=== PATIENT | female | born 1975 | race Caucasian/White ===

== ENCOUNTER 2022-05-13 13:25 | Inpatient (IN) ==
[2022-05-13] MEDS ORDERED: ONDANSETRON INJ 2 MG/ML 2 ML VIAL IV STA (13:46)
[2022-05-13] MEDS ORDERED: MoRPHine SULFATE 4 MG/ML 1 ML CARP\\VIAL IV PRN (13:46)
[2022-05-13] MEDS ORDERED: MoRPHine SULFATE 4 MG/ML 1 ML CARP\\VIAL IV STA (13:46)
[2022-05-13] MEDS ORDERED: SODIUM CHLORIDE 0.9% 1000ML 1,000 ML IV SCH (13:47)
--- NOTE | 2022-05-13 13:56 | Emergency Department Note ---
History of Present Illness General Chief complaint: Abdominal Pain Stated complaint: ABDOMINAL PAIN,SWELLING UP TO CHEST Time Seen by Provider: 05/13/22 13:32 History of Present Illness Maximum Pain Intensity: 8 Patient is a 46-year-old female with past medical history significant for hyp ertension, dyslipidemia, diabetes, anxiety, POTS, status post Whipple procedure, and recent history of acute pancreatitis who presents to the emergency department for evaluation of left-sided abdominal pain that started acutely this morning. Patient underwent a Whipple procedure for a pancreatic m ass about 9 years ago, subsequently developed diabetes. She is controlled on metformin, Lantus and sliding scale NovoLog. Patient relates that she developed left-sided abdominal pain at the beginning of April, subsequently was found to be suffering from acute pancreatitis. She was hospitalized at [facility] from through to 04/06. Patient relates that she has continued to have intermittent discomfort, and anorexia. She is unable to tolerate solids, states that it brings on abdominal pain. She is able to tolerate soft foods like applesauce, pudding and ice cream however and is able to tolerate liquids without difficulty. She was well until around 10:00 this morning, when she states that she developed a very steadily escalating left-sided abdominal pain, primarily in the upper abdomen underneath her ribs. It radiates to the epigastric region. She reports associated nausea and bloating. She is having dry heaves but no jesus vomiting. She took her normal morning medications, but nothing specifically for her pain which she rates an 8/10. She describes it as a constant, aching pain. It comes in waves. It is worse when she takes a deep breath. She states this feels very similar to her symptoms from last month. She states that she was told that the pancreatitis was secondary to alcohol use, she admitted to drinking about 5 beers on the weekends, she is abstained from alcohol strictly since her hospitalization. She was also found to have elevated triglycerides. No chest pain. No shortness of breath. She denies any fever or chills. No urinary symptoms. No diarrhea. No hematemesis, melena or hematochezia.. She does note that her blood sugars have been very labile over the last 2 days. She is following with her Dexcom and is double checking with fingerstick blood sugars. She did have a clear EGD about a month ago in follow- up for the episode of pancreatitis. Home Medications Medication Instructions Recorded Confirmed Type aspirin 81 mg chewable tablet 81 mg PO QAM 04/15/22 05/13/22 History (Aspirin Childrens) atorvastatin 40 mg tablet 40 mg PO DAILY 04/15/22 05/13/22 History insulin aspart U-100 100 unit/mL 1 sliding scale dose subcut 04/15/22 05/13/22 H istory (3 mL) subcutaneous pen (Novolog USEASDIRECTD FlexPen U-100 Insulin aspart) insulin glargine 100 unit/mL (3 14 unit subcut HS 04/15/22 05/13/22 History mL) subcutaneous pen (Lantus Solostar U-100 Insulin) metformin 500 mg tablet,extended 500 mg PO BID 04/15/22 05/13/22 History release 24 hr nadolol 40 mg tablet 40 mg PO QAM 04/15/22 05/13/22 History ondansetron HCl 4 mg tablet 4 mg PO Q6H PRN Nausea 04/15/22 05/13/22 History venlafaxine 75 mg tablet,extended 75 mg PO QAM 04/15/22 05/13/22 History release 24 hr fenofibrate nanocrystallized 145 145 mg PO QAM 05/13/22 05/13/22 History mg tablet omeprazole 20 mg capsule,delayed 20 mg PO QAM 05/13/22 05/13/22 History release Allergies Allergy/AdvReac Type Severity Reaction Status Date / Time clindamycin Allergy Intermediate itchy, Verified 05/13/22 16:17 diarrhea metoprolol Allergy Intermediate Chest Pain Verified 05/13/22 16:17 tamsulosin [From Flomax] AdvReac Mild nausea/vomi Verified 05/13/22 16:17 ting Past Med/Surg History Medical History (Updated 05/13/22 @ 18:00 by Moira Montoya PA-C) Anxiety Diabetes mellitus, type 2 History of COVID-19 beginning of 2021--mild symptoms, no symptoms now Hyperlipidemia Hypertension History of - per cardio records 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--had Whipple procedure done Pancreatitis recent admission at [facility] for this POTS (postural orthostatic tachycardia syndrome) Per cardio records Tachycardia Hx of--reason for Nadolol, per pt HR runs 85-99 with med "Inappropriate sinus tachycardia" per cardio records Transient ischemic attack (TIA) 2014--unknown cause--no deficits, on 81mg aspirin daily Surgical History History of abdominoplasty History of section History of colonoscopy History of esophagogastroduodenoscopy (EGD) History of hysterectomy History of Whipple procedure (~2013) with gallbladder removal History of wisdom tooth extraction Family History Other No family history of adverse response to anesthesia Social History Smoking Status: Never smoker Second Hand Exposure: No; Do You Dip or Chew Tobacco: No; Tobacco Cessation Education Requested by Patient: No Hx Alcohol Use: Yes Alcohol type: beer Hx Substance Use: No Preferred Language: Bulgarian Communication Ability: Effective District Commercial Superintendent Required: No Beliefs That Will Affect Care: None Current Living Situation: Spouse Other Information That Helps Us Care for You: No Feels Safe at Home: Yes Safety Concerns: Feels Safe At This Time Assistive Devices: None Review of Systems A total of 10 systems reviewed and were otherwise negative Physical Exam Vital Signs Vital Signs - 24 hr 05/13/22 13:26 05/13/22 14:11 05/13/22 15:12 Temperature 36.8 C Temperature Source Temporal Artery Scan Pulse Rate 90 Pulse Rate [Finger] 75 77 Respiratory Rate 18 18 18 Respiratory Effort / Characteristics Non-Labored Non-Labored Spontaneous Respiratory Depth Normal Normal Normal Blood Pressure 122/83 Blood Pressure [Right Arm] 136/83 114/72 Blood Pressure Mean 96 Blood Pressure Mean [Right Arm] 100 86 Blood Pressure Position Sitting Pulse Oximetry 99 96 98 Oxygen Delivery Method Room Air Room Air Room Air Sepsis Recent Fever Within 48 Hours No Sepsis New/Unexplained Change in Mental Status No Sepsis Action Taken by Nursing No Action Required CONSTITUTIONAL: Patient is an uncomfortable but otherwise nontoxic appearing 46-year-old female who is awake and alert and laying on the gurney. Spouse is at the bedside. EYES: Pupils equal, round, reactive to light and accommodation. EOMs intact without nystagmus. Sclera are anicteric. ENT: Tympanic membranes intact, with normal landmarks. External canals are clear. Oral and nasopharynx are clear. Mucous membranes are moist, no lesions, tongue and gums appear normal. CARDIOVASCULAR: Regular rate and rhythm. Peripheral pulses easily palpable. RESPIRATORY: Breath sounds equal and clear to auscultation. ABDOMEN: Bowel sounds are present. Multiple well-healed surgical scars are noted. The abdomen is mildly distended, tympanic to percussion throughout. She is quite tender to even light touch in the left mid to upper abdomen and in the epigastric region. Voluntary guarding noted. INTEGUMENTARY: No lesions or rash, normal skin turgor. LYMPH: No lymphadenopathy. Course Course The patient was seen and assessed as above. External medical records are reviewed, including [facility] records from her recent hospitalization and office visit. She presents emergency department for left-sided and epigastric abdominal pain, similar to when she had pancreatitis about 6 weeks ago. IV lock was initiated and laboratory studies were collected. EKG is performed and is as noted below. CBC with differential, CMP, magnesium, phosphorus, lipase, troponin, urinalysis and urine test were collected. She was hydrated with a liter bolus of normal saline solution then 250 cc/h, and medicated with morphine 4 mg and Zofran 4 mg IV. Laboratory studies per my interpretation note a normal white count at 9000, left shift noted. H&H 13.7 and 39.4, not indicative of anemia. no electrolyte imbalance requiring correction. Renal functions are normal. No indication for significant dehydration or ELSA. Transaminases are within normal limits. Lipase is elevated at 4789. High-sensitivity troponin is within normal limits and not indicative of ACS or AMI. Urine is contaminated with greater than 30 epithelial cells, there are 2+ bacteria noted with some WBCs and leukocyte esterase however and a urine culture is pending. The patient was reassessed. Laboratory studies were reviewed with her. She had had little relief with the initial morphine 4 mg IV but was just given a second dose of morphine 4 mg IV and was starting to feel better she rated her pain a 3/10. Laboratory studies were reviewed with her. After review of the information above and other included data, I feel the patient requires admission/observation for further care in the hospital. Case reviewed with attending physician, and with ED piano case and bench assembler and consultation was placed with the [facility] hospitalist service for further care and management. Patient was reviewed with Moira Montoya PA-C. A COVID test was obtained and is negative. Upon further questioning, the patient reports that she has had some repeat blood work since her hospitalization, and repeat lipase levels have been mildly elevated since but not as high as it was when she was hospitalized previ ously. She rested comfortably and remained stable pending hospitalist evaluation. Administered Medications Enoxaparin Sodium (Enoxaparin Inj 40 Mg/0.4 Ml Syr) 40 mg SQ Q24H TAMARA Stop: 06/12/22 19:29 Last Admin: 05/13/22 21:12 Dose: 40 mg Documented By: DIGNA Hydromorphone HCl (Hydromorphone Inj 0.5 Mg/0.5 Ml Syr) 0.5 mg IV Q6H PRN PRN Reason: Mod-Sev Pain (Scale 4-10) Stop: 05/27/22 19:09 Last Admin: 05/13/22 19:37 Dose: 0.5 mg Documented By: DIGNA Famotidine 20 mg/ Syringe 5 mls @ 2.5 mls/min IV Q12 TAMARA Stop: 06/12/22 20:59 Last Admin: 05/13/22 21:13 Dose: 2.5 mls/min Documented By: DIGNA Lactated Ringer's (Lr) 1,000 mls @ 250 mls/hr IV .Q4H TAMARA Stop: 06/12/22 19:09 Last Admin: 05/13/22 19:37 Dose: 250 mls/hr Documented By: DIGNA Insulin Aspart (Insulin Aspart Per Unit) 0 units SC ACHS TAMARA Stop: 06/12/22 20:59 Last Admin: 05/13/22 21:07 Dose: Not Given Documented By: KSJames Co-signed By: BRUNA Insulin Glargine (Lantus Per Unit Charge) 0 - 7 units SQ BID TAMARA Stop: 06/12/22 20:59 Last Admin: 05/13/22 21:11 Dose: 4 units Documented By: KSJames Co-signed By: EW Discontinued Medications Sodium Chloride (Nss 1000ml) 1,000 mls @ 999 mls/hr IV .Q1H1M TAMARA Stop: 05/13/22 14:47 Last Infusion: 05/13/22 15:11 Dose: 0 mls/hr Documented By: Admin: 05/13/22 14:06 Dose: 999 mls/hr Documented By: ANKUR Sodium Chloride (Nss 1000ml) 1,000 mls @ 250 mls/hr IV .Q4H TAMARA Stop: 06/12/22 13:59 Last Infusion: 05/13/22 19:36 Dose: 0 mls/hr Documented By: Admin: 05/13/22 17:46 Dose: 250 mls/hr Documented By: Infusion: 05/13/22 17:46 Dose: 250 mls/hr Documented By: Admin: 05/13/22 15:10 Dose: 250 mls/hr Documented By: ANKUR Ioversol (Optiray 350 100ml) 86 ml IV ONCE ONE Stop: 05/13/22 17:20 Last Admin: 05/13/22 17:21 Dose: 86 ml Documented By: ERIK Morphine Sulfate (Morphine Sulfate 4 Mg/Ml 1 Ml Carp\\Vial) 4 mg IV NOW STA Stop: 05/13/22 13:47 Last Admin: 05/13/22 14:06 Dose: 4 mg Documented By: ANKUR Morphine Sulfate (Morphine Sulfate 4 Mg/Ml 1 Ml Carp\\Vial) 4 mg IV Q1H PRN PRN Reason: Pain Stop: 05/27/22 13:45 Last Admin: 05/13/22 15:10 Dose: 4 mg Documented By: ANKUR Ondansetron HCl (Ondansetron Inj 2 Mg/Ml 2 Ml Vial) 4 mg IV NOW STA Stop: 05/13/22 13:47 Last Admin: 05/13/22 14:06 Dose: 4 mg Documented By: ANKUR Medical Decision Making Differential Diagnosis Differential diagnoses considered included acute pancreatitis, acute cholecystitis, ascending cholangitis, choledocholithiasis, aortic dissection, bowel obstruction, perforation, abscess, mass or malignancy, diverticulitis, UTI, kidney stone, pyelonephritis, among others. Medical Records Attestation: I reviewed the patient's medical records. Home Medications Current Medication List: was personally reviewed by me Laboratory Data Attestation: I reviewed the patient's lab results. 05/13/22 14:02 05/13/22 14:02 Lab Results 05/13/22 05/13/22 05/13/22 Range/Units 14:02 14:02 14:02 WBC 9.09 (4.8-10.8) K/ul RBC 4.20 (4.20-5.40) M/uL Hgb 13.7 (12.0-16.0) g/dl Hct 39.4 (37.0-47.0) % MCV 93.8 (80.0-100.0) fL MCH 32.6 (25.0-34.0) pg MCHC 34.8 (32.0-36.0) g/dL RDW Std Deviation 42.1 (36.4-46.3) fL RDW Coeff of [place] 12.2 (11.5-14.5) % Plt Count 288 (130-400) K/uL MPV 10.2 (9.4-12.4) fL Immature Gran % (Auto) 0.2 % Neut % (Auto) 72.7 % Lymph % (Auto) 17.4 % [place] % (Auto) 8.8 % Eos % (Auto) 0.6 % Baso % (Auto) 0.3 % Neut # (Auto) 6.61 H (1.40-6.50) K/uL Lymph # (Auto) 1.58 (1.2-3.4) K/uL [place] # (Auto) 0.80 H (0.11-0.59) K/uL Eos # (Auto) 0.05 (0-0.50) K/uL Baso # (Auto) 0.03 (0-0.2) K/uL Immature Gran # (Auto) 0.02 (0.01-0.20) K/uL Sodium 137 (136-145) mmol/L Potassium 4.1 (3.5-5.1) mmol/L Chloride 104 (98-107) mmol/L Carbon Dioxide 25 (21-32) mmol/L Anion Gap 8 (3-11) BUN 16 (6-23) mg/dl Creatinine 0.95 (0.6-1.2) mg/dl Est Cr Clr Drug Dosing 84.6 ml/min Est GFR ( Amer) 84.4 ml/min Est GFR (Non-Af Amer) 72.8 ml/min BUN/Creatinine Ratio 16.8 (10-20) Glucose 136 H (70-99(Fasting)) mg/dl Calcium 9.5 (8.5-10.1) mg/dl Phosphorus 3.1 (2.5-4.9) mg/dl Magnesium 1.8 (1.7-2.4) mg/dl Total Bilirubin 0.5 (0.2-1.0) mg/dl AST 19 (13-39) U/L ALT 18 (7-52) U/L Alkaline Phosphatase 71 (34-104) U/L Troponin I High Sens 2.6 (0-14) pg/ml Total Protein 7.5 (6.0-8.3) gm/dl Albumin 4.4 (3.4-5.0) gm/dl Globulin 3.1 (2.5-4.0) gm/dl Albumin/Globulin Ratio 1.4 (0.9-2) Lipase 4789 H (11-82) U/L Urine Color Yellow Urine Appearance Cloudy A (Clear) Urine pH 6.0 (4.5-7.5) Ur Specific [place] 1.019 (1.000-1.030) Urine Protein Negative (Negative) Urine Glucose (UA) Negative (Negative) Urine Ketones Negative (Negative) Urine Blood Negative (Negative) Urine Nitrite Negative (Negative) Urine Bilirubin Negative (Negative) Urine Urobilinogen Negative (Negative) Ur Leukocyte Esterase 1+ H (Negative) Urine WBC (Auto) 5-10 H (0-5) /hpf Urine RBC (Auto) 0-4 (0-4) /hpf U Hyaline Cast (Auto) 5-10 H (0-5) /lpf U Epithel Cells (Auto) >30 H (0-5) /lpf Urine Bacteria (Auto) 2+ H (Negative) Urine Yeast Not Reportable Urine Test (Negative) SARS-CoV-2, RNA, NAAT (NEGATIVE) 05/13/22 05/13/22 Range/Units 14:02 15:50 WBC (4.8-10.8) K/ul RBC (4.20-5.40) M/uL Hgb (12.0-16.0) g/dl Hct (37.0-47.0) % MCV (80.0-100.0) fL MCH (25.0-34.0) pg MCHC (32.0-36.0) g/dL RDW Std Deviation (36.4-46.3) fL RDW Coeff of [place] (11.5-14.5) % Plt Count (130-400) K/uL MPV (9.4-12.4) fL Immature Gran % (Auto) % Neut % (Auto) % Lymph % (Auto) % [place] % (Auto) % Eos % (Auto) % Baso % (Auto) % Neut # (Auto) (1.40-6.50) K/uL Lymph # (Auto) (1.2-3.4) K/uL [place] # (Auto) (0.11-0.59) K/uL Eos # (Auto) (0-0.50) K/uL Baso # (Auto) (0-0.2) K/uL Immature Gran # (Auto) (0.01-0.20) K/uL Sodium (136-145) mmol/L Potassium (3.5-5.1) mmol/L Chloride (98-107) mmol/L Carbon Dioxide (21-32) mmol/L Anion Gap (3-11) BUN (6-23) mg/dl Creatinine (0.6-1.2) mg/dl Est Cr Clr Drug Dosing ml/min Est GFR ( Amer) ml/min Est GFR (Non-Af Amer) ml/min BUN/Creatinine Ratio (10-20) Glucose (70-99(Fasting)) mg/dl Calcium (8.5-10.1) mg/dl Phosphorus (2.5-4.9) mg/dl Magnesium (1.7-2.4) mg/dl Total Bilirubin (0.2-1.0) mg/dl AST (13-39) U/L ALT (7-52) U/L Alkaline Phosphatase (34-104) U/L Troponin I High Sens (0-14) pg/ml Total Protein (6.0-8.3) gm/dl Albumin (3.4-5.0) gm/dl Globulin (2.5-4.0) gm/dl Albumin/Globulin Ratio (0.9-2) Lipase (11-82) U/L Urine Color Urine Appearance (Clear) Urine pH (4.5-7.5) Ur Specific [place] (1.000-1.030) Urine Protein (Negative) Urine Glucose (UA) (Negative) Urine Ketones (Negative) Urine Blood (Negative) Urine Nitrite (Negative) Urine Bilirubin (Negative) Urine Urobilinogen (Negative) Ur Leukocyte Esterase (Negative) Urine WBC (Auto) (0-5) /hpf Urine RBC (Auto) (0-4) /hpf U Hyaline Cast (Auto) (0-5) /lpf U Epithel Cells (Auto) (0-5) /lpf Urine Bacteria (Auto) (Negative) Urine Yeast Urine Test Negative (Negative) SARS-CoV-2, RNA, NAAT NEGATIVE (NEGATIVE) Imaging Data Radiologist's Impression: Abdomen/Pelvis CT 05/13/22 16:43 CT SCAN OF THE ABDOMEN AND PELVIS WITH IV CONTRAST CLINICAL HISTORY: Generalized abdominal pain. COMPARISON STUDY: No priors. TECHNIQUE: Following the IV administration of 86 cc of Optiray 350, CT scan of the abdomen and pelvis is performed from the lung bases to the proximal femora. Images are reviewed in the axial, sagittal, and coronal planes. IV contrast was administered without complication. A dose lowering technique was utilized adhering to the principles of ALARA. CT DOSE: 569.34 mGy.cm FINDINGS: Lung bases: The heart is normal in size and without pericardial effusion. There is a large calcified granuloma in the right lower lobe. The lung bases are otherwise clear noting dependent atelectasis. Liver: The contrast-enhanced liver is top normal in size and demonstrates diff usely diminished attenuation indicating steatosis. There is no intrahepatic biliary ductal dilatation. The hepatic veins and portal veins are patent. Gallbladder: Surgically absent noting clips in the gallbladder fossa. Spleen: Normal in size and attenuation. Pancreas: The pancreatic head is surgically absent suggesting previous Whipple procedure. There is peripancreatic inflammation and fluid consistent with acute pancreatitis. The gland enhances throughout and the duct is normal in caliber. No organized peripancreatic fluid collection is seen. The splenic vein is patent. Adrenal glands: Unremarkable. Kidneys: The contrast enhanced kidneys are normal in size and without hydronephrosis. The kidneys enhance symmetrically. Abdominal vasculature: The abdominal aorta is normal in course and caliber noting scattered foci of atherosclerotic calcification. Bowel: There is postoperative change from distal gastrectomy and gastrojejunostomy. There is moderate colonic fecal retention. No bowel obstruction is identified. The appendix is well-visualized and normal. Peritoneum: There is no intraperitoneal free air or abdominal ascites. There is a fat-containing umbilical hernia. Lymphadenopathy: None. Pelvic viscera: The bladder is normal as visualized. The uterus is surgically absent. No adnexal lesion is seen. Skeletal structures: No lytic or blastic lesions are seen. There is moderate degenerative disc space narrowing at L5-S1. IMPRESSION: 1. Findings suggest previous Whipple procedure. Correlate with the operative history. 2. There is evidence of acute pancreatitis. 3. The pancreas enhances throughout and there is no organized peripancreatic fluid collection. 4. Hepatic steatosis. 5. Additional findings as above. ACT 112: Negative or not required by law. Electronically signed by: Gerardo Cordoba M.D. 05/13/2022 5:31 PM ECG Data Attestation: I personally reviewed and interpreted this ECG as follows: Indication: + abdominal pain Rate (beats per minute): 71 Rhythm: + normal sinus ECG [place]: + Normal ECG ST segments: + Normal ST segments Comparison ECG Date: no prior available MDM Narrative See ED Course. Impression & Plan Pancreatitis, Left upper quadrant abdominal pain Discharge Plan Visit Data Chief Complaint: Abdominal Pain Stated Complaint: ABDOMINAL PAIN,SWELLING UP TO CHEST ED Provider: Raj Mejia ED Midlevel Provider: Jerman Odonnell Discharge Problem: Pancreatitis, Left upper quadrant abdominal pain Patient Disposition: Admitted As Inpatient Discharge Instructions Interventions: ED Discharge Assessment Last Done: 05/13/22 18:00
[2022-05-13 14:40] LABS: Basophils # (auto) 0.03 K/uL (0-0.2); Basophils % (auto) 0.3 %; Eosinophils # (auto) 0.05 K/uL (0-0.50); Eosinophils % (auto) 0.6 %; Hematocrit (blood only) 39.4 % (37.0-47.0); Hemoglobin 13.7 g/dl (12.0-16.0); Immature Granulocytes # (auto) 0.02 K/uL (0.01-0.20); Immature Granulocytes % (auto) 0.2 %; Lymphocytes # (auto) 1.58 K/uL (1.2-3.4); Lymphocytes % (auto) 17.4 %; Mean Corpuscular Hemoglobin 32.6 pg (25.0-34.0); Mean Corpuscular Hgb Conc 34.8 g/dL (32.0-36.0); Mean Corpuscular Volume 93.8 fL (80.0-100.0); Mean Platelet Volume 10.2 fL (9.4-12.4); Monocytes % (auto) 8.8 %; Neutrophils # (auto) 6.61 K/uL (1.40-6.50); Neutrophils % (auto) 72.7 %; Platelet Count 288 K/uL (130-400); RDW Coefficient of Variation 12.2 % (11.5-14.5); RDW Standard Deviation 42.1 fL (36.4-46.3); White Blood Count 9.09 K/ul (4.8-10.8)
[2022-05-13 14:51] LABS: Appearance Urine Cloudy (Clear); Bacteria Urine Automated 2+ (Negative); Bilirubin Urine Negative (Negative); Blood Urine Negative (Negative); Color Urine Yellow; Epithelial Cell Urine Auto >30 /lpf (0-5); Glucose Urine UA Negative (Negative); Ketones Urine Negative (Negative); Leukocyte Esterase Urine 1+ (Negative); Nitrite Urine Negative (Negative); Protein Urine Negative (Negative); RBC Urine Automated 0-4 /hpf (0-4); Specific Gravity Urine 1.019 (1.000-1.030); Urobilinogen Urine Negative (Negative)
[2022-05-13 15:08] LABS: Albumin Level 4.4 gm/dl (3.4-5.0); Bilirubin,Total 0.5 mg/dl (0.2-1.0); Calcium 9.5 mg/dl (8.5-10.1); Magnesium 1.8 mg/dl (1.7-2.4); Potassium 4.1 mmol/L (3.5-5.1)
[2022-05-13] MEDS: SODIUM CHLORIDE 0.9% 1000ML 1,000 ML IV SCH ×2 (15:10→17:46)
[2022-05-13 15:11] LABS: Pregnancy Test, Urine Negative (Negative)
[2022-05-13 15:14] LABS: BUN Creatinine Ratio 16.8 (10-20); Creatinine Clr Calc Pharmacy 84.6 ml/min; Est GFR (African American) 84.4 ml/min; Est GFR (Non-African American) 72.8 ml/min
[2022-05-13 15:39] LABS: Albumin Globulin Ratio 1.4 (0.9-2); Globulin 3.1 gm/dl (2.5-4.0); Phosphorus 3.1 mg/dl (2.5-4.9); Total Protein 7.5 gm/dl (6.0-8.3); Troponin I High Sensitivity 2.6 pg/ml (0-14)
--- NOTE | 2022-05-13 16:10 | History & Physical Report ---
Date of Service May 13, 2022 Assessment & Plan (1) Pancreatitis: (2) Left upper quadrant abdominal pain: Plan: Patient is 46-year-old female with PMH benign pancreatic NET s/p Whipple in 2013, post pancreatectomy diabetes, TIA, depression presented to ER with co mplaint of epigastric, LUQ abdominal pain, nausea that started today. H/O pancreatitis in April 2022 thought secondary to ETOH. Denies fever/chills. History EUS on 04/17/2022: Limited exam due to Whipple's anatomy, fatty liver, visualized part of the body and tail of the remnant pancreas were within normal 04/16/22 lipid panel: Total cholesterol 203, LDL: 1006, HDL: 42, triglycerides 275. In ER afebrile, vitals stable. No leukocytosis. Lipase: 4789. LFT's WNL CT Abd/pelvis: Findings suggest previous Whipple procedure. There is evidence of acute pancreatitis. The pancreas enhances throughout and there is no organized peripancreatic fluid collection. Hepatic steatosis. In ER given morphine, 1L NSS NPO LR at 250ml/hr IV Tylenol, Dilaudid prn IV pepcid, IV Protonix Continue atorvastatin, fenofibrate GI consult CBC, CMP, lipase in am (3) Abnormal urinalysis: Plan: UA: 1+ leuk esterase, >30 epithelial, 2+ bacteria. This was NOT clean catch. Patient without urinary symptoms Obtained new clean catch UA and is WNL (4) Diabetes mellitus, type 2: Plan: Diabetes s/p pancreatectomy A1c: 7.7 on 04/16/22 Hold home basal bolus insulin, metformin Basal bolus insulin per protocol (5) Hypertension: Plan: Continue nadolol (6) Hyperlipidemia: Plan: Continue atorvastatin, fenofibrate (7) Transient ischemic attack (TIA): Plan: Continue aspirin, atorvastatin (8) Depression: (9) Anxiety: Plan: Continue venlafaxine DVT Prophylaxis Lovenox SQ Full code as per discussion with pt Follows with Luz Marina Perez PA-C for routine care Pt was seen and care coordinated with Dr Marcano. See addendum I spent a total of 80 minutes reviewing notes, outpatient records, labs, medication, documenting and providing care for this patient excluding time spent in the performance of separately billed services. History of Present Illness Chief Complaint: abdominal pain Primary Care Provider: Luz Marina Perez PA-C Patient is 46-year-old female with PMH benign pancreatic NET s/p Whipple in 2013, post pancreatectomy diabetes, TIA, depression presented to ER with complaint of abdominal pain that started today. Patient reports woke up this morning and was feeling okay then later started with epigastric, left upper quadrant pain described as cramping. Reports pain radiates up to left chest. Pain aggravated with palpation or movement. States this feels similar to when she had pancreatitis last month. Also complains of nausea, dry heaves. Denies any known fever, chills. History of hospital admission at [facility] on 04/02/22-04/06/22 for pancreatitis that was thought secondary to alcohol, however had noted triglycerides while admitted and repeat outpatient fasting lipid panel was suggested. Patient reports not drinking ETOH, not taking NSAIDs. Has been having postprandial epigastric pain, nausea for months. She states since her last admission in April feels postprandial epigastric pain and bloating, nausea. She has been eating liquids, applesauce, pudding as that is what she can tolerate. Reports a couple days ago did tolerate Caesar salad. Denies fever/chills, diaphoresis, diarrhea, constipation, hematemesis DECKER, dizziness, syncope, vision changes, neck pain, SOB, orthopnea, palpitations, cough, sore throat, rhinorrhea, paresthesias, weakness, extremity weakness, extremity edema, rashes, dysuria, hematuria, urinary frequency Outpatient chart reviewed. 04/04/2022:CT abdomen pelvis: Mild. Pancreatic stranding. No peripancreatic fluid collection. Postoperative changes of prior Whipple EUS on 04/17/2022: Limited exam due to Whipple's anatomy, fatty liver, visualized part of the body and tail of the remnant pancreas were within normal 04/16/22 lipid panel: Total cholesterol 203, LDL: 1006, HDL: 42, triglycerides 275. Patient was started on fenofibrate Allergies Allergy/AdvReac Type Severity Reaction Status Date / Time clindamycin Allergy Intermediate itchy, Verified 05/13/22 16:17 diarrhea metoprolol Allergy Intermediate Chest Pain Verified 05/13/22 16:17 tamsulosin [From Flomax] AdvReac Mild nausea/vomi Verified 05/13/22 16:17 ting Home Medications Medication Instructions Recorded Confirmed Type aspirin 81 mg chewable tablet 81 mg PO QAM 04/15/22 05/13/22 History (Aspirin Childrens) atorvastatin 40 mg tablet 40 mg PO DAILY 04/15/22 05/13/22 History insulin aspart U-100 100 unit/mL 1 sliding scale dose subcut 04/15/22 05/13/22 History (3 mL) subcutaneous pen (Novolog USEASDIRECTD FlexPen U-100 Insulin aspart) insulin glargine 100 unit/mL (3 14 unit subcut HS 04/15/22 05/13/22 History mL) subcutaneous pen (Lantus Solostar U-100 Insulin) metformin 500 mg tablet,extended 500 mg PO BID 04/15/22 05/13/22 History release 24 hr nadolol 40 mg tablet 40 mg PO QAM 04/15/22 05/13/22 History ondansetron HCl 4 mg tablet 4 mg PO Q6H PRN Nausea 04/15/22 05/13/22 History venlafaxine 75 mg tablet,extended 75 mg PO QAM 04/15/22 05/13/22 History release 24 hr fenofibrate nanocrystallized 145 145 mg PO QAM 05/13/22 05/13/22 History mg tablet omeprazole 20 mg capsule,delayed 20 mg PO QAM 05/13/22 05/13/22 History release Past Med/Surg History Medical History (Updated 05/13/22 @ 18:00 by Moira Montoya PA-C) Anxiety Diabetes mellitus, type 2 History of COVID-19 beginning of 2021--mild symptoms, no symptoms now Hyperlipidemia Hypertension History of - per cardio records 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--had Whipple procedure done Pancreatitis recent admission at [facility] for this POTS (postural orthostatic tachycardia syndrome) Per cardio records Tachycardia Hx of--reason for Nadolol, per pt HR runs 85-99 with med "Inappropriate sinus tachycardia" per cardio records Transient ischemic attack (TIA) 2014--unknown cause--no deficits, on 81mg aspirin daily Surgical History History of abdominoplasty History of section History of colonoscopy History of esophagogastroduodenoscopy (EGD) History of hysterectomy History of Whipple procedure (~2013) with gallbladder removal History of wisdom tooth extraction Family History Other No family history of adverse response to anesthesia Social History Smoking Status: Never smoker Second Hand Exposure: No; Do You Dip or Chew Tobacco: No; Tobacco Cessation Education Requested by Patient: No Hx Alcohol Use: Yes Alcohol type: beer Hx Substance Use: No Preferred Language: [place]ib[place]ian Communication Ability: Effective Java J2Ee Lead Required: No Beliefs That Will Affect Care: None Current Living Situation: Spouse Other Information That Helps Us Care for You: No Feels Safe at Home: Yes Safety Concerns: Feels Safe At This Time Assistive Devices: None Review of Systems Review of Systems: All systems reviewed & are unremarkable except as noted in HPI & below Physical Exam Physical Exam: General: no distress, WDWN Head: normocephalic, atraumatic Eyes: conjunctiva non-injected, anicteric ENT: normal inspection external ears, nose, mucous membranes moist Neck: supple, trachea midline Lungs: clear, no respiratory distress, no wheezing/rhonchi/rales CV: RRR, no murmur, no pretibial edema Abd: +healed surgical scars, normal BS, soft, +tenderness to palpation epigastric, LUQ with guarding Ext: no cyanosis, no calf tenderness Neuro: A&O x 3, no focal deficits noted, normal affect Skin: warm, dry Results & Data Results & Data Vital Signs (Past 12 Hours) Vital Signs Temp Pulse Pulse Resp BP BP Pulse Ox 05/13/22 15:12 77 18 114/72 98 05/13/22 14:11 75 18 136/83 96 05/13/22 13:26 36.8 C 90 18 122/83 99 O2 Del Method 05/13/22 15:12 Room Air 05/13/22 14:11 Room Air 05/13/22 13:26 Room Air Laboratory Results Short CBC 05/13/22 Range/Units 14:02 WBC 9.09 (4.8-10.8) K/ul Hgb 13.7 (12.0-16.0) g/dl Hct 39.4 (37.0-47.0) % Plt Count 288 (130-400) K/uL BMP 05/13/22 14:02 Sodium 137 Potassium 4.1 Chloride 104 Carbon Dioxide 25 BUN 16 Creatinine 0.95 Glucose 136 H Calcium 9.5 Liver Function 05/13/22 Range/Units 14:02 Total Bilirubin 0.5 (0.2-1.0) mg/dl AST 19 (13-39) U/L ALT 18 (7-52) U/L Alkaline Phosphatase 71 (34-104) U/L Albumin 4.4 (3.4-5.0) gm/dl Urine 05/13/22 Range/Units 14:02 Urine Color Yellow Urine Appearance Cloudy A (Clear) Urine pH 6.0 (4.5-7.5) Ur Specific [place] 1.019 (1.000-1.030) Urine Protein Negative (Negative) Urine Glucose (UA) Negative (Negative) Diagnostic Findings Abdomen/Pelvis CT 05/13/22 16:43 CT SCAN OF THE ABDOMEN AND PELVIS WITH IV CONTRAST CLINICAL HISTORY: Generalized abdominal pain. COMPARISON STUDY: No priors. TECHNIQUE: Following the IV administration of 86 cc of Optiray 350, CT scan of the abdomen and pelvis is performed from the lung bases to the proximal femora. Images are reviewed in the axial, sagittal, and coronal planes. IV contrast was administered without complication. A dose lowering technique was utilized adhering to the principles of ALARA. CT DOSE: 569.34 mGy.cm FINDINGS: Lung bases: The heart is normal in size and without pericardial effusion. There is a large calcified granuloma in the right lower lobe. The lung bases are otherwise clear noting dependent atelectasis. Liver: The contrast-enhanced liver is top normal in size and demonstrates diffusely diminished attenuation indicating steatosis. There is no intrahepatic biliary ductal dilatation. The hepatic veins and portal veins are patent. Gallbladder: Surgically absent noting clips in the gallbladder fossa. Spleen: Normal in size and attenuation. Pancreas: The pancreatic head is surgically absent suggesting previous Whipple procedure. There is peripancreatic inflammation and fluid consistent with acute pancreatitis. The gland enhances throughout and the duct is normal in caliber. No organized peripancreatic fluid collection is seen. The splenic vein is patent. Adrenal glands: Unremarkable. Kidneys: The contrast enhanced kidneys are normal in size and without hydronephrosis. The kidneys enhance symmetrically. Abdominal vasculature: The abdominal aorta is normal in course and caliber noting scattered foci of atherosclerotic calcification. Bowel: There is postoperative change from distal gastrectomy and gastrojejunostomy. There is moderate colonic fecal retention. No bowel obstruction is identified. The appendix is well-visualized and normal. Peritoneum: There is no intraperitoneal free air or abdominal ascites. There is a fat-containing umbilical hernia. Lymphadenopathy: None. Pelvic viscera: The bladder is normal as visualized. The uterus is surgically absent. No adnexal lesion is seen. Skeletal structures: No lytic or blastic lesions are seen. There is moderate degenerative disc space narrowing at L5-S1. IMPRESSION: 1. Findings suggest previous Whipple procedure. Correlate with the operative history. 2. There is evidence of acute pancreatitis. 3. The pancreas enhances throughout and there is no organized peripancreatic fluid collection. 4. Hepatic steatosis. 5. Additional findings as above. ACT 112: Negative or not required by law. Electronically signed by: Gerardo Cordoba M.D. 05/13/2022 5:31 PM Supervising Physician Co-Signing Physician Notes Patient is a 46-year-old female with history of Whipple's procedure for benign pancreatic NET, post pancreatectomy diabetes, TIA and other medical problems presents with history of abdominal pain predominantly epigastric, left upper quadrant since 1 day duration. She admits to drinking alcohol socially but not on any regular basis. Patient had similar episode of pancreatitis 1 month ago. She also states having nausea but denies any vomiting, fever, chills, diarrhea. Please review HPI for complete details of presentation. I personally reviewed blood work, imaging studies and EKG. Lipase is elevated at 4789. Initial urinalysis suggestive of possible UTI but repeat urinalysis within normal limits. CT abdomen suggestive of postoperative changes from Whipple's procedure, evidence of acute pancreatitis noted. EKG showed no acute changes. On exam patient is well-built and nourished, no apparent distress, normocephalic atraumatic, EOMI, normal breath sounds, clear to auscultation, S1-S2, no murmur, no pedal edema, abdomen soft, tender predominantly epigastric, left upper and lower quadrant, normal bowel sounds, alert, awake, oriented, grossly no focal deficits. Patient is admitted for management of acute pancreatitis. We will keep her n.p.o. IV fluids, pain control, GI consulted. Check urine tox screen. I personally reviewed the record. Patient is interviewed and examined at bedside. Patient's care is coordinated with Moira Montoya PA-C. Please refer to the documentation above for details of patient's presentation and for discussion of other issues.
[2022-05-13] MEDS ORDERED: OPTIRAY 350 100ml IV ONE (17:19)
--- NOTE | 2022-05-13 17:34 | CT Scan Report ---
CT SCAN OF THE ABDOMEN AND PELVIS WITH IV CONTRAST CLINICAL HISTORY: Generalized abdominal pain. COMPARISON STUDY: No priors. TECHNIQUE: Following the IV administration of 86 cc of Optiray 350, CT scan of the abdomen and pelvi s is performed from the lung bases to the proximal femora. Images are reviewed in the axial, sagittal , and coronal planes. IV contrast was administered without complication. A dose lowering technique wa s utilized adhering to the principles of ALARA. CT DOSE: 569.34 mGy.cm FINDINGS: Lung bases: The heart is normal in size and without pericardial effusion. There is a large calcified granuloma in the right lower lobe. The lung bases are otherwise clear noting dependent atelectasis. Liver: The contrast-enhanced liver is top normal in size and demonstrates diffusely diminished attenu ation indicating steatosis. There is no intrahepatic biliary ductal dilatation. The hepatic veins and portal veins are patent. Gallbladder: Surgically absent noting clips in the gallbladder fossa. Spleen: Normal in size and attenuation. Pancreas: The pancreatic head is surgically absent suggesting previous Whipple procedure. There is pe ripancreatic inflammation and fluid consistent with acute pancreatitis. The gland enhances throughout and the duct is normal in caliber. No organized peripancreatic fluid collection is seen. The splenic vein is patent. Adrenal glands: Unremarkable. Kidneys: The contrast enhanced kidneys are normal in size and without hydronephrosis. The kidneys enh ance symmetrically. Abdominal vasculature: The abdominal aorta is normal in course and caliber noting scattered foci of a therosclerotic calcification. Bowel: There is postoperative change from distal gastrectomy and gastrojejunostomy. There is moderate colonic fecal retention. No bowel obstruction is identified. The appendix is well-visualized and no rmal. Peritoneum: There is no intraperitoneal free air or abdominal ascites. There is a fat-containing umbi lical hernia. Lymphadenopathy: None. Pelvic viscera: The bladder is normal as visualized. The uterus is surgically absent. No adnexal lesi on is seen. Skeletal structures: No lytic or blastic lesions are seen. There is moderate degenerative disc space narrowing at L5-S1. IMPRESSION: 1. Findings suggest previous Whipple procedure. Correlate with the operative history. 2. There is evidence of acute pancreatitis. 3. The pancreas enhances throughout and there is no organized peripancreatic fluid collection. 4. Hepatic steatosis. 5. Additional findings as above. ACT 112: Negative or not required by law. Electronically signed by: Gerardo Cordoba M.D. 05/13/2022 5:31 PM
[2022-05-13 18:34] LABS: Appearance Urine Clear (Clear); Bilirubin Urine Negative (Negative); Blood Urine Negative (Negative); Color Urine Yellow; Glucose Urine UA Negative (Negative); Ketones Urine Negative (Negative); Leukocyte Esterase Urine Negative (Negative); Nitrite Urine Negative (Negative); Protein Urine Negative (Negative); Specific Gravity Urine > 1.045 (1.000-1.030); Urobilinogen Urine Negative (Negative)
[2022-05-13] MEDS ORDERED: GLUCOSE 10 TAB/TUBE PO PRN (19:10)
[2022-05-13] MEDS ORDERED: DEXTROSE 50% 50 ML SYRINGE IV PRN (19:10)
[2022-05-13] MEDS ORDERED: ACETAMINOPHEN 1,000 MG/100 ML VIAL IV PRN (19:10)
[2022-05-13] MEDS ORDERED: GLUCAGON FOR INJ 1 MG VIAL SQ PRN (19:10)
[2022-05-13] MEDS ORDERED: GLUCOSE 40% GEL 15 GM TUBE PO PRN (19:10)
[2022-05-13] MEDS ORDERED: CARBOHYDRATES FOR HYPOGLYCEMIA PO PRN (19:10)
[2022-05-13] MEDS: LACTATED RINGER'S 1,000 ML IV SCH ×2 (19:37→23:14)
[2022-05-13] MEDS: HYDROmorphone INJ 0.5 MG/0.5 ML SYR IV PRN (19:37)
[2022-05-13] MEDS: INSULIN ASPART PER UNIT CHARGE SC SCH (21:07)
[2022-05-13] MEDS: LANTUS PER UNIT CHARGE SQ SCH (21:11)
[2022-05-13] MEDS: ENOXAPARIN INJ 40 MG/0.4 ML SYR SQ SCH (21:12)
[2022-05-13] MEDS: FAMOTIDINE 20 MG in SYRINGE 3 ML IV SCH (21:13)
[2022-05-14] MEDS: HYDROmorphone INJ 0.5 MG/0.5 ML SYR IV PRN ×4 (01:25→22:03)
[2022-05-14 02:35] LABS: Amphetamines+Metham, Urine Neg (Neg); Barbiturates, Urine Neg (Neg); Benzodiazepine, Urine Neg (Neg); Cocaine, Urine Neg (Neg); MDMA (Ecstacy), Urine Neg (Neg); Methadone, Urine Neg (Neg); Opiate, Urine Pos (Neg); Phencyclidine, Urine Neg (Neg)
[2022-05-14] MEDS: LACTATED RINGER'S 1,000 ML IV SCH ×5 (03:06→20:11)
[2022-05-14] MEDS: ATORVASTATIN 40 MG TAB PO SCH (08:09)
[2022-05-14] MEDS: INSULIN ASPART PER UNIT CHARGE SC SCH ×3 (08:09→17:44)
[2022-05-14] MEDS: FENOFIBRATE NANOCRYSTALLIZED 145 MG TABLET PO SCH (08:09)
[2022-05-14] MEDS: nadoloL 40 MG TAB PO SCH (08:10)
[2022-05-14] MEDS: VENLAFAXINE HCL XR 75 MG CAPXR PO SCH (08:10)
[2022-05-14] MEDS: POLYETHYLENE (MIRALAX) 17 GM PACK PO PRN (08:19)
[2022-05-14] MEDS: ASPIRIN 81 MG CHEW PO SCH (08:19)
[2022-05-14] MEDS: LANTUS PER UNIT CHARGE SQ SCH ×2 (08:19→20:03)
[2022-05-14] MEDS: FAMOTIDINE 20 MG in SYRINGE 3 ML IV SCH ×2 (08:19→20:10)
[2022-05-14 08:42] LABS: Hematocrit (blood only) 34.2 % (37.0-47.0); Hemoglobin 11.1 g/dl (12.0-16.0); Mean Corpuscular Hemoglobin 31.6 pg (25.0-34.0); Mean Corpuscular Hgb Conc 32.5 g/dL (32.0-36.0); Mean Corpuscular Volume 97.4 fL (80.0-100.0); Mean Platelet Volume 10.1 fL (9.4-12.4); Platelet Count 235 K/uL (130-400); RDW Coefficient of Variation 12.5 % (11.5-14.5); RDW Standard Deviation 44.4 fL (36.4-46.3); Red Blood Count 3.51 M/uL (4.20-5.40); White Blood Count 7.95 K/ul (4.8-10.8)
[2022-05-14 09:11] LABS: Albumin Globulin Ratio 1.5 (0.9-2); Albumin Level 3.5 gm/dl (3.4-5.0); BUN Creatinine Ratio 13.2 (10-20); Bilirubin Direct 0.1 mg/dl (0-0.2); Bilirubin,Total 0.5 mg/dl (0.2-1.0); Calcium 8.5 mg/dl (8.5-10.1); Creatinine Clr Calc Pharmacy 104.6 ml/min; Est GFR (African American) 110.6 ml/min; Est GFR (Non-African American) 95.4 ml/min; Globulin 2.4 gm/dl (2.5-4.0); Potassium 3.6 mmol/L (3.5-5.1); Total Protein 5.9 gm/dl (6.0-8.3)
[2022-05-14] MEDS: ONDANSETRON INJ 2 MG/ML 2 ML VIAL IV PRN ×2 (09:27→22:09)
--- NOTE | 2022-05-14 10:08 | Gastrointestinal Consultation ---
Date of Consultation May 14, 2022 History of Present Illness Reason for Consultation: Pancreatitis Requesting Physician: Dr. Mendoza Attending Physician: Jillian Huggins MD Allergies Allergy/AdvReac Type Severity Reaction Status Date / Time clindamycin Allergy Intermediate itchy, Verified 05/13/22 16:17 diarrhea metoprolol Allergy Intermediate Chest Pain Verified 05/13/22 16:17 tamsulosin [From Flomax] AdvReac Mild nausea/vomi Verified 05/13/22 16:17 ting Home Medications Medication Instructions Recorded Confirmed Type aspirin 81 mg chewable tablet 81 mg PO QAM 04/15/22 05/13/22 History (Aspirin Childrens) atorvastatin 40 mg tablet 40 mg PO DAILY 04/15/22 05/13/22 History insulin aspart U-100 100 unit/mL 1 sliding scale dose subcut 04/15/22 05/13/22 History (3 mL) subcutaneous pen (Novolog USEASDIRECTD FlexPen U-100 Insulin aspart) insulin glargine 100 unit/mL (3 14 unit subcut HS 04/15/22 05/13/22 History mL) subcutaneous pen (Lantus Solostar U-100 Insulin) metformin 500 mg tablet,extended 500 mg PO BID 04/15/22 05/13/22 History release 24 hr nadolol 40 mg tablet 40 mg PO QAM 04/15/22 05/13/22 History ondansetron HCl 4 mg tablet 4 mg PO Q6H PRN Nausea 04/15/22 05/13/22 History venlafaxine 75 mg tablet,extended 75 mg PO QAM 04/15/22 05/13/22 History release 24 hr fenofibrate nanocrystallized 145 145 mg PO QAM 05/13/22 05/13/22 History mg tablet omeprazole 20 mg capsule,delayed 20 mg PO QAM 05/13/22 05/13/22 History release Patient History Medical History (Updated 05/13/22 @ 18:00 by Moira Montoya PA-C) Anxiety Diabetes mellitus, type 2 History of COVID-19 beginning of 2021--mild symptoms, no symptoms now Hyperlipidemia Hypertension History of - per cardio records 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--had Whipple procedure done Pancreatitis recent admission at [facility] for this POTS (postural orthostatic tachycardia syndrome) Per cardio records Tachycardia Hx of--reason for Nadolol, per pt HR runs 85-99 with med "Inappropriate sinus tachycardia" per cardio records Transient ischemic attack (TIA) 2014--unknown cause--no deficits, on 81mg aspirin daily Surgical History History of abdominoplasty History of section History of colonoscopy History of esophagogastroduodenoscopy (EGD) History of hysterectomy History of Whipple procedure (~2013) with gallbladder removal History of wisdom tooth extraction Family History Other No family history of adverse response to anesthesia Social History Smoking Status: Never smoker Second Hand Exposure: No; Do You Dip or Chew Tobacco: No; Tobacco Cessation Education Requested by Patient: No Hx Alcohol Use: Yes Alcohol type: beer Hx Substance Use: No Preferred Language: Malaysian Communication Ability: Effective Sample Maker Original Required: No Beliefs That Will Affect Care: None Current Living Situation: Spouse Other Information That Helps Us Care for You: No Feels Safe at Home: Yes Safety Concerns: Feels Safe At This Time Assistive Devices: None Results & Data Vital Signs (Past 12 Hours) Vital Signs Temp Pulse Resp BP Pulse Ox O2 Del Method 05/14/22 07:28 36.7 C 59 L 16 107/68 99 Room Air 05/13/22 22:49 36.5 C 67 20 102/70 94 Room Air
[2022-05-14] MEDS: PANTOprazole 40 MG in SYRINGE 0 ML IV SCH (11:21)
--- NOTE | 2022-05-14 11:38 | Gastrointestinal Consultation ---
Date of Consultation May 14, 2022 Assessment & Plan (1) Pancreatitis: (2) Left upper quadrant abdominal pain: Plan Patient is a 46 y.o. female with a history of NET s/p Whipple 2013 admitted for recurrent acute pancreatitis, idiopathic at this time. -NPO. -IV fluids at 250 ml/hr. -Supportive care with IV analgesics/antiemetics PRN. -Consider adding Creon as outpatient for likely EPI. -Trend lipase. -Rest per primary team. Thank you for allowing us to participate in the care of this patient. If you have any questions or concerns, please do not hesitate to contact us. History of Present Illness Reason for Consultation: Pancreatitis Requesting Physician: Moira Montoya PA-C Attending Physician: Jillian Huggins MD History of Present Illness Patient is a 46 y.o. female with a history of NET s/p Whipple in 2013. She states that she was prescribed digestive enzymes initially after surgery but no longer is prescribed Creon. She has developed post pancreatectomy diabetes. She was admitted in April with acute pancreatitis. Did undergo an EUS by Dr. Nguyen which was unremarkable. States she recovered but her acute illness but symptoms returned yesterday with associated nausea with bilious vomiting. No fever or chills. Describes sharp pain in the LUQ and epigastric region with radiation into the lower abdomen. Lipase was elevated [place] [address] evidence of inflammatory change. Liver panel was normal. She has been made NPO and started on IV fluid resuscitation as well as IV antiemetics/analgesics. Denies any ETOH consumption in the past 2 months. No estrogen use or new medications. Reports her BSG levels have been more irregular lately. Allergies Allergy/AdvReac Type Severity Reaction Status Date / Time clindamycin Allergy Intermediate itchy, Verified 05/13/22 16:17 diarrhea metoprolol Allergy Intermediate Chest Pain Verified 05/13/22 16:17 tamsulosin [From Flomax] AdvReac Mild nausea/vomi Verified 05/13/22 16:17 ting Home Medications Medication Instructions Recorded Confirmed Type aspirin 81 mg chewable tablet 81 mg PO QAM 04/15/22 05/13/22 History (Aspirin Childrens) atorvastatin 40 mg tablet 40 mg PO DAILY 04/15/22 05/13/22 History insulin aspart U-100 100 unit/mL 1 sliding scale dose subcut 04/15/22 05/13/22 History (3 mL) subcutaneous pen (Novolog USEASDIRECTD FlexPen U-100 Insulin aspart) insulin glargine 100 unit/mL (3 14 unit subcut HS 04/15/22 05/13/22 History mL) subcutaneous pen (Lantus Solostar U-100 Insulin) metformin 500 mg tablet,extended 500 mg PO BID 04/15/22 05/13/22 History release 24 hr nadolol 40 mg tablet 40 mg PO QAM 04/15/22 05/13/22 History ondansetron HCl 4 mg tablet 4 mg PO Q6H PRN Nausea 04/15/22 05/13/22 History venlafaxine 75 mg tablet,extended 75 mg PO QAM 04/15/22 05/13/22 History release 24 hr fenofibrate nanocrystallized 145 145 mg PO QAM 05/13/22 05/13/22 History mg tablet omeprazole 20 mg capsule,delayed 20 mg PO QAM 05/13/22 05/13/22 History release Patient History Medical History Anxiety Diabetes mellitus, type 2 History of COVID-19 beginning of 2021--mild symptoms, no symptoms now Hyperlipidemia Hypertension History of - per cardio records 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--had Whipple procedure done Pancreatitis recent admission at [facility] for this POTS (postural orthostatic tachycardia syndrome) Per cardio records Tachycardia Hx of--reason for Nadolol, per pt HR runs 85-99 with med "Inappropriate sinus tachycardia" per cardio records Transient ischemic attack (TIA) 2014--unknown cause--no deficits, on 81mg aspirin daily Surgical History History of abdominoplasty History of section History of colonoscopy History of esophagogastroduodenoscopy (EGD) History of hysterectomy History of Whipple procedure (~2013) with gallbladder removal History of wisdom tooth extraction Family History Other No family history of adverse response to anesthesia Social History Smoking Status: Never smoker Second Hand Exposure: No; Do You Dip or Chew Tobacco: No; Tobacco Cessation Education Requested by Patient: No Hx Alcohol Use: Yes Alcohol type: beer Hx Substance Use: No Preferred Language: Occitan Communication Ability: Effective Roller Helper Required: No Beliefs That Will Affect Care: None Current Living Situation: Spouse Other Information That Helps Us Care for You: No Feels Safe at Home: Yes Safety Concerns: Feels Safe At This Time Assistive Devices: None Review of Systems Review of Systems: All systems reviewed & are unremarkable except as noted in HPI & below Physical Exam Constitutional: WD/WN, vitals as above Eyes: EOM intact bilaterally Neck: normal appearance Respiratory: normal respiratory effort, lungs clear to auscultation Cardiovascular: Rate/Rhythm: regular rate and regular rhythm Heart Sounds: no gallop and no murmur Gastrointestinal (Abdomen): Inspection/Auscultation: + abdomen distended and normal bowel sounds Percussion/Palpation: + abdomen tender and abdomen soft; no guarding and abdomen not rigid Musculoskeletal: Extremities: no cyanosis no lower extremity edema Skin: no rashes, warm and dry Neurologic: moves all extremities Psychiatric: A+Ox3, euthymic affect Results & Data Vital Signs (Past 12 Hours) Vital Signs Temp Pulse Resp BP Pulse Ox O2 Del Method 05/14/22 10:31 Room Air 05/14/22 07:28 36.7 C 59 L 16 107/68 99 Room Air Diagnostic Findings Laboratory Results WBC 7.95 K/ul (4.8-10.8) 05/14/22 08:07 RBC 3.51 M/uL (4.20-5.40) L 05/14/22 08:07 Hgb 11.1 g/dl (12.0-16.0) L 05/14/22 08:07 Hct 34.2 % (37.0-47.0) L 05/14/22 08:07 MCV 97.4 fL (80.0-100.0) 05/14/22 08:07 MCH 31.6 pg (25.0-34.0) 05/14/22 08:07 MCHC 32.5 g/dL (32.0-36.0) 05/14/22 08:07 RDW Std Deviation 44.4 fL (36.4-46.3) 05/14/22 08:07 RDW Coeff of [place] 12.5 % (11.5-14.5) 05/14/22 08:07 Plt Count 235 K/uL (130-400) 05/14/22 08:07 MPV 10.1 fL (9.4-12.4) 05/14/22 08:07 Immature Gran % (Auto) 0.2 % 05/13/22 14:02 Neut % (Auto) 72.7 % 05/13/22 14:02 Lymph % (Auto) 17.4 % 05/13/22 14:02 Floyd % (Auto) 8.8 % 05/13/22 14:02 Eos % (Auto) 0.6 % 05/13/22 14:02 Baso % (Auto) 0.3 % 05/13/22 14:02 Neut # (Auto) 6.61 K/uL (1.40-6.50) H 05/13/22 14:02 Lymph # (Auto) 1.58 K/uL (1.2-3.4) 05/13/22 14:02 [place] # (Auto) 0.80 K/uL (0.11-0.59) H 05/13/22 14:02 Eos # (Auto) 0.05 K/uL (0-0.50) 05/13/22 14:02 Baso # (Auto) 0.03 K/uL (0-0.2) 05/13/22 14:02 Immature Gran # (Auto) 0.02 K/uL (0.01-0.20) 05/13/22 14:02 Sodium 137 mmol/L (136-145) 05/14/22 08:07 Potassium 3.6 mmol/L (3.5-5.1) 05/14/22 08:07 Chloride 105 mmol/L (98-107) 05/14/22 08:07 Carbon Dioxide 27 mmol/L (21-32) 05/14/22 08:07 Anion Gap 5 (3-11) 05/14/22 08:07 BUN 10 mg/dl (6-23) 05/14/22 08:07 Creatinine 0.76 mg/dl (0.6-1.2) 05/14/22 08:07 Est Cr Clr Drug Dosing 104.6 ml/min 05/14/22 08:07 Est GFR ( Amer) 110.6 ml/min 05/14/22 08:07 Est GFR (Non-Af Amer) 95.4 ml/min 05/14/22 08:07 BUN/Creatinine Ratio 13.2 (10-20) 05/14/22 08:07 Glucose 124 mg/dl (70-99(Fasting)) H 05/14/22 08:07 POC Glucose 122 mg/dl (70-99) H 05/14/22 11:44 Calcium 8.5 mg/dl (8.5-10.1) 05/14/22 08:07 Phosphorus 3.1 mg/dl (2.5-4.9) 05/13/22 14:02 Magnesium 1.8 mg/dl (1.7-2.4) 05/13/22 14:02 Total Bilirubin 0.5 mg/dl (0.2-1.0) 05/14/22 08:07 Direct Bilirubin 0.1 mg/dl (0-0.2) 05/14/22 08:07 AST 15 U/L (13-39) 05/14/22 08:07 ALT 13 U/L (7-52) 05/14/22 08:07 Alkaline Phosphatase 61 U/L (34-104) 05/14/22 08:07 Troponin I High Sens 2.6 pg/ml (0-14) 05/13/22 14:02 Total Protein 5.9 gm/dl (6.0-8.3) L D 05/14/22 08:07 Albumin 3.5 gm/dl (3.4-5.0) 05/14/22 08:07 Globulin 2.4 gm/dl (2.5-4.0) L 05/14/22 08:07 Albumin/Globulin Ratio 1.5 (0.9-2) 05/14/22 08:07 Lipase 2388 U/L (11-82) H 05/14/22 08:07 Urine Color Yellow 05/13/22 18:01 Urine Appearance Clear (Clear) 05/13/22 18:01 Urine pH 7.0 (4.5-7.5) 05/13/22 18:01 Ur Specific [place] > 1.045 (1.000-1.030) H 05/13/22 18:01 Urine Protein Negative (Negative) 05/13/22 18:01 Urine Glucose (UA) Negative (Negative) 05/13/22 18:01 Urine Ketones Negative (Negative) 05/13/22 18:01 Urine Blood Negative (Negative) 05/13/22 18:01 Urine Nitrite Negative (Negative) 05/13/22 18:01 Urine Bilirubin Negative (Negative) 05/13/22 18:01 Urine Urobilinogen Negative (Negative) 05/13/22 18:01 Ur Leukocyte Esterase Negative (Negative) 05/13/22 18:01 Urine WBC (Auto) 5-10 /hpf (0-5) H 05/13/22 14:02 Urine RBC (Auto) 0-4 /hpf (0-4) 05/13/22 14:02 U Hyaline Cast (Auto) 5-10 /lpf (0-5) H 05/13/22 14:02 U Epithel Cells (Auto) >30 /lpf (0-5) H 05/13/22 14:02 Urine Bacteria (Auto) 2+ (Negative) H 05/13/22 14:02 Urine Yeast Not Reportable 05/13/22 14:02 Urine Test Negative (Negative) 05/13/22 14:02 Urine Opiates Screen Pos (Neg) H 05/14/22 01:39 Ur Methadone, Qual Neg (Neg) 05/14/22 01:39 Urine Barbiturates Neg (Neg) 05/14/22 01:39 Ur Phencyclidine (PCP) Neg (Neg) 05/14/22 01:39 U Amphetamin/Meth Scrn Neg (Neg) 05/14/22 01:39 MDMA (Ecstasy) Screen Neg (Neg) 05/14/22 01:39 U Benzodiazepines Scrn Neg (Neg) 05/14/22 01:39 Ur Cocaine Metabolite Neg (Neg) 05/14/22 01:39 U Marijuana (THC) Screen Neg (Neg) 05/14/22 01:39 SARS-CoV-2, RNA, NAAT NEGATIVE (NEGATIVE) 05/13/22 15:50 Impressions Abdomen/Pelvis CT 05/13/22 16:43 CT SCAN OF THE ABDOMEN AND PELVIS WITH IV CONTRAST CLINICAL HISTORY: Generalized abdominal pain. COMPARISON STUDY: No priors. TECHNIQUE: Following the IV administration of 86 cc of Optiray 350, CT scan of the abdomen and pelvis is performed from the lung bases to the proximal femora. Images are reviewed in the axial, sagittal, and coronal planes. IV contrast was administered without complication. A dose lowering technique was utilized adhering to the principles of ALARA. CT DOSE: 569.34 mGy.cm FINDINGS: Lung bases: The heart is normal in size and without pericardial effusion. There is a large calcified granuloma in the right lower lobe. The lung bases are otherwise clear noting dependent atelectasis. Liver: The contrast-enhanced liver is top normal in size and demonstrates diffus juan jose diminished attenuation indicating steatosis. There is no intrahepatic biliary ductal dilatation. The hepatic veins and portal veins are patent. Gallbladder: Surgically absent noting clips in the gallbladder fossa. Spleen: Normal in size and attenuation. Pancreas: The pancreatic head is surgically absent suggesting previous Whipple procedure. There is peripancreatic inflammation and fluid consistent with acute pancreatitis. The gland enhances throughout and the duct is normal in caliber. No organized peripancreatic fluid collection is seen. The splenic vein is patent. Adrenal glands: Unremarkable. Kidneys: The contrast enhanced kidneys are normal in size and without hydronephrosis. The kidneys enhance symmetrically. Abdominal vasculature: The abdominal aorta is normal in course and caliber noting scattered foci of atherosclerotic calcification. Bowel: There is postoperative change from distal gastrectomy and gastrojejunostomy. There is moderate colonic fecal retention. No bowel obstruction is identified. The appendix is well-visualized and normal. Peritoneum: There is no intraperitoneal free air or abdominal ascites. There is a fat-containing umbilical hernia. Lymphadenopathy: None. Pelvic viscera: The bladder is normal as visualized. The uterus is surgically absent. No adnexal lesion is seen. Skeletal structures: No lytic or blastic lesions are seen. There is moderate degenerative disc space narrowing at L5-S1. IMPRESSION: 1. Findings suggest previous Whipple procedure. Correlate with the operative history. 2. There is evidence of acute pancreatitis. 3. The pancreas enhances throughout and there is no organized peripancreatic fluid collection. 4. Hepatic steatosis. 5. Additional findings as above. ACT 112: Negative or not required by law. Electronically signed by: Gerardo Cordoba M.D. 05/13/2022 5:31 PM PG Care Time/CCT Total # of Minutes Spent Total Time Spent with Patient: Total time spent is greater than 50% in coordination of care (as documented) at patient's floor/unit and/or counseling patient: Coding Level of Care Code 83445 IN/OBS CONSULT LVL 3,45M Diagnoses Pancreatitis K85.90 Left upper quadrant abdominal pain R10.12
--- NOTE | 2022-05-14 11:54 | Hospitalist Progress Note ---
Date of Service May 14, 2022 Assessment & Plan (1) Pancreatitis: (2) Left upper quadrant abdominal pain: Plan: 46-year-old female with PMH benign pancreatic NET s/p Whipple in 2013, post pancreatectomy diabetes, TIA, depression presented to ER with complaint of epigastric, LUQ abdominal pain, nausea that started today. H/O pancreatitis in April 2022 thought secondary to ETOH. Denies fever/chills. History EUS on 04/17/2022: Limited exam due to Whipple's anatomy, fatty liver, visualized part of the body and tail of the remnant pancreas were within normal 04/16/22 lipid panel: Total cholesterol 203, LDL: 1006, HDL: 42, triglycerides 275. In ER afebrile, vitals stable. No leukocytosis. Lipase: 4789. LFT's WNL CT Abd/pelvis: Findings suggest previous Whipple procedure. There is evidence of acute pancreatitis. The pancreas enhances throughout and there is no organized peripancreatic fluid collection. Hepatic steatosis. In ER given morphine, 1L NSS Continue NPO Continue LR at 250ml/hr Continue IV dilaudid and tylenol for pain control GI evaluation noted Continue atorvastatin, fenofibrate (3) Abnormal urinalysis: Plan: UA: 1+ leuk esterase, >30 epithelial, 2+ bacteria. This was NOT clean catch. Patient without urinary symptoms Obtained new clean catch UA and is WNL (4) Diabetes mellitus, type 2: Plan: Diabetes s/p pancreatectomy A1c: 7.7 on 04/16/22 Hold home basal bolus insulin, metformin Basal bolus insulin per protocol (5) Hypertension: Plan: Continue nadolol (6) Hyperlipidemia: Plan: Continue atorvastatin, fenofibrate (7) Transient ischemic attack (TIA): Plan: Continue aspirin, atorvastatin (8) Depression: (9) Anxiety: Plan: Continue venlafaxine DVT Prophylaxis Lovenox SQ Full code Follows with Luz Marina Perez PA-C for routine care I spent a total of 45 minutes reviewing notes, outpatient records, labs, medication, documenting and providing care for this patient excluding time spent in the performance of separately billed services. Admission and Anticipated Discharge Date Admission Date: May 13, 2022 Subjective Patient seen and examined Reports nausea. Had an episode of vomiting this morning Reports severe abd pain Reports some episode of bloating sensation in the past with eating Denied chest pain, cough, shortness of breath, Denied dysuria, freq, urgency Denied fever, chills Physical Exam Constitutional: + well hydrated; no acute distress Eyes: PERRL, conjunctivae normal, anicteric sclerae ENMT: external ear and nose normal, oropharynx normal Respiratory: normal respiratory effort, lungs clear to auscultation Cardiovascular: Rate/Rhythm: regular rate and regular rhythm S1 S2 Gastrointestinal (Abdomen): Inspection/Auscultation: abdomen normal to inspection and normal bowel sounds; abdomen not distended Percussion/Palpation: + abdomen tender and abdomen soft; no guarding and abdomen not rigid Musculoskeletal: no cyanosis or clubbing, extremities motor strength 5/5 Neurologic: PERRL, EOMI, accommodation nl, no face palsy, no dysarthria Psychiatric: A+Ox3, euthymic affect Results & Data Results & Data Vital Signs (Past 12 Hours) Vital Signs Temp Pulse Resp BP Pulse Ox O2 Del Method 05/14/22 10:31 Room Air 05/14/22 07:28 36.7 C 59 L 16 107/68 99 Room Air Laboratory Results Abnormal lab results 05/13/22 05/13/22 05/14/22 Range/Units 18:01 21:04 01:39 RBC (4.20-5.40) M/uL Hgb (12.0-16.0) g/dl Hct (37.0-47.0) % Glucose (70-99(Fasting)) mg/dl POC Glucose 109 H (70-99) mg/dl Total Protein (6.0-8.3) gm/dl Globulin (2.5-4.0) gm/dl Lipase (11-82) U/L Ur Specific [place] > 1.045 H (1.000-1.030) Urine Opiates Screen Pos H (Neg) 05/14/22 05/14/22 05/14/22 Range/Units 07:57 08:07 08:07 RBC 3.51 L (4.20-5.40) M/uL Hgb 11.1 L (12.0-16.0) g/dl Hct 34.2 L (37.0-47.0) % Glucose 124 H (70-99(Fasting)) mg/dl POC Glucose 119 H (70-99) mg/dl Total Protein 5.9 L D (6.0-8.3) gm/dl Globulin 2.4 L (2.5-4.0) gm/dl Lipase 2388 H (11-82) U/L Ur Specific [place] (1.000-1.030) Urine Opiates Screen (Neg) 05/14/22 Range/Units 11:44 RBC (4.20-5.40) M/uL Hgb (12.0-16.0) g/dl Hct (37.0-47.0) % Glucose (70-99(Fasting)) mg/dl POC Glucose 122 H (70-99) mg/dl Total Protein (6.0-8.3) gm/dl Globulin (2.5-4.0) gm/dl Lipase (11-82) U/L Ur Specific [place] (1.000-1.030) Urine Opiates Screen (Neg)
[2022-05-14] MEDS ORDERED: Nursing to Pharmacy Communication SCH (16:00)
[2022-05-14] MEDS: ENOXAPARIN INJ 40 MG/0.4 ML SYR SQ SCH (20:10)
[2022-05-15] MEDS: LACTATED RINGER'S 1,000 ML IV SCH ×6 (00:18→21:13)
[2022-05-15] MEDS: INSULIN ASPART PER UNIT CHARGE SC SCH ×5 (00:19→22:31)
[2022-05-15] MEDS: ATORVASTATIN 40 MG TAB PO SCH (08:43)
[2022-05-15] MEDS: ASPIRIN 81 MG CHEW PO SCH (08:44)
[2022-05-15] MEDS: FAMOTIDINE 20 MG in SYRINGE 3 ML IV SCH ×2 (08:44→21:12)
[2022-05-15] MEDS: FENOFIBRATE NANOCRYSTALLIZED 145 MG TABLET PO SCH (08:44)
[2022-05-15] MEDS: VENLAFAXINE HCL XR 75 MG CAPXR PO SCH (08:44)
[2022-05-15] MEDS: nadoloL 40 MG TAB PO SCH (08:44)
[2022-05-15] MEDS: LANTUS PER UNIT CHARGE SQ SCH ×2 (08:45→22:31)
--- NOTE | 2022-05-15 09:36 | Gastroenterology Progress Note ---
Date of Service May 15, 2022 Assessment & Plan (1) Pancreatitis: (2) Left upper quadrant abdominal pain: Plan Patient is a 46 y.o. female with a history of NET s/p Whipple 2013 admitted for recurrent acute pancreatitis, idiopathic at this time. -Clear liquid diet. Advance as tolerated. -IV fluids at 250 ml/hr. -Supportive care with IV analgesics/antiemetics PRN. -Consider adding Creon as outpatient for likely EPI. -Trend lipase. -Rest per primary team. Admission and Anticipated Discharge Date Admission Date: May 13, 2022 Subjective Patient reports improved abdominal pain. Only pain with deep inspiration or movement. Rates this pain as 3/10 in intensity. No nausea or vomiting. Remains NPO this morning. Labs pending. Review of Systems Constitutional: no fever and no chills Gastrointestinal: as per Subjective / HPI Physical Exam Constitutional: WD/WN, vitals as above Respiratory: normal respiratory effort, lungs clear to auscultation Cardiovascular: Rate/Rhythm: regular rate and regular rhythm Gastrointestinal (Abdomen): Inspection/Auscultation: normal bowel sounds Percussion/Palpation: + abdomen tender (epigastric region) and abdomen soft; no guarding and abdomen not rigid Results & Data Results & Data Vital Signs (Past 12 Hours) Vital Signs Temp Pulse Resp BP BP Pulse Ox O2 Del Method 05/15/22 07:13 37.1 C 88 18 115/70 98 Room Air 05/14/22 22:07 37.2 C 79 18 111/67 98 Room Air PG Care Time/CCT Total # of Minutes Spent Total Time Spent with Patient: Total time spent is greater than 50% in coordination of care (as documented) at patient's floor/unit and/or counseling patient: Coding Level of Care Code 37751 SUB INP/OBS CARE 3/50MIN Diagnoses Pancreatitis K85.90 Left upper quadrant abdominal pain R10.12
[2022-05-15] MEDS ORDERED: Nursing to Pharmacy Communication SCH (09:45)
[2022-05-15 10:15] LABS: Hematocrit (blood only) 33.1 % (37.0-47.0); Hemoglobin 11.4 g/dl (12.0-16.0); Mean Corpuscular Hemoglobin 32.2 pg (25.0-34.0); Mean Corpuscular Hgb Conc 34.4 g/dL (32.0-36.0); Mean Corpuscular Volume 93.5 fL (80.0-100.0); Mean Platelet Volume 10.5 fL (9.4-12.4); Platelet Count 236 K/uL (130-400); RDW Coefficient of Variation 11.9 % (11.5-14.5); Red Blood Count 3.54 M/uL (4.20-5.40); White Blood Count 6.17 K/ul (4.8-10.8)
[2022-05-15 10:33] LABS: BUN Creatinine Ratio 6.8 (10-20); Calcium 8.8 mg/dl (8.5-10.1); Creatinine Clr Calc Pharmacy 107.5 ml/min; Est GFR (African American) 114.2 ml/min; Est GFR (Non-African American) 98.5 ml/min
[2022-05-15] MEDS: PANTOprazole 40 MG in SYRINGE 0 ML IV SCH (11:14)
[2022-05-15 11:47] LABS: Appearance Urine Cloudy (Clear); Bacteria Urine Automated 2+ (Negative); Bilirubin Urine Negative (Negative); Blood Urine Negative (Negative); Color Urine Yellow; Epithelial Cell Urine Auto >30 /lpf (0-5); Glucose Urine UA Negative (Negative); Ketones Urine 1+ (Negative); Leukocyte Esterase Urine 2+ (Negative); Nitrite Urine Negative (Negative); Protein Urine Negative (Negative); RBC Urine Automated 0-4 /hpf (0-4); Specific Gravity Urine 1.007 (1.000-1.030); Urobilinogen Urine Negative (Negative)
[2022-05-15] MEDS: ONDANSETRON INJ 2 MG/ML 2 ML VIAL IV PRN ×2 (12:59→18:22)
[2022-05-15] MEDS: HYDROmorphone INJ 0.5 MG/0.5 ML SYR IV PRN ×2 (13:04→23:42)
--- NOTE | 2022-05-15 13:19 | Hospitalist Progress Note ---
Date of Service May 15, 2022 Assessment & Plan (1) Pancreatitis: (2) Left upper quadrant abdominal pain: Plan: 46-year-old female with PMH benign pancreatic NET s/p Whipple in 2013, post pancreatectomy diabetes, TIA, depression presented to ER with complaint of epigastric, LUQ abdominal pain, nausea that started today. H/O pancreatitis in April 2022 thought secondary to ETOH. Denies fever/chills. History EUS on 04/17/2022: Limited exam due to Whipple's anatomy, fatty liver, visualized part of the body and tail of the remnant pancreas were within normal 04/16/22 lipid panel: Total cholesterol 203, LDL: 1006, HDL: 42, triglycerides 275. In ER afebrile, vitals stable. No leukocytosis. Lipase: 4789. LFT's WNL CT Abd/pelvis: Findings suggest previous Whipple procedure. There is evidence of acute pancreatitis. The pancreas enhances throughout and there is no organized peripancreatic fluid collection. Hepatic steatosis. In ER given morphine, 1L NSS Will stop the clear liquid diet for now Will continue NPO for the rest of the day and reassess in the morning Continue IVF LR Continue IV dilaudid and tylenol for pain control GI evaluation noted Continue atorvastatin, fenofibrate (3) Abnormal urinalysis: Plan: Since patient has dysuria Repeat UA today noted 2+ leuk esterase, 10-30 WBC. Will start empirical ceftriaxone for now for UTI Follow up urine culture (4) Diabetes mellitus, type 2: Plan: Diabetes s/p pancreatectomy A1c: 7.7 on 04/16/22 Hold home metformin Continue insulin per protocol (5) Hypertension: Plan: Continue nadolol (6) Hyperlipidemia: Plan: Continue atorvastatin, fenofibrate (7) Transient ischemic attack (TIA): Plan: Continue aspirin, atorvastatin (8) Depression: (9) Anxiety: Plan: Continue venlafaxine DVT Prophylaxis Lovenox SQ Full code Follows with Luz Marina Perez PA-C I spent a total of 40 minutes reviewing notes, outpatient records, labs, medication, documenting and providing care for this patient excluding time spent in the performance of separately billed services. Admission and Anticipated Discharge Date Admission Date: May 13, 2022 Subjective Patient seen and examined Reported doing very well this morning until she started the clear liquid diet. Reported pain worsened with diet associated with bloating and nausea. Denied chest pain, cough, shortness of breath, Denied fever, chills Reported she developed dysuria overnight. Denied urgency, hematuria Physical Exam Constitutional: + well hydrated; no acute distress Eyes: PERRL, conjunctivae normal, anicteric sclerae ENMT: external ear and nose normal, oropharynx normal Respiratory: normal respiratory effort, lungs clear to auscultation Cardiovascular: Rate/Rhythm: regular rate and regular rhythm S1 S2 Gastrointestinal (Abdomen): Inspection/Auscultation: abdomen normal to insp ection and normal bowel sounds; abdomen not distended Percussion/Palpation: + abdomen tender and abdomen soft; no guarding and abdomen not rigid Musculoskeletal: no cyanosis or clubbing, extremities motor strength 5/5 Neurologic: PERRL, EOMI, accommodation nl, no face palsy, no dysarthria Psychiatric: A+Ox3, euthymic affect Results & Data Results & Data Vital Signs (Past 12 Hours) Vital Signs Temp Pulse Resp BP Pulse Ox O2 Del Method 05/15/22 09:00 Room Air 05/15/22 07:13 37.1 C 88 18 115/70 98 Room Air Laboratory Results Abnormal lab results 05/14/22 05/15/22 05/15/22 Range/Units 16:58 09:15 09:15 RBC 3.54 L (4.20-5.40) M/uL Hgb 11.4 L (12.0-16.0) g/dl Hct 33.1 L (37.0-47.0) % BUN 5 L (6-23) mg/dl BUN/Creatinine Ratio 6.8 L (10-20) Glucose 111 H (70-99(Fasting)) mg/dl POC Glucose 102 H (70-99) mg/dl Urine Appearance (Clear) Urine pH (4.5-7.5) Urine Ketones (Negative) Ur Leukocyte Esterase (Negative) Urine WBC (Auto) (0-5) /hpf U Epithel Cells (Auto) (0-5) /lpf Urine Bacteria (Auto) (Negative) 05/15/22 05/15/22 Range/Units 12:08 Unknown RBC (4.20-5.40) M/uL Hgb (12.0-16.0) g/dl Hct (37.0-47.0) % BUN (6-23) mg/dl BUN/Creatinine Ratio (10-20) Glucose (70-99(Fasting)) mg/dl POC Glucose 134 H (70-99) mg/dl Urine Appearance Cloudy A (Clear) Urine pH 8.0 H (4.5-7.5) Urine Ketones 1+ H (Negative) Ur Leukocyte Esterase 2+ H (Negative) Urine WBC (Auto) 10-30 H (0-5) /hpf U Epithel Cells (Auto) >30 H (0-5) /lpf Urine Bacteria (Auto) 2+ H (Negative)
[2022-05-15] MEDS: cefTRIAXone SODIUM 2,000 MG in DEXTROSE 5% 50 ML IV SCH (14:02)
[2022-05-15] MEDS: ENOXAPARIN INJ 40 MG/0.4 ML SYR SQ SCH (21:12)
--- NOTE | 2022-05-15 23:40 | Electrocardiogram Report ---
Test Reason : Blood Pressure : / mmHG Vent. Rate : 071 BPM Atrial Rate : 071 BPM P-R Int : 146 ms QRS Dur : 080 ms QT Int : 408 ms P-R-T Axes : 021 024 026 degrees QTc Int : 443 ms Normal sinus rhythm Low voltage QRS Borderline ECG No previous ECGs available Confirmed by Kenroy Glaser ([id number] on 05/15/2022 11:40:44 PM Referred By: Confirmed By:Kenroy Glaser
[2022-05-16] MEDS: LACTATED RINGER'S 1,000 ML IV SCH ×6 (01:20→20:05)
[2022-05-16] MEDS ORDERED: Nursing to Pharmacy Communication SCH ×2 (05:30→19:15)
[2022-05-16] MEDS: INSULIN ASPART PER UNIT CHARGE SC SCH ×4 (06:30→20:05)
[2022-05-16 07:07] LABS: Hemoglobin 10.8 g/dl (12.0-16.0); Mean Corpuscular Hgb Conc 33.8 g/dL (32.0-36.0); Mean Corpuscular Volume 94.7 fL (80.0-100.0); Mean Platelet Volume 10.3 fL (9.4-12.4); Platelet Count 232 K/uL (130-400); RDW Coefficient of Variation 11.9 % (11.5-14.5); RDW Standard Deviation 40.6 fL (36.4-46.3); Red Blood Count 3.38 M/uL (4.20-5.40); White Blood Count 5.29 K/ul (4.8-10.8)
[2022-05-16 07:34] LABS: BUN Creatinine Ratio 6.5 (10-20); Calcium 8.4 mg/dl (8.5-10.1); Creatinine Clr Calc Pharmacy 103.3 ml/min; Est GFR (African American) 108.8 ml/min; Est GFR (Non-African American) 93.9 ml/min; Magnesium 1.4 mg/dl (1.7-2.4); Phosphorus 3.6 mg/dl (2.5-4.9); Potassium 3.7 mmol/L (3.5-5.1)
[2022-05-16] MEDS: LANTUS PER UNIT CHARGE SQ SCH ×2 (08:23→20:04)
[2022-05-16] MEDS: MAGNESIUM SULFATE / D5W 1 GM/100 ML BAG IV SCH ×2 (09:27→12:17)
[2022-05-16] MEDS: FENOFIBRATE NANOCRYSTALLIZED 145 MG TABLET PO SCH (09:32)
[2022-05-16] MEDS: VENLAFAXINE HCL XR 75 MG CAPXR PO SCH (09:32)
[2022-05-16] MEDS: nadoloL 40 MG TAB PO SCH (09:32)
[2022-05-16] MEDS: ATORVASTATIN 40 MG TAB PO SCH (09:32)
[2022-05-16] MEDS: HYDROmorphone INJ 0.5 MG/0.5 ML SYR IV PRN ×2 (09:36→23:33)
[2022-05-16] MEDS: FAMOTIDINE 20 MG in SYRINGE 3 ML IV SCH ×2 (09:36→20:06)
[2022-05-16] MEDS: ASPIRIN 81 MG CHEW PO SCH (09:36)
[2022-05-16] MEDS: PANTOprazole 40 MG in SYRINGE 0 ML IV SCH (11:14)
[2022-05-16] MEDS: ONDANSETRON INJ 2 MG/ML 2 ML VIAL IV PRN ×2 (12:20→19:20)
[2022-05-16 12:52] LABS: Codeine Urine NEGATIVE ng/mL (<50); Hydrocodone Urine NEGATIVE ng/mL (<50); Hydromor Urine 471 ng/mL (<50); Morphine Urine 3390 ng/mL (<50); Norhydrocodone Conf Ur NEGATIVE ng/mL (<50); Noroxycodone Urine NEGATIVE ng/mL (<50); Oxycodone Urine NEGATIVE ng/mL (<50); Oxymorph Urine NEGATIVE ng/mL (<50)
--- NOTE | 2022-05-16 13:07 | Hospitalist Progress Note ---
Date of Service May 16, 2022 Assessment & Plan (1) Pancreatitis: (2) Left upper quadrant abdominal pain: Plan: 46-year-old female with PMH benign pancreatic NET s/p Whipple in 2013, post pancreatectomy diabetes, TIA, depression presented to ER with complaint of epigastric, LUQ abdominal pain, nausea that started today. H/O pancreatitis in April 2022 thought secondary to ETOH. Denies fever/chills. History EUS on 04/17/2022: Limited exam due to Whipple's anatomy, fatty liver, visualized part of the body and tail of the remnant pancreas were within normal 04/16/22 lipid panel: Total cholesterol 203, LDL: 1006, HDL: 42, triglycerides 275. In ER afebrile, vitals stable. No leukocytosis. Lipase: 4789. LFT's WNL CT Abd/pelvis: Findings suggest previous Whipple procedure. There is evidence of acute pancreatitis. The pancreas enhances throughout and there is no organized peripancreatic fluid collection. Hepatic steatosis. In ER given morphine, 1L NSS Patient reported she may be able to advance diet later today Has been tolerating sips of water. Will reeval and may advance to clear liquid first later Continue IVF LR, reduce to 200/h Continue IV dilaudid prn and tylenol for pain control GI on board Continue atorvastatin, fenofibrate Replete hypomagnesemia (3) Abnormal urinalysis: Plan: Since patient has dysuria Repeat UA today noted 2+ leuk esterase, 10-30 WBC. Continue ceftriaxone for now for UTI Follow up urine culture (4) Diabetes mellitus, type 2: Plan: Diabetes s/p pancreatectomy A1c: 7.7 on 04/16/22 Hold home metformin Continue insulin per protocol (5) Hypertension: Plan: Continue nadolol (6) Hyperlipidemia: Plan: Continue atorvastatin, fenofibrate (7) Transient ischemic attack (TIA): Plan: Continue aspirin, atorvastatin (8) Depression: (9) Anxiety: Plan: Continue venlafaxine DVT Prophylaxis Lovenox SQ Full code Follows with Luz Marina Perez PA-C I spent a total of 35 minutes reviewing notes, outpatient records, labs, medication, documenting and providing care for this patient excluding time spent in the performance of separately billed services. Admission and Anticipated Discharge Date Admission Date: May 13, 2022 Subjective Patient seen and examined Reported nausea earlier today Still has abd pain, moderate but currently improving since she just got some pain meds Reported pain worsened with diet associated with bloating and nausea. Denied chest pain, cough, shortness of breath, Denied fever, chills Reported no dysuria this morning. Denied urgency, hematuria Physical Exam Constitutional: + well hydrated; no acute distress Eyes: PERRL, conjunctivae normal, anicteric sclerae ENMT: external ear and nose normal, oropharynx normal Respiratory: normal respiratory effort, lungs clear to auscultation Cardiovascular: Rate/Rhythm: regular rate and regular rhythm S1 S2 Gastrointestinal (Abdomen): Inspection/Auscultation: abdomen normal to inspection and normal bowel sounds; abdomen not distended Percussion/Palpation: + abdomen tender and abdomen soft; no guarding and abdomen not rigid Musculoskeletal: no cyanosis or clubbing, extremities motor strength 5/5 Neurologic: PERRL, EOMI, accommodation nl, no face palsy, no dysarthria Psychiatric: A+Ox3, euthymic affect Results & Data Results & Data Vital Signs (Past 12 Hours) Vital Signs Temp Pulse Resp BP Pulse Ox O2 Del Method 05/16/22 07:08 36.9 C 76 18 126/71 97 Room Air Laboratory Results Abnormal lab results 05/14/22 05/16/22 05/16/22 Range/Units 01:39 06:13 06:13 RBC 3.38 L (4.20-5.40) M/uL Hgb 10.8 L (12.0-16.0) g/dl Hct 32.0 L (37.0-47.0) % BUN 5 L (6-23) mg/dl BUN/Creatinine Ratio 6.5 L (10-20) Glucose 105 H (70-99(Fasting)) mg/dl POC Glucose (70-99) mg/dl Calcium 8.4 L (8.5-10.1) mg/dl Magnesium 1.4 L (1.7-2.4) mg/dl Ur Morphine (GC/MS) 3390 H (<50) ng/mL Ur Hydromorphone (GC/MS) 471 H (<50) ng/mL 05/16/22 05/16/22 Range/Units 06:25 12:15 RBC (4.20-5.40) M/uL Hgb (12.0-16.0) g/dl Hct (37.0-47.0) % BUN (6-23) mg/dl BUN/Creatinine Ratio (10-20) Glucose (70-99(Fasting)) mg/dl POC Glucose 101 H 115 H (70-99) mg/dl Calcium (8.5-10.1) mg/dl Magnesium (1.7-2.4) mg/dl Ur Morphine (GC/MS) (<50) ng/mL Ur Hydromorphone (GC/MS) (<50) ng/mL
[2022-05-16] MEDS: cefTRIAXone SODIUM 2,000 MG in DEXTROSE 5% 50 ML IV SCH (14:21)
[2022-05-16] MEDS: POLYETHYLENE (MIRALAX) 17 GM PACK PO PRN (19:25)
[2022-05-16] MEDS: ENOXAPARIN INJ 40 MG/0.4 ML SYR SQ SCH (20:05)
[2022-05-17] MEDS: LACTATED RINGER'S 1,000 ML IV SCH ×5 (01:12→23:02)
[2022-05-17 06:39] LABS: Hematocrit (blood only) 32.1 % (37.0-47.0); Hemoglobin 11.2 g/dl (12.0-16.0); Mean Corpuscular Hemoglobin 32.4 pg (25.0-34.0); Mean Corpuscular Hgb Conc 34.9 g/dL (32.0-36.0); Mean Corpuscular Volume 92.8 fL (80.0-100.0); Platelet Count 258 K/uL (130-400); RDW Coefficient of Variation 11.8 % (11.5-14.5); RDW Standard Deviation 39.7 fL (36.4-46.3); Red Blood Count 3.46 M/uL (4.20-5.40); White Blood Count 5.43 K/ul (4.8-10.8)
[2022-05-17 06:57] LABS: BUN Creatinine Ratio 5.6 (10-20); Calcium 8.7 mg/dl (8.5-10.1); Creatinine Clr Calc Pharmacy 110.4 ml/min; Est GFR (Non-African American) 101.9 ml/min; Magnesium 1.6 mg/dl (1.7-2.4); Phosphorus 3.5 mg/dl (2.5-4.9); Potassium 3.8 mmol/L (3.5-5.1)
[2022-05-17] MEDS: HYDROmorphone INJ 0.5 MG/0.5 ML SYR IV PRN ×2 (09:28→20:36)
[2022-05-17] MEDS: ATORVASTATIN 40 MG TAB PO SCH (09:32)
[2022-05-17] MEDS: VENLAFAXINE HCL XR 75 MG CAPXR PO SCH (09:32)
[2022-05-17] MEDS: nadoloL 40 MG TAB PO SCH (09:32)
[2022-05-17] MEDS: FENOFIBRATE NANOCRYSTALLIZED 145 MG TABLET PO SCH (09:32)
[2022-05-17] MEDS: INSULIN ASPART PER UNIT CHARGE SC SCH ×4 (09:35→21:22)
[2022-05-17] MEDS: LANTUS PER UNIT CHARGE SQ SCH ×2 (09:39→21:28)
[2022-05-17] MEDS: FAMOTIDINE 20 MG in SYRINGE 3 ML IV SCH ×2 (09:52→20:36)
[2022-05-17] MEDS: ASPIRIN 81 MG CHEW PO SCH (09:52)
[2022-05-17] MEDS: MAGNESIUM SULFATE / D5W 1 GM/100 ML BAG IV SCH ×2 (10:46→12:46)
--- NOTE | 2022-05-17 12:29 | Hospitalist Progress Note ---
Date of Service May 17, 2022 Assessment & Plan (1) Pancreatitis: (2) Left upper quadrant abdominal pain: Plan: 46-year-old female with PMH benign pancreatic NET s/p Whipple in 2013, post pancreatectomy diabetes, TIA, depression presented to ER with complaint of epigastric, LUQ abdominal pain, nausea that started today. H/O pancreatitis in April 2022 thought secondary to ETOH. Denies fever/chills. History EUS on 04/17/2022: Limited exam due to Whipple's anatomy, fatty liver, visualized part of the body and tail of the remnant pancreas were within normal 04/16/22 lipid panel: Total cholesterol 203, LDL: 1006, HDL: 42, triglycerides 275. In ER afebrile, vitals stable. No leukocytosis. Lipase: 4789. LFT's WNL CT Abd/pelvis: Findings suggest previous Whipple procedure. There is evidence of acute pancreatitis. The pancreas enhances throughout and there is no organized peripancreatic fluid collection. Hepatic steatosis. In ER given morphine, 1L NSS Continue full liquid diet today Continue IVF LR Continue IV dilaudid prn and tylenol for pain control GI on board Continue atorvastatin, fenofibrate Replete hypomagnesemia (3) Abnormal urinalysis: Plan: Since patient has dysuria Repeat UA today noted 2+ leuk esterase, 10-30 WBC. Continue ceftriaxone for now for UTI Urine culture noted gardnerella-like bacilli (4) Diabetes mellitus, type 2: Plan: Diabetes s/p pancreatectomy A1c: 7.7 on 04/16/22 Hold home metformin Continue insulin per protocol (5) Hypertension: Plan: Continue nadolol (6) Hyperlipidemia: Plan: Continue atorvastatin, fenofibrate (7) Transient ischemic attack (TIA): Plan: Continue aspirin, atorvastatin (8) Depression: (9) Anxiety: Plan: Continue venlafaxine DVT Prophylaxis Lovenox SQ Full code Follows with Luz Marina Perez PA-C at bedside updated I spent a total of 40 minutes reviewing notes, outpatient records, labs, medication, documenting and providing care for this patient excluding time spent in the performance of separately billed services. Admission and Anticipated Discharge Date Admission Date: May 13, 2022 Subjective Patient seen and examined Reported she has been tolerating full liquid yesterday However, stated this morning she had nausea and increased abd pain after eating earlier Pain is controlled now Denied chest pain, cough, shortness of breath, Denied fever, chills Reported no dysuria today. Denied urgency, hematuria Reported a brief palpitation earlier but denied chest pain or shortness of breath at the time Physical Exam Constitutional: + well hydrated; no acute distress Eyes: PERRL, conjunctivae normal, anicteric sclerae ENMT: external ear and nose normal, oropharynx normal Respiratory: normal respiratory effort, lungs clear to auscultation Cardiovascular: Rate/Rhythm: regular rate and regular rhythm S1 S2 Gastrointestinal (Abdomen): Inspection/Auscultation: abdomen normal to inspection and normal bowel sounds; abdomen not distended Percussion/Palpation: + abdomen tender and abdomen soft; no guarding and abdomen not rigid Musculoskeletal: no cyanosis or clubbing, extremities motor strength 5/5 Neurologic: PERRL, EOMI, accommodation nl, no face palsy, no dysarthria Psychiatric: A+Ox3, euthymic affect Results & Data Results & Data Vital Signs (Past 12 Hours) Vital Signs Temp Pulse Resp BP Pulse Ox O2 Del Method 05/17/22 07:35 36.7 C 72 18 122/72 95 Room Air Laboratory Results Abnormal lab results 05/16/22 05/17/22 05/17/22 Range/Units 19:55 06:23 06:23 RBC 3.46 L (4.20-5.40) M/uL Hgb 11.2 L (12.0-16.0) g/dl Hct 32.1 L (37.0-47.0) % BUN 4 L (6-23) mg/dl BUN/Creatinine Ratio 5.6 L (10-20) Glucose 121 H (70-99(Fasting)) mg/dl POC Glucose 172 H (70-99) mg/dl Magnesium 1.6 L (1.7-2.4) mg/dl 05/17/22 05/17/22 05/17/22 Range/Units 08:32 10:08 12:18 RBC (4.20-5.40) M/uL Hgb (12.0-16.0) g/dl Hct (37.0-47.0) % BUN (6-23) mg/dl BUN/Creatinine Ratio (10-20) Glucose (70-99(Fasting)) mg/dl POC Glucose 127 H 169 H 138 H (70-99) mg/dl Magnesium (1.7-2.4) mg/dl
[2022-05-17] MEDS: PANTOprazole 40 MG in SYRINGE 0 ML IV SCH (12:45)
[2022-05-17] MEDS: ONDANSETRON INJ 2 MG/ML 2 ML VIAL IV PRN (14:47)
[2022-05-17] MEDS: cefTRIAXone SODIUM 2,000 MG in DEXTROSE 5% 50 ML IV SCH (16:31)
[2022-05-17] MEDS: ENOXAPARIN INJ 40 MG/0.4 ML SYR SQ SCH (20:36)
[2022-05-18] MEDS: LACTATED RINGER'S 1,000 ML IV SCH ×5 (03:45→23:59)
[2022-05-18] MEDS: HYDROmorphone INJ 0.5 MG/0.5 ML SYR IV PRN ×2 (03:49→22:21)
[2022-05-18 07:21] LABS: Albumin Globulin Ratio 1.3 (0.9-2); Albumin Level 3.5 gm/dl (3.4-5.0); BUN Creatinine Ratio 3.7 (10-20); Bilirubin,Total 0.3 mg/dl (0.2-1.0); Calcium 8.9 mg/dl (8.5-10.1); Creatinine Clr Calc Pharmacy 98.2 ml/min; Est GFR (African American) 102.4 ml/min; Est GFR (Non-African American) 88.3 ml/min; Globulin 2.8 gm/dl (2.5-4.0); Magnesium 1.7 mg/dl (1.7-2.4); Phosphorus 3.9 mg/dl (2.5-4.9); Potassium 3.7 mmol/L (3.5-5.1); Total Protein 6.3 gm/dl (6.0-8.3)
[2022-05-18] MEDS: ONDANSETRON INJ 2 MG/ML 2 ML VIAL IV PRN (08:17)
[2022-05-18] MEDS: ACETAMINOPHEN 325 MG TAB PO PRN ×3 (08:23→20:28)
[2022-05-18] MEDS ORDERED: PROMETHAZINE HCL 12.5 MG in SODIUM CHLORIDE 0.9% 50 ML IV STA (08:44)
[2022-05-18] MEDS: INSULIN ASPART PER UNIT CHARGE SC SCH ×4 (09:47→21:11)
[2022-05-18] MEDS: ASPIRIN 81 MG CHEW PO SCH (09:48)
[2022-05-18] MEDS: ATORVASTATIN 40 MG TAB PO SCH (09:48)
[2022-05-18] MEDS: nadoloL 40 MG TAB PO SCH (09:49)
[2022-05-18] MEDS: VENLAFAXINE HCL XR 75 MG CAPXR PO SCH (09:49)
[2022-05-18] MEDS: FENOFIBRATE NANOCRYSTALLIZED 145 MG TABLET PO SCH (09:49)
[2022-05-18] MEDS: LANTUS PER UNIT CHARGE SQ SCH ×2 (10:14→21:11)
[2022-05-18] MEDS: FAMOTIDINE 20 MG in SYRINGE 3 ML IV SCH (10:14)
--- NOTE | 2022-05-18 10:50 | Electrocardiogram Report ---
Test Reason : Blood Pressure : / mmHG Vent. Rate : 064 BPM Atrial Rate : 064 BPM P-R Int : 152 ms QRS Dur : 084 ms QT Int : 474 ms P-R-T Axes : 019 006 -16 degrees QTc Int : 489 ms Normal sinus rhythm Low voltage QRS Abnormal ECG When compared with ECG of 13-MAY-2022 13:54, Inverted T waves have replaced nonspecific T wave abnormality in Inferior leads Confirmed by Drew Duong ([id number]) on 05/18/2022 10:50:20 AM Referred By: REFERRED SELF Confirmed By:Jamir Duong
[2022-05-18] MEDS: PANTOprazole 40 MG TAB PO SCH (11:22)
[2022-05-18] MEDS ORDERED: OPTIRAY 350 100ml IV ONE (12:57)
--- NOTE | 2022-05-18 12:58 | Hospitalist Progress Note ---
Date of Service May 18, 2022 Assessment & Plan (1) Pancreatitis: (2) Left upper quadrant abdominal pain: Plan: 46-year-old female with PMH benign pancreatic NET s/p Whipple in 2013, post pancreatectomy diabetes, TIA, depression presented to ER with complaint of epigastric, LUQ abdominal pain, nausea that started today. H/O pancreatitis in April 2022 thought secondary to ETOH. Denies fever/chills. History EUS on 04/17/2022: Limited exam due to Whipple's anatomy, fatty liver, visualized part of the body and tail of the remnant pancreas were within normal 04/16/22 lipid panel: Total cholesterol 203, LDL: 1006, HDL: 42, triglycerides 275. In ER afebrile, vitals stable. No leukocytosis. Lipase: 4789. LFT's WNL On admission, CT Abd/pelvis: Findings suggest previous Whipple procedure. There is evidence of acute pancreatitis. The pancreas enhances throughout and there is no organized peripancreatic fluid collection. Hepatic steatosis. Considering persistent symptoms and now vomiting today, I repeated CT abd/Pelvis which noted residual pancreatitis and decreased inflammation without fluid collection. Continue IVF LR for now Continue IV dilaudid prn and tylenol for pain control Advance to soft diet tonight if patient tolerates Continue atorvastatin, fenofibrate (3) Abnormal urinalysis: Plan: Since patient has dysuria Repeat UA today noted 2+ leuk esterase, 10-30 WBC. Continue ceftriaxone for now for UTI to complete 5 day therapy tomorrow Urine culture noted gardnerella-like bacilli (4) Diabetes mellitus, type 2: Plan: Diabetes s/p pancreatectomy A1c: 7.7 on 04/16/22 Hold home metformin Continue insulin per protocol (5) Hypertension: Plan: Continue nadolol (6) Hyperlipidemia: Plan: Continue atorvastatin, fenofibrate (7) Transient ischemic attack (TIA): Plan: Continue aspirin, atorvastatin (8) Depression: (9) Anxiety: Plan: Continue venlafaxine DVT Prophylaxis Lovenox SQ Full code Follows with Luz Marina Perez PA-C I spent a total of 40 minutes reviewing notes, outpatient records, labs, medication, documenting and providing care for this patient excluding time spent in the performance of separately billed services. Admission and Anticipated Discharge Date Admission Date: May 13, 2022 Subjective Patient seen and examined Reported nausea Had bilous vomiting this morning Still has abd pain Denied chest pain, cough, shortness of breath, Denied fever, chills Reported no dysuria today. Denied urgency, hematuria Physical Exam Constitutional: + well hydrated; no acute distress Eyes: PERRL, conjunctivae normal, anicteric sclerae ENMT: external ear and nose normal, oropharynx normal Respiratory: normal respiratory effort, lungs clear to auscultation Cardiovascular: Rate/Rhythm: regular rate and regular rhythm S1 S2 Gastrointestinal (Abdomen): Inspection/Auscultation: abdomen normal to inspection and normal bowel sounds; abdomen not distended Percussion/Palpation: + abdomen tender (Epigastrium) and abdomen soft; no guarding and abdomen not rigid Musculoskeletal: no cyanosis or clubbing, extremities motor strength 5/5 Neurologic: PERRL, EOMI, accommodation nl, no face palsy, no dysarthria Psychiatric: A+Ox3, euthymic affect Results & Data Results & Data Vital Signs (Past 12 Hours) Vital Signs Temp Pulse Resp BP Pulse Ox O2 Del Method 05/18/22 07:37 36.8 C 77 16 133/74 98 Room Air Laboratory Results Abnormal lab results 05/17/22 05/17/22 05/18/22 Range/Units 17:11 20:47 06:33 BUN 3 L (6-23) mg/dl BUN/Creatinine Ratio 3.7 L (10-20) Glucose 121 H (70-99(Fasting)) mg/dl POC Glucose 152 H 111 H (70-99) mg/dl 05/18/22 05/18/22 Range/Units 07:58 12:05 BUN (6-23) mg/dl BUN/Creatinine Ratio (10-20) Glucose (70-99(Fasting)) mg/dl POC Glucose 108 H 108 H (70-99) mg/dl
--- NOTE | 2022-05-18 13:32 | CT Scan Report ---
CT abdomen w IV con CLINICAL HISTORY: Pancreatitis. Persistent symptoms. Reeval TECHNIQUE: Helical axial images of the abdomen were obtained. Automated dose lowering techniques and/ or adjustment according to patient size were utilized for this exam. This exam was performed with in travenous contrast. CT DOSE: 595.62 mGycm Comparison: Comparison is made to CT abdomen pelvis 05/13/2022 FINDINGS: Lower chest: Bibasilar atelectasis versus scarring is seen. Liver: Unremarkable. No focal lesions are seen. Gallbladder and biliary tree: Patient is status post cholecystectomy. No intra- or extrahepatic bilia ry ductal dilation. Pancreas: Perinephric stranding is seen. No jesus pancreatic hypoenhancement. Postsurgical changes ar e again noted about the pancreas. Spleen: Unremarkable. Adrenals: Unremarkable. Kidneys and ureters: Nonobstructive stones are seen in the left kidney. Bowel: The appendix is normal. Lymph nodes Retroperitoneal: Unremarkable. Mesenteric: Unremarkable. Peritoneum: Normal. Vessels: Unremarkable. Abdominal wall: Unremarkable. Bones: Normal degenerative changes are seen most prominent at L5-S1. IMPRESSION: Mild peripancreatic stranding is seen which may represent residual pancreatitis. Overall inflammatory appearance has significantly decreased from prior exam. No fluid collections are seen to suggest pse udocyst formation. Postsurgical changes are again noted about the pancreas. ACT 112: Negative or not required by law. Electronically signed by: Drake Arechiga M.D. 05/18/2022 1:30 PM
[2022-05-18] MEDS: cefTRIAXone SODIUM 2,000 MG in DEXTROSE 5% 50 ML IV SCH (13:54)
[2022-05-18] MEDS: ENOXAPARIN INJ 40 MG/0.4 ML SYR SQ SCH (19:23)
[2022-05-19] MEDS: LACTATED RINGER'S 1,000 ML IV SCH ×2 (04:49→11:24)
[2022-05-19 07:22] LABS: Hematocrit (blood only) 33.9 % (37.0-47.0); Hemoglobin 11.5 g/dl (12.0-16.0); Mean Corpuscular Hemoglobin 31.4 pg (25.0-34.0); Mean Corpuscular Hgb Conc 33.9 g/dL (32.0-36.0); Mean Corpuscular Volume 92.6 fL (80.0-100.0); Mean Platelet Volume 10.2 fL (9.4-12.4); Platelet Count 310 K/uL (130-400); RDW Standard Deviation 40.8 fL (36.4-46.3); Red Blood Count 3.66 M/uL (4.20-5.40)
[2022-05-19] MEDS ORDERED: oxyCODONE HCL IR 5 MG TAB (IMMEDIATE RELEASE) PO PRN (07:37)
[2022-05-19 07:43] LABS: BUN Creatinine Ratio 5.1 (10-20); Calcium 8.9 mg/dl (8.5-10.1); Creatinine Clr Calc Pharmacy 100.7 ml/min; Est GFR (African American) 105.5 ml/min; Magnesium 1.4 mg/dl (1.7-2.4); Potassium 3.6 mmol/L (3.5-5.1)
[2022-05-19] MEDS: FENOFIBRATE NANOCRYSTALLIZED 145 MG TABLET PO SCH (08:38)
[2022-05-19] MEDS: ASPIRIN 81 MG CHEW PO SCH (08:38)
[2022-05-19] MEDS: ATORVASTATIN 40 MG TAB PO SCH (08:38)
[2022-05-19] MEDS: PANTOprazole 40 MG TAB PO SCH (08:38)
[2022-05-19] MEDS: nadoloL 40 MG TAB PO SCH (08:38)
[2022-05-19] MEDS: VENLAFAXINE HCL XR 75 MG CAPXR PO SCH (08:39)
[2022-05-19] MEDS: POLYETHYLENE (MIRALAX) 17 GM PACK PO PRN (08:46)
[2022-05-19] MEDS ORDERED: MAGNESIUM OXIDE 400 MG TAB PO SCH (09:00)
[2022-05-19] MEDS: LANTUS PER UNIT CHARGE SQ SCH (09:20)
[2022-05-19] MEDS: INSULIN ASPART PER UNIT CHARGE SC SCH ×2 (09:21→13:01)
[2022-05-19] MEDS: MAGNESIUM SULFATE / D5W 1 GM/100 ML BAG IV SCH ×2 (09:26→12:15)
--- NOTE | 2022-05-19 11:32 | Discharge Summary ---
Discharge Summary Date of Service May 19, 2022 Notes For Next Care Provider Patient was admitted with acute pancreatitis. She was treated conservatively with bowel rest, IV fluids and IV analgesia. She wished to switch to [facility] gastroenterology and establish with providers while inpatient. She will need follow-up with [facility] gastroenterology at discharge. Hospital course was complicated by hypomagnesemia. On day of discharge her magnesium was 1.4 and she received 2 g of IV magnesium sulfate. She is being discharged on oral magnesium oxide. Recommend repeat magnesium level at follow-up appointment. She was also treated with IV Rocephin for 5 days due to Gardnerella like bacilli UTI. Medication Changes From Visit Magnesium oxide 400 mg once daily. Admission HPI Per Admitting Provider Patient is 46-year-old female with PMH benign pancreatic NET s/p Whipple in 2013, post pancreatectomy diabetes, TIA, depression presented to ER with complaint of abdominal pain that started today. Patient reports woke up this morning and was feeling okay then later started with epigastric, left upper quadrant pain described as cramping. Reports pain radiates up to left chest. Pain aggravated with palpation or movement. States this feels similar to when she had pancreatitis last month. Also complains of nausea, dry heaves. Denies any known fever, chills. History of hospital admission at [facility] on 04/02/22-04/06/22 for pancreatitis that was thought secondary to alcohol, however had noted triglycerides while admitted and repeat outpatient fasting lipid panel was suggested. Patient reports not drinking ETOH, not taking NSAIDs. Has been having postprandial epigastric pain, nausea for months. She states since her last admission in April feels postprandial epigastric pain and bloating, nausea. She has been eating liquids, applesauce, pudding as that is what she can tolerate. Reports a couple days ago did tolerate Caesar salad. Denies fever/chills, diaphoresis, diarrhea, constipation, hematemesis DECKER, dizziness, syncope, vision changes, neck pain, SOB, orthopnea, palpitations, cough, sore throat, rhinorrhea, paresthesias, weakness, extremity weakness, extremity edema, rashes, dysuria, hematuria, urinary frequency Outpatient chart reviewed. 04/04/2022:CT abdomen pelvis: Mild. Pancreatic stranding. No peripancreatic fluid collection. Postoperative changes of prior Whipple EUS on 04/17/2022: Limited exam due to Whipple's anatomy, fatty liver, visualized part of the body and tail of the remnant pancreas were within normal 04/16/22 lipid panel: Total cholesterol 203, LDL: 1006, HDL: 42, triglycerides 275. Patient was started on fenofibrate Admission Exam Per Admitting Provider General: no distress, WDWN Head: normocephalic, atraumatic Eyes: conjunctiva non-injected, anicteric ENT: normal inspection external ears, nose, mucous membranes moist Neck: supple, trachea midline Lungs: clear, no respiratory distress, no wheezing/rhonchi/rales CV: RRR, no murmur, no pretibial edema Abd: +healed surgical scars, normal BS, soft, +tenderness to palpation epigastric, LUQ with guarding Ext: no cyanosis, no calf tenderness Neuro: A&O x 3, no focal deficits noted, normal affect Skin: warm, dry Principal Dx & Hospital Course #1 = Principal Diagnosis (1) Pancreatitis: (2) Left upper quadrant abdominal pain: This is a 46-year-old female with PMH benign pancreatic NET s/p Whipple in 2013, post pancreatectomy diabetes, TIA, depression presented to ER with complaint of epigastric, LUQ abdominal pain, nausea that started on day of admission, 05/13/22. She has H/O pancreatitis in April 2022 thought secondary to ETOH. She has history of EUS on 04/17/2022: Limited exam due to Whipple's anatomy, fatty liver, visualized part of the body and tail of the remnant pancreas were within normal limits. Her 04/16/22 lipid panel revealed Total cholesterol 203, LDL: 1006, HDL: 42, & triglycerides 275. On admission her lipase was 4789 and LFTs WNL. Initial CT scan of abdomen pelvis reveal previous Whipple procedure, evidence of acute pancreatitis and no fluid collection noted. Hepatic steatosis was noted on imaging. She was treated conservatively with supportive care, bowel rest, aggressive IV fluid resuscitation, antiemetics and IV analgesia. Her symptoms gradually resolved. She did have subsequent vomiting on 05/18 therefore repeat CAT scan was obtained which showed residual and resolving pancreatitis. Her hospital course was complicated by hypomagnesemia which was repleted. On day of discharge her magnesium was 1.4 and she received 2 g of IV magnesium sulfate and will be discharged on oral magnesium supplementation. She was also treated with IV Rocephin for a 5-day course secondary to UTI symptoms and a urine culture growing Gardnerella like bacilli. On day of discharge, 05/19/2022 patient's abdominal pain has resolved and she is tolerating a diabetic and low-fat diet. She offers no acute concerns and will follow-up with gastroenterology as outpatient. Per gastroenterology it is noted that she may need and benefit from Creon but will evaluate on follow up. She continued her medications and her chronic medical conditions remained stable throughout hospital stay. (3) Abnormal urinalysis: (4) Diabetes mellitus, type 2: (5) Hypertension: (6) Hyperlipidemia: (7) Transient ischemic attack (TIA): (8) Depression: (9) Anxiety: Discharge Exam Gen: WD/WN, NAD, A&O x3 HEENT: Normocephalic, atraumatic, conjunctivae moist, sclerae anicteric, mucous membranes moist. Lung: Clear to Auscultation bilaterally, no wheezes/rales/rhonchi Heart: Regular rate, regular rhythm, no murmurs, rubs, or gallops Abdomen: Soft, NT, ND +BS x 4 Extremities: No edema Skin: Warm, no rash, negative turgor. Updated Medication List Medication Instructions Recorded Confirmed Type aspirin 81 mg chewable tablet 81 mg PO QAM 04/15/22 05/13/22 History (Aspirin Childrens) atorvastatin 40 mg tablet 40 mg PO DAILY 04/15/22 05/13/22 History insulin aspart U-100 100 unit/mL 1 sliding scale dose subcut 04/15/22 05/13/22 History (3 mL) subcutaneous pen (Novolog USEASDIRECTD FlexPen U-100 Insulin aspart) insulin glargine 100 unit/mL (3 14 unit subcut HS 04/15/22 05/13/22 History mL) subcutaneous pen (Lantus Solostar U-100 Insulin) metformin 500 mg tablet,extended 500 mg PO BID 04/15/22 05/13/22 History release 24 hr nadolol 40 mg tablet 40 mg PO QAM 04/15/22 05/13/22 History ondansetron HCl 4 mg tablet 4 mg PO Q6H PRN Nausea 04/15/22 05/13/22 History venlafaxine 75 mg tablet,extended 75 mg PO QAM 04/15/22 05/13/22 History release 24 hr fenofibrate nanocrystallized 145 145 mg PO QAM 05/13/22 05/13/22 History mg tablet omeprazole 20 mg capsule,delayed 20 mg PO QAM 05/13/22 05/13/22 History release magnesium oxide 400 mg (241.3 mg 400 mg PO QAM #14 tabs 05/19/22 Rx magnesium) tablet Hospital Stay Data Consultations 05/13/22 16:06 ED Decision to Admit Stat 05/14/22 08:00 Consult Gastroenterology Routine Diagnostic Imagining Performed Abdomen/Pelvis CT 05/13/22 16:43 CT SCAN OF THE ABDOMEN AND PELVIS WITH IV CONTRAST CLINICAL HISTORY: Generalized abdominal pain. COMPARISON STUDY: No priors. TECHNIQUE: Following the IV administration of 86 cc of Optiray 350, CT scan of the abdomen and pelvis is performed from the lung bases to the proximal femora. Images are reviewed in the axial, sagittal, and coronal planes. IV contrast was administered without complication. A dose lowering technique was utilized adhering to the principles of ALARA. CT DOSE: 569.34 mGy.cm FINDINGS: Lung bases: The heart is normal in size and without pericardial effusion. There is a large calcified granuloma in the right lower lobe. The lung bases are otherwise clear noting dependent atelectasis. Liver: The contrast-enhanced liver is top normal in size and demonstrates diff usely diminished attenuation indicating steatosis. There is no intrahepatic biliary ductal dilatation. The hepatic veins and portal veins are patent. Gallbladder: Surgically absent noting clips in the gallbladder fossa. Spleen: Normal in size and attenuation. Pancreas: The pancreatic head is surgically absent suggesting previous Whipple procedure. There is peripancreatic inflammation and fluid consistent with acute pancreatitis. The gland enhances throughout and the duct is normal in caliber. No organized peripancreatic fluid collection is seen. The splenic vein is patent. Adrenal glands: Unremarkable. Kidneys: The contrast enhanced kidneys are normal in size and without hydronephrosis. The kidneys enhance symmetrically. Abdominal vasculature: The abdominal aorta is normal in course and caliber noting scattered foci of atherosclerotic calcification. Bowel: There is postoperative change from distal gastrectomy and gastrojejunostomy. There is moderate colonic fecal retention. No bowel obstruction is identified. The appendix is well-visualized and normal. Peritoneum: There is no intraperitoneal free air or abdominal ascites. There is a fat-containing umbilical hernia. Lymphadenopathy: None. Pelvic viscera: The bladder is normal as visualized. The uterus is surgically absent. No adnexal lesion is seen. Skeletal structures: No lytic or blastic lesions are seen. There is moderate degenerative disc space narrowing at L5-S1. IMPRESSION: 1. Findings suggest previous Whipple procedure. Correlate with the operative history. 2. There is evidence of acute pancreatitis. 3. The pancreas enhances throughout and there is no organized peripancreatic fluid collection. 4. Hepatic steatosis. 5. Additional findings as above. ACT 112: Negative or not required by law. Electronically signed by: Gerardo Cordoba M.D. 05/13/2022 5:[address] 05/18/22 11:56 CT abdomen w IV con CLINICAL HISTORY: Pancreatitis. Persistent symptoms. Reeval TECHNIQUE: Helical axial images of the abdomen were obtained. Automated dose lowering techniques and/or adjustment according to patient size were utilized for this exam. This exam was performed with intravenous contrast. CT DOSE: 595.62 mGycm Comparison: Comparison is made to CT abdomen pelvis 05/13/2022 FINDINGS: Lower chest: Bibasilar atelectasis versus scarring is seen. Liver: Unremarkable. No focal lesions are seen. Gallbladder and biliary tree: Patient is status post cholecystectomy. No intra- or extrahepatic biliary ductal dilation. Pancreas: Perinephric stranding is seen. No jesus pancreatic hypoenhancement. Postsurgical changes are again noted about the pancreas. Spleen: Unremarkable. Adrenals: Unremarkable. Kidneys and ureters: Nonobstructive stones are seen in the left kidney. Bowel: The appendix is normal. Lymph nodes Retroperitoneal: Unremarkable. Mesenteric: Unremarkable. Peritoneum: Normal. Vessels: Unremarkable. Abdominal wall: Unremarkable. Bones: Normal degenerative changes are seen most prominent at L5-S1. IMPRESSION: Mild peripancreatic stranding is seen which may represent residual pancreatitis. Overall inflammatory appearance has significantly decreased from prior exam. No fluid collections are seen to suggest pseudocyst formation. Postsurgical changes are again noted about the pancreas. ACT 112: Negative or not required by law. Electronically signed by: Drake Arechiga M.D. 05/18/2022 1:30 PM Pending Results Patient Have Any Pending Studies at Discharge: No Discharge Instructions Given to Patient (Per Discharging Provider) MEDICATION CHANGES: Magnesium oxide 400 mg once daily due to low magnesium levels. SUMMARY OF TEST RESULTS: You were admitted to hospital secondary to abdominal pain and were found to have acute pancreatitis. You were treated with bowel rest, IV fluid, as needed IV pain medications and your diet was slowly advanced. CT scan was repeated on 05/18 which revealed residual pancreatitis however overall inflammatory appearance has significantly decreased from initial CAT scan on admission. Your magnesium was low during hospital stay and this was replaced. You were treated with a 5 day course of IV antibiotics due to Urinary Tract Infection. PENDING TEST RESULTS: None RECOMMENDATIONS FOR FOLLOW-UP: Please follow-up with primary care provider as scheduled. Recommend repeat magnesium levels at follow-up appointment with primary care provider to determine if you need continued magnesium supplementation. Continue diet as tolerated, recommend low fat and diabetic diet. Would recommend utilizing over the counter Tylenol for pain. Recommend following up with your [employer] after discharge from [facility] due to recurrent episodes of pancreatitis. 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 If you do not hear from them within 1 week I would recommend reaching out to their office. OTHER INSTRUCTIONS: Seek medical attention if you have: * temperature above 101 * chest pain or trouble breathing * abdominal pain, nausea, vomiting * diarrhea, dark stools or bloody stools * any unanswered questions or concerns Call 911 if symptoms are severe. Please take good care of yourself. It has been a pleasure taking care of you. Please take care of yourself. If you have any questions regarding your recent hospitalization please contact [facility] and request Skip Ceballos @ [phone]. Brigette Bernal PA-C Total Time Total Time Spent Total Time Spent (In Minutes): 45 minutes. Supervising Physician Co-Signing Physician Notes Agree with findings and plans as detailed by Brigette Bernal PA-C
== END 2022-05-19 15:40 | disposition home or self-care (01) | DRG 439 ==
LOC: ED 13:25 → SUATTDRO 17:04 → 3N 17:04

== ENCOUNTER 2022-05-25 16:21 | Observation (INO) ==
[2022-05-25] MEDS ORDERED: SODIUM CHLORIDE 0.9% 1000ML 1,000 ML IV STA (17:06)
[2022-05-25] MEDS ORDERED: ONDANSETRON INJ 2 MG/ML 2 ML VIAL IV STA (17:06)
--- NOTE | 2022-05-25 17:06 | ED Triage Note ---
Date of Service May 25, 2022 History of Present Illness This patient was briefly evaluated while in triage. An abbreviated physical exam was performed. This patient is a 46-year-old Female who presents to the ED for evaluation of abdominal pain, reports history of pancreatitis and her GI dr advised to come in. Just discharged from here a week ago. Vomiting up bile. Denies fevers or chills. Physical Exam CONSTITUTIONAL: No acute distress. Well appearing. RESPIRATORY: Clear to auscultation bilaterally. Equal expansion bilaterally. CARDIOVASCULAR: Regular rate and rhythm with no murmurs, rubs or gallops. GASTROINTESTINAL: Soft, TTP in left upper abdomen and side. Normal BS. NEUROLOGIC: Alert and oriented X 4 with normal affect. Initial orders for labs and / or imaging were placed and patient was placed in the waiting area until a bed is available. Please see further documentation for the full ED course.
--- NOTE | 2022-05-25 18:04 | XRay Report ---
XR chest 1V portable HISTORY: 46 years-old Female abdominal pain acute chest and abdominal pain COMPARISON: CT abdomen 05/18/2022 TECHNIQUE: AP view of the chest FINDINGS: Cardiomediastinal and hilar silhouettes are within normal limits. Probable trace pleural effusions. N o pneumothorax, airspace consolidation or overt pulmonary edema. The bones appear grossly intact. IMPRESSION: 1. Trace pleural effusions are redemonstrated. 2. No airspace consolidation. ACT 112: Negative or not required by law. The above report was generated using voice recognition software. It may contain grammatical, syntax o r spelling errors. Electronically signed by: Obed Snow M.D. 05/25/2022 6:02 PM
[2022-05-25 18:47] LABS: Basophils # (auto) 0.05 K/uL (0-0.2); Basophils % (auto) 0.7 %; Eosinophils # (auto) 0.07 K/uL (0-0.50); Hematocrit (blood only) 38.9 % (37.0-47.0); Immature Granulocytes # (auto) 0.03 K/uL (0.01-0.20); Immature Granulocytes % (auto) 0.4 %; Lymphocytes # (auto) 2.47 K/uL (1.2-3.4); Lymphocytes % (auto) 36.1 %; Mean Corpuscular Hemoglobin 31.8 pg (25.0-34.0); Mean Corpuscular Hgb Conc 33.4 g/dL (32.0-36.0); Mean Corpuscular Volume 95.1 fL (80.0-100.0); Mean Platelet Volume 10.3 fL (9.4-12.4); Monocytes # (auto) 0.63 K/uL (0.11-0.59); Monocytes % (auto) 9.2 %; Neutrophils # (auto) 3.59 K/uL (1.40-6.50); Neutrophils % (auto) 52.6 %; Platelet Count 425 K/uL (130-400); RDW Coefficient of Variation 12.4 % (11.5-14.5); RDW Standard Deviation 43.1 fL (36.4-46.3); Red Blood Count 4.09 M/uL (4.20-5.40); White Blood Count 6.84 K/ul (4.8-10.8)
[2022-05-25 18:59] LABS: Prothrombin Time 10.9 Seconds (9.0-12.0)
[2022-05-25 19:18] LABS: Albumin Globulin Ratio 1.4 (0.9-2); Albumin Level 4.6 gm/dl (3.4-5.0); Bilirubin,Total 0.3 mg/dl (0.2-1.0); Calcium 10.2 mg/dl (8.6-10.3); Creatinine Clr Calc Pharmacy 89.8 ml/min; Est GFR (African American) 91.4 ml/min; Est GFR (Non-African American) 78.8 ml/min; Globulin 3.3 gm/dl (2.5-4.0); Potassium 4.1 mmol/L (3.5-5.1); Total Protein 7.9 gm/dl (6.0-8.3)
[2022-05-25 19:24] LABS: Troponin I High Sensitivity 3.3 pg/ml (0-14)
[2022-05-25] MEDS ORDERED: OPTIRAY 350 100ml IV ONE (19:50)
--- NOTE | 2022-05-25 20:11 | CT Scan Report ---
ABDOMEN AND PELVIS CT WITH IV CONTRAST CT DOSE: 518.36 mGy.cm HISTORY: Acute left upper quadrant abdominal pain LUQ pain, h/o pancreatitis TECHNIQUE: Multiaxial CT images of the abdomen and pelvis were performed following the IV administrat ion of 89 cc of Optiray, A dose lowering technique was utilized adhering to the principles of ALARA. COMPARISON STUDY: CT abdomen 05/18/2022, 05/13/2022 FINDINGS: Trace pleural effusions. No pneumatosis or pneumoperitoneum. Unremarkable spleen, and adren al glands. Hepatic steatosis. Patency of the hepatic and portal veins. Postoperative changes suggesti ve of prior Whipple procedure redemonstrated. Findings a mild acute pancreatitis are redemonstrated w ith improving interstitial and peripancreatic inflammation. No acute peripancreatic fluid collection or pancreatic ductal dilation. Unremarkable right kidney. 4 mm nonobstructing calculus of the lateral interpolar left kidney with a punctate nonobstructing calculus inferiorly. No ureteral calculus or hydronephrosis. Unremarkable uri nary bladder. Hysterectomy. Mild atherosclerosis of the aorta without aneurysm. No lymphadenopathy. N o bowel obstruction or bowel wall thickening. Mild colonic fecal retention. Normal appendix. Postoper ative changes of the intra-abdominal wall. No acute fracture. IMPRESSION: 1. Mildly improved findings of acute pancreatitis compared to the 05/18/2022 study. No evidence of victor creatic necrosis or acute peripancreatic fluid collection. 2. No bowel obstruction or bowel wall thickening. 3. Left nephrolithiasis. 4. Trace pleural effusions. 5. Hepatic steatosis. ACT 112: Negative or not required by law. The above report was generated using voice recognition software. It may contain grammatical, syntax o r spelling errors. Electronically signed by: Obed Snow M.D. 05/25/2022 8:09 PM
--- NOTE | 2022-05-25 21:34 | Emergency Department Note ---
History of Present Illness General Chief complaint: Abdominal Pain Stated complaint: REF BY DOC,PANCREATITIS FLARE UP Time Seen by Provider: 05/25/22 21:15 History of Present Illness Maximum Pain Intensity: 5 This is a 46-year-old female presenting to the emergency department for evaluati on of abdominal pain. The patient states the pain is in her upper abdomen and into her back. She was going to her doctor's office this morning for a hospital follow-up, she was admitted about a week ago for acute pancreatitis. The patient feels symptoms are similar to that episode. She is nauseated and has not had much to eat or drink today. She denies drinking alcohol rates her discomfort a 5/10. Home Medications Medication Instructions Recorded Confirmed Type aspirin 81 mg chewable tablet 81 mg PO QAM 04/15/22 05/25/22 History (Aspirin Childrens) atorvastatin 40 mg tablet 40 mg PO DAILY 04/15/22 05/25/22 History insulin aspart U-100 100 unit/mL 1 sliding scale dose subcut 04/15/22 05/25/22 History (3 mL) subcutaneous pen (Novolog USEASDIRECTD FlexPen U-100 Insulin aspart) insulin glargine 100 unit/mL (3 14 unit subcut HS 04/15/22 05/25/22 History mL) subcutaneous pen (Lantus Solostar U-100 Insulin) metformin 500 mg tablet,extended 500 mg PO BID 04/15/22 05/25/22 History release 24 hr nadolol 40 mg tablet 40 mg PO QAM 04/15/22 05/25/22 History ondansetron HCl 4 mg tablet 4 mg PO Q6H PRN Nausea 04/15/22 05/25/22 History venlafaxine 75 mg tablet,extended 75 mg PO QAM 04/15/22 05/25/22 History release 24 hr fenofibrate nanocrystallized 145 145 mg PO QAM 05/13/22 05/25/22 History mg tablet omeprazole 20 mg capsule,delayed 20 mg PO QAM 05/13/22 05/25/22 History release magnesium oxide 400 mg (241.3 mg 400 mg PO QAM #14 tabs 05/19/22 05/25/22 Rx magnesium) tablet Allergies Allergy/AdvReac Type Severity Reaction Status Date / Time clindamycin Allergy Intermediate itchy, Verified 05/25/22 22:23 diarrhea metoprolol Allergy Intermediate Chest Pain Verified 05/25/22 22:23 tamsulosin [From Flomax] AdvReac Mild nausea/vomi Verified 05/25/22 22:23 ting Past Med/Surg History Medical History Anxiety Diabetes mellitus, type 2 History of COVID-19 beginning of 2021--mild symptoms, no symptoms now Hyperlipidemia Hypertension History of - per cardio records 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--had Whipple procedure done Pancreatitis recent admission at [facility] for this POTS (postural orthostatic tachycardia syndrome) Per cardio records Tachycardia Hx of--reason for Nadolol, per pt HR runs 85-99 with med "Inappropriate sinus tachycardia" per cardio records Transient ischemic attack (TIA) 2014--unknown cause--no deficits, on 81mg aspirin daily Surgical History History of abdominoplasty History of section History of colonoscopy History of esophagogastroduodenoscopy (EGD) History of hysterectomy History of Whipple procedure (~2013) with gallbladder removal History of wisdom tooth extraction Family History Other No family history of adverse response to anesthesia Social History Smoking Status: Never smoker Second Hand Exposure: No; Do You Dip or Chew Tobacco: No; Tobacco Cessation Education Requested by Patient: No Hx Alcohol Use: Yes Alcohol type: beer Hx Substance Use: No Preferred Language: Welsh Communication Ability: Effective Bridge Builder Required: No Beliefs That Will Affect Care: None Current Living Situation: Spouse Other Information That Helps Us Care for You: No Feels Safe at Home: Yes Safety Concerns: Feels Safe At This Time Assistive Devices: None Review of Systems A total of 10 systems reviewed and were otherwise negative Physical Exam Vital Signs Vital Signs - 24 hr 05/26/22 01:30 Pulse Rate [Right] 64 Respiratory Rate 14 Blood Pressure [Right Arm] 118/78 Blood Pressure Mean [Right Arm] 91 Pulse Oximetry 98 VITALS: Vitals are noted on the nurse's note and reviewed by myself. Vital signs stable. GENERAL: Well-developed, well-nourished, white female, who is in no acute distress and resting comfortably. Patient is cooperative with the examination. HEAD: Normocephalic atraumatic. NECK: Supple without nuchal rigidity. No lymphadenopathy. No thyromegaly. C ervical spine is nontender. HEART: Regular rate and rhythm without murmurs gallops or rubs. LUNGS: Clear to auscultation bilaterally without wheezes, rales or rhonchi. No retractions or accessory muscle use. ABDOMEN: Positive normal bowel sounds x 4. Soft with mild tenderness in the epigastric region. No lower tenderness. No rebound or guarding. MUSCULOSKELETAL: No muscle atrophy, erythema, or edema noted. Full range of motion in all extremities. Course Administered Medications Acetaminophen (Acetaminophen 325 Mg Tab) 650 mg PO Q4H PRN PRN Reason: pain/fever Stop: 06/25/22 02:29 Last Admin: 05/26/22 07:32 Dose: 650 mg Documented By: MELLISA Lipase/Protease/Amylase (Pancreaze (Lipase 10,500u) Cap) 1 cap PO AC [facility] Stop: 06/25/22 16:29 Last Admin: 05/26/22 16:58 Dose: 1 cap Documented By: MELLISA Aspirin (Aspirin 81 Mg Ectab) 81 mg PO [facility] Stop: 06/25/22 08:59 Last Admin: 05/26/22 09:30 Dose: 81 mg Documented By: MELLISA Enoxaparin Sodium (Enoxaparin Inj 40 Mg/0.4 Ml Syr) 40 mg SQ [facility] Stop: 06/25/22 08:59 Last Admin: 05/26/22 09:31 Dose: 40 mg Documented By: MELLISA Lactated Ringer's (Lr) 1,000 mls @ 200 mls/hr IV .Q5H [facility] Stop: 05/28/22 06:59 Last Admin: 05/26/22 23:42 Dose: 200 mls/hr Documented By: Infusion: 05/26/22 22:50 Dose: 0 mls/hr Documented By: Admin: 05/26/22 17:50 Dose: 200 mls/hr Documented By: Infusion: 05/26/22 17:33 Dose: 200 mls/hr Documented By: Admin: 05/26/22 12:33 Dose: 200 mls/hr Documented By: Infusion: 05/26/22 12:28 Dose: 200 mls/hr Documented By: Admin: 05/26/22 07:28 Dose: 200 mls/hr Documented By: MELLISA Insulin Aspart (Insulin Aspart Per Unit Charge) 0 units SC ACHS [facility] Stop: 06/25/22 02:29 Last Admin: 05/26/22 21:00 Dose: Not Given Documented By: ANGELA Co-signed By: MAGGIE Admin: 05/26/22 17:29 Dose: Not Given Documented By: Admin: 05/26/22 12:55 Dose: Not Given Documented By: Admin: 05/26/22 09:29 Dose: Not Given Documented By: Admin: 05/26/22 02:58 Dose: Not Given Documented By: ANGELA Co-signed By: SMP Insulin Glargine (Lantus Per Unit Charge) 5 units SQ HS [facility] Stop: 06/25/22 20:59 Last Admin: 05/26/22 21:00 Dose: Not Given Documented By: ANGELA Nadolol (Nadolol 40 Mg Tab) 40 mg PO [facility] Stop: 06/25/22 08:59 Last Admin: 05/26/22 09:31 Dose: 40 mg Documented By: MELLISA Ondansetron HCl (Ondansetron Inj 2 Mg/Ml 2 Ml Vial) 4 mg IV Q6H PRN PRN Reason: Nausea And Vomiting Stop: 06/25/22 12:48 Last Admin: 05/26/22 12:53 Dose: 4 mg Documented By: MELLISA Pantoprazole Sodium (Pantoprazole 40 Mg Tab) 40 mg PO [facility] Stop: 06/25/22 08:59 Last Admin: 05/26/22 09:30 Dose: 40 mg Documented By: MELLISA Polyethylene Glycol (Polyethylene (Miralax) 17 Gm Pack) 17 gm PO DAILY [facility] Stop: 06/25/22 10:14 Last Admin: 05/26/22 10:43 Dose: 17 gm Documented By: MELLISA Venlafaxine HCl (Venlafaxine Hcl Xr 75 Mg Capxr) 75 mg PO [facility] Stop: 06/25/22 08:59 Last Admin: 05/26/22 09:30 Dose: 75 mg Documented By: MELLISA Discontinued Medications Acetaminophen (Acetaminophen 325 Mg Tab) 650 mg PO Q6H PRN PRN Reason: Fever/pain Stop: 06/24/22 23:08 Last Admin: 05/26/22 00:14 Dose: 650 mg Documented By: CONNIE Hydromorphone HCl (Hydromorphone Inj 0.5 Mg/0.5 Ml Syr) 0.25 mg IV Q6H PRN PRN Reason: Pain Stop: 06/09/22 21:01 Last Admin: 05/26/22 21:13 Dose: 0.25 mg Documented By: ANGELA Sodium Chloride (Nss 1000ml) 1,000 mls @ 999 mls/hr IV .Q1H1M STA Stop: 05/25/22 18:06 Last Infusion: 05/25/22 21:47 Dose: 0 mls/hr Documented By: Admin: 05/25/22 20:16 Dose: 999 mls/hr Documented By: GIOVANNA Lactated Ringer's (Lr) 1,000 mls @ 200 mls/hr IV .Q5H ONE Stop: 05/26/22 06:34 Last Infusion: 05/26/22 07:30 Dose: 0 mls/hr Documented By: Admin: 05/26/22 02:36 Dose: 200 mls/hr Documented By: ANGELA Ioversol (Optiray 350 100ml) 89 ml IV ONCE ONE Stop: 05/25/22 19:51 Last Admin: 05/25/22 19:53 Dose: 89 ml Documented By: ERIK Ioversol (Optiray 350 100ml) 84 ml IV ONCE ONE Stop: 05/26/22 21:50 Last Admin: 05/26/22 21:53 Dose: 84 ml Documented By: ERIK Ketorolac Tromethamine (Ketorolac Tromethamine 15 Mg/Ml Vial) 15 mg IV Q6H PRN PRN Reason: Pain Stop: 05/30/22 23:08 Last Admin: 05/26/22 19:51 Dose: 15 mg Documented By: Admin: 05/26/22 12:29 Dose: 15 mg Documented By: MELLISA Ketorolac Tromethamine (Ketorolac Tromethamine 15 Mg/Ml Vial) 15 mg IV NOW ONE Stop: 05/26/22 20:01 Last Admin: 05/26/22 19:58 Dose: 15 mg Documented By: ANGELA Morphine Sulfate (Morphine Sulfate 4 Mg/Ml 1 Ml Carp\\Vial) 4 mg IV NOW STA Stop: 05/25/22 21:42 Last Admin: 05/25/22 21:53 Dose: 4 mg Documented By: GIOVANNA Ondansetron HCl (Ondansetron Inj 2 Mg/Ml 2 Ml Vial) 4 mg IV NOW STA Stop: 05/25/22 17:07 Last Admin: 05/25/22 18:20 Dose: 4 mg Documented By: PAUL Oxycodone HCl (Oxycodone Hcl Ir 5 Mg Tab (Immediate Release)) 5 mg PO Q4H PRN PRN Reason: Pain Stop: 06/08/22 23:08 Last Admin: 05/26/22 17:00 Dose: 5 mg Documented By: Admin: 05/26/22 09:34 Dose: 5 mg Documented By: MELLISA Medical Decision Making Differential Diagnosis Differential diagnosis: Etiologies such as biliary colic, cholecystitis, hepatitis, pancreatitis, cardiac disease, pancreatitis, gastritis, peptic ulcer disease, appendicitis, cystitis, diverticulitis, mesenteric ischemia, inflammatory bowel disease, i leus, bowel obstruction, testicular/adnexal torsion, aortic pathology, shingles, as well as others were considered Laboratory Data 05/25/22 18:16 05/25/22 18:16 Lab Results 05/25/22 05/25/22 05/25/22 Range/Units 18:16 18:16 18:16 WBC 6.84 (4.8-10.8) K/ul RBC 4.09 L (4.20-5.40) M/uL Hgb 13.0 (12.0-16.0) g/dl Hct 38.9 (37.0-47.0) % MCV 95.1 (80.0-100.0) fL MCH 31.8 (25.0-34.0) pg MCHC 33.4 (32.0-36.0) g/dL RDW Std Deviation 43.1 (36.4-46.3) fL RDW Coeff of [place] 12.4 (11.5-14.5) % Plt Count 425 H (130-400) K/uL MPV 10.3 (9.4-12.4) fL Immature Gran % (Auto) 0.4 % Neut % (Auto) 52.6 % Lymph % (Auto) 36.1 % [place] % (Auto) 9.2 % Eos % (Auto) 1.0 % Baso % (Auto) 0.7 % Neut # (Auto) 3.59 (1.40-6.50) K/uL Lymph # (Auto) 2.47 (1.2-3.4) K/uL [place] # (Auto) 0.63 H (0.11-0.59) K/uL Eos # (Auto) 0.07 (0-0.50) K/uL Baso # (Auto) 0.05 (0-0.2) K/uL Immature Gran # (Auto) 0.03 (0.01-0.20) K/uL PT 10.9 (9.0-12.0) Seconds INR 1.0 (0.9-1.1) Sodium 137 (136-145) mmol/L Potassium 4.1 (3.5-5.1) mmol/L Chloride 102 (98-107) mmol/L Carbon Dioxide 27 (21-32) mmol/L Anion Gap 8 (3-11) BUN 16 (6-23) mg/dl Creatinine 0.89 (0.6-1.2) mg/dl Est Cr Clr Drug Dosing 89.8 ml/min Est GFR ( Amer) 91.4 ml/min Est GFR (Non-Af Amer) 78.8 ml/min BUN/Creatinine Ratio 18.0 (10-20) Glucose 112 H (70-99(Fasting)) mg/dl Calcium 10.2 (8.6-10.3) mg/dl Magnesium 1.9 (1.7-2.4) mg/dl Total Bilirubin 0.3 (0.2-1.0) mg/dl AST 24 (13-39) U/L ALT 30 (7-52) U/L Alkaline Phosphatase 73 (34-104) U/L Troponin I High Sens 3.3 (0-14) pg/ml B-Natriuretic Peptide (0-100) pg/ml Total Protein 7.9 (6.0-8.3) gm/dl Albumin 4.6 (3.4-5.0) gm/dl Globulin 3.3 (2.5-4.0) gm/dl Albumin/Globulin Ratio 1.4 (0.9-2) Triglycerides 190 H (0-150) mg/dl Lipase 70 (11-82) U/L Urine Color Urine Appearance (Clear) Urine pH (4.5-7.5) Ur Specific [place] (1.000-1.030) Urine Protein (Negative) Urine Glucose (UA) (Negative) Urine Ketones (Negative) Urine Blood (Negative) Urine Nitrite (Negative) Urine Bilirubin (Negative) Urine Urobilinogen (Negative) Ur Leukocyte Esterase (Negative) SARS-CoV-2, RNA, NAAT (NEGATIVE) 05/25/22 05/25/22 05/26/22 Range/Units 22:45 23:57 00:39 WBC (4.8-10.8) K/ul RBC (4.20-5.40) M/uL Hgb (12.0-16.0) g/dl Hct (37.0-47.0) % MCV (80.0-100.0) fL MCH (25.0-34.0) pg MCHC (32.0-36.0) g/dL RDW Std Deviation (36.4-46.3) fL RDW Coeff of [place] (11.5-14.5) % Plt Count (130-400) K/uL MPV (9.4-12.4) fL Immature Gran % (Auto) % Neut % (Auto) % Lymph % (Auto) % [place] % (Auto) % Eos % (Auto) % Baso % (Auto) % Neut # (Auto) (1.40-6.50) K/uL Lymph # (Auto) (1.2-3.4) K/uL [place] # (Auto) (0.11-0.59) K/uL Eos # (Auto) (0-0.50) K/uL Baso # (Auto) (0-0.2) K/uL Immature Gran # (Auto) (0.01-0.20) K/uL PT (9.0-12.0) Seconds INR (0.9-1.1) Sodium (136-145) mmol/L Potassium (3.5-5.1) mmol/L Chloride (98-107) mmol/L Carbon Dioxide (21-32) mmol/L Anion Gap (3-11) BUN (6-23) mg/dl Creatinine (0.6-1.2) mg/dl Est Cr Clr Drug Dosing ml/min Est GFR ( Amer) ml/min Est GFR (Non-Af Amer) ml/min BUN/Creatinine Ratio (10-20) Glucose (70-99(Fasting)) mg/dl Calcium (8.6-10.3) mg/dl Magnesium (1.7-2.4) mg/dl Total Bilirubin (0.2-1.0) mg/dl AST (13-39) U/L ALT (7-52) U/L Alkaline Phosphatase (34-104) U/L Troponin I High Sens (0-14) pg/ml B-Natriuretic Peptide 13 (0-100) pg/ml Total Protein (6.0-8.3) gm/dl Albumin (3.4-5.0) gm/dl Globulin (2.5-4.0) gm/dl Albumin/Globulin Ratio (0.9-2) Triglycerides (0-150) mg/dl Lipase (11-82) U/L Urine Color Yellow Urine Appearance Clear (Clear) Urine pH 6.5 (4.5-7.5) Ur Specific [place] > 1.045 H (1.000-1.030) Urine Protein Negative (Negative) Urine Glucose (UA) Negative (Negative) Urine Ketones Negative (Negative) Urine Blood Negative (Negative) Urine Nitrite Negative (Negative) Urine Bilirubin Negative (Negative) Urine Urobilinogen Negative (Negative) Ur Leukocyte Esterase Negative (Negative) SARS-CoV-2, RNA, NAAT NEGATIVE (NEGATIVE) Imaging Data Radiologist's Impression: Abdomen/Pelvis CT 05/25/22 17:[address] WITH IV CONTRAST CT DOSE: 518.36 mGy.cm HISTORY: Acute left upper quadrant abdominal pain LUQ pain, h/o pancreatitis TECHNIQUE: Multiaxial CT images of the abdomen and pelvis were performed following the IV administration of 89 cc of Optiray, A dose lowering technique was utilized adhering to the principles of ALARA. COMPARISON STUDY: CT abdomen 05/18/2022, 05/13/2022 FINDINGS: Trace pleural effusions. No pneumatosis or pneumoperitoneum. Unremark able spleen, and adrenal glands. Hepatic steatosis. Patency of the hepatic and portal veins. Postoperative changes suggestive of prior Whipple procedure redemonstrated. Findings a mild acute pancreatitis are redemonstrated with improving interstitial and peripancreatic inflammation. No acute peripancreatic fluid collection or pancreatic ductal dilation. Unremarkable right kidney. 4 mm nonobstructing calculus of the lateral interpolar left kidney with a punctate nonobstructing calculus inferiorly. No ureteral calculus or hydronephrosis. Unremarkable urinary bladder. Hysterectomy. Mild atherosclerosis of the aorta without aneurysm. No lymphadenopathy. No bowel obstruction or bowel wall thickening. Mild colonic fecal retention. Normal appendix. Postoperative changes of the intra-abdominal wall. No acute fracture. IMPRESSION: 1. Mildly improved findings of acute pancreatitis compared to the 05/18/2022 study. No evidence of pancreatic necrosis or acute peripancreatic fluid collection. 2. No bowel obstruction or bowel wall thickening. 3. Left nephrolithiasis. 4. Trace pleural effusions. 5. Hepatic steatosis. ACT 112: Negative or not required by law. The above report was generated using voice recognition software. It may contain grammatical, syntax or spelling errors. Electronically signed by: Obed Snow M.D. 05/25/2022 8:09 PM MDM Narrative Physical exam and history were performed. Nursing notes, EMR, and Medication List were personally reviewed. No social concerns were identified as barriers to patients care. Patient appears to have abdominal pain bringing her to the ER. Patient was seen during a period of very high ER volume and acuity with extended wait times. Nursing protocol order have been performed and some of these are available for my review at the time of patient encounter. She was hydrated and medicated as above. Patient's blood work is as above and was reviewed. She does not have a significantly elevated white blood cell count, gross anemia, bandemia, or significant electrolyte imbalance. Lipase and transaminases are not diagnostic. CT scan was performed and informally reviewed by myself and read by radiology. CT scan does appear to show pancreatitis. I did discuss options of care with the patient regarding her findings. She does not feel well for discharge home. Case was discussed with the on-call hospitalist team for ongoing care. Please see their dictation for further patient course, plan, disposition. The chart was completed utilizing [employer] Voice Recognition Software. Grammatical errors, random word insertions, pronoun errors, and incomplete sentences are an occasional consequence of this system due to software limitations, ambient noise, and hardware issues. Any formal questions or concerns about the content, text, or information contained within the body of this dictation should be directly addressed to the provider for clarification. Impression & Plan Pancreatitis Discharge Plan Visit Data Chief Complaint: Abdominal Pain Stated Complaint: REF BY DOC,PANCREATITIS FLARE UP ED Provider: Aye Yu ED Midlevel Provider: Jermaine Ricketts Discharge Problem: Pancreatitis Patient Disposition: Admitted As Inpatient Discharge Instructions Interventions: ED Discharge Assessment Last Done: 05/26/22 02:15
[2022-05-25] MEDS ORDERED: MoRPHine SULFATE 4 MG/ML 1 ML CARP\\VIAL IV STA (21:41)
--- NOTE | 2022-05-25 23:04 | History & Physical Report ---
Date of Service May 25, 2022 History of Present Illness Primary Care Provider: Mady Sanders MD Allergies Allergy/AdvReac Type Severity Reaction Status Date / Time clindamycin Allergy Intermediate itchy, Verified 05/25/22 22:23 diarrhea metoprolol Allergy Intermediate Chest Pain Verified 05/25/22 22:23 tamsulosin [From Flomax] AdvReac Mild nausea/vomi Verified 05/25/22 22:23 ting Home Medications Medication Instructions Recorded Confirmed Type aspirin 81 mg chewable tablet 81 mg PO QAM 04/15/22 05/25/22 History (Aspirin Childrens) atorvastatin 40 mg tablet 40 mg PO DAILY 04/15/22 05/25/22 History insulin aspart U-100 100 unit/mL 1 sliding scale dose subcut 04/15/22 05/25/22 History (3 mL) subcutaneous pen (Novolog USEASDIRECTD FlexPen U-100 Insulin aspart) insulin glargine 100 unit/mL (3 14 unit subcut HS 04/15/22 05/25/22 History mL) subcutaneous pen (Lantus Solostar U-100 Insulin) metformin 500 mg tablet,extended 500 mg PO BID 04/15/22 05/25/22 History release 24 hr nadolol 40 mg tablet 40 mg PO QAM 04/15/22 05/25/22 History ondansetron HCl 4 mg tablet 4 mg PO Q6H PRN Nausea 04/15/22 05/25/22 History venlafaxine 75 mg tablet,extended 75 mg PO QAM 04/15/22 05/25/22 History release 24 hr fenofibrate nanocrystallized 145 145 mg PO QAM 05/13/22 05/25/22 History mg tablet omeprazole 20 mg capsule,delayed 20 mg PO QAM 05/13/22 05/25/22 History release magnesium oxide 400 mg (241.3 mg 400 mg PO QAM #14 tabs 05/19/22 05/25/22 Rx magnesium) tablet Past Med/Surg History Medical History Anxiety Diabetes mellitus, type 2 History of COVID-19 beginning of 2021--mild symptoms, no symptoms now Hyperlipidemia Hypertension History of - per cardio records 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--had Whipple procedure done Pancreatitis recent admission at [facility] for this POTS (postural orthostatic tachycardia syndrome) Per cardio records Tachycardia Hx of--reason for Nadolol, per pt HR runs 85-99 with med "Inappropriate sinus tachycardia" per cardio records Transient ischemic attack (TIA) 2014--unknown cause--no deficits, on 81mg aspirin daily Surgical History History of abdominoplasty History of section History of colonoscopy History of esophagogastroduodenoscopy (EGD) History of hysterectomy History of Whipple procedure (~2013) with gallbladder removal History of wisdom tooth extraction Family History Other No family history of adverse response to anesthesia Social History Smoking Status: Never smoker Second Hand Exposure: No; Hx Alcohol Use: Yes Alcohol type: beer Hx Substance Use: No Preferred Language: Botswanan Communication Ability: Effective Dealer Compliance Representative Required: No Beliefs That Will Affect Care: None Current Living Situation: Spouse Feels Safe at Home: Yes Assistive Devices: None Results & Data Results & Data Vital Signs (Past 12 Hours) Vital Signs Temp Pulse Pulse Resp BP BP Pulse Ox 05/25/22 20:18 69 16 118/77 100 05/25/22 20:04 76 18 118/77 100 05/25/22 19:23 60 18 113/78 97 05/25/22 17:03 36.5 C 81 20 118/83 100 O2 Del Method 05/25/22 20:18 Room Air 05/25/22 20:04 Room Air 05/25/22 19:23 Room Air 05/25/22 17:03 Room Air Laboratory Results Laboratory Results WBC 6.84 K/ul (4.8-10.8) 05/25/22 18:16 RBC 4.09 M/uL (4.20-5.40) L 05/25/22 18:16 Hgb 13.0 g/dl (12.0-16.0) 05/25/22 18:16 Hct 38.9 % (37.0-47.0) 05/25/22 18:16 MCV 95.1 fL (80.0-100.0) 05/25/22 18:16 MCH 31.8 pg (25.0-34.0) 05/25/22 18:16 MCHC 33.4 g/dL (32.0-36.0) 05/25/22 18:16 RDW Std Deviation 43.1 fL (36.4-46.3) 05/25/22 18:16 RDW Coeff of [place] 12.4 % (11.5-14.5) 05/25/22 18:16 Plt Count 425 K/uL (130-400) H 05/25/22 18:16 MPV 10.3 fL (9.4-12.4) 05/25/22 18:16 Immature Gran % (Auto) 0.4 % 05/25/22 18:16 Neut % (Auto) 52.6 % 05/25/22 18:16 Lymph % (Auto) 36.1 % 05/25/22 18:16 [place] % (Auto) 9.2 % 05/25/22 18:16 Eos % (Auto) 1.0 % 05/25/22 18:16 Baso % (Auto) 0.7 % 05/25/22 18:16 Neut # (Auto) 3.59 K/uL (1.40-6.50) 05/25/22 18:16 Lymph # (Auto) 2.47 K/uL (1.2-3.4) 05/25/22 18:16 [place] # (Auto) 0.63 K/uL (0.11-0.59) H 05/25/22 18:16 Eos # (Auto) 0.07 K/uL (0-0.50) 05/25/22 18:16 Baso # (Auto) 0.05 K/uL (0-0.2) 05/25/22 18:16 Immature Gran # (Auto) 0.03 K/uL (0.01-0.20) 05/25/22 18:16 PT 10.9 Seconds (9.0-12.0) 05/25/22 18:16 INR 1.0 (0.9-1.1) 05/25/22 18:16 Sodium 137 mmol/L (136-145) 05/25/22 18:16 Potassium 4.1 mmol/L (3.5-5.1) 05/25/22 18:16 Chloride 102 mmol/L (98-107) 05/25/22 18:16 Carbon Dioxide 27 mmol/L (21-32) 05/25/22 18:16 Anion Gap 8 (3-11) 05/25/22 18:16 BUN 16 mg/dl (6-23) 05/25/22 18:16 Creatinine 0.89 mg/dl (0.6-1.2) 05/25/22 18:16 Est Cr Clr Drug Dosing 89.8 ml/min 05/25/22 18:16 Est GFR ( Amer) 91.4 ml/min 05/25/22 18:16 Est GFR (Non-Af Amer) 78.8 ml/min 05/25/22 18:16 BUN/Creatinine Ratio 18.0 (10-20) 05/25/22 18:16 Glucose 112 mg/dl (70-99(Fasting)) H 05/25/22 18:16 Calcium 10.2 mg/dl (8.6-10.3) 05/25/22 18:16 Total Bilirubin 0.3 mg/dl (0.2-1.0) 05/25/22 18:16 AST 24 U/L (13-39) 05/25/22 18:16 ALT 30 U/L (7-52) 05/25/22 18:16 Alkaline Phosphatase 73 U/L (34-104) 05/25/22 18:16 Troponin I High Sens 3.3 pg/ml (0-14) 05/25/22 18:16 Total Protein 7.9 gm/dl (6.0-8.3) 05/25/22 18:16 Albumin 4.6 gm/dl (3.4-5.0) 05/25/22 18:16 Globulin 3.3 gm/dl (2.5-4.0) 05/25/22 18:16 Albumin/Globulin Ratio 1.4 (0.9-2) 05/25/22 18:16 Lipase 70 U/L (11-82) 05/25/22 18:16 Impressions Abdomen/Pelvis CT 05/25/22 17:[address] WITH IV CONTRAST CT DOSE: 518.36 mGy.cm HISTORY: Acute left upper quadrant abdominal pain LUQ pain, h/o pancreatitis TECHNIQUE: Multiaxial CT images of the abdomen and pelvis were performed following the IV administration of 89 cc of Optiray, A dose lowering technique was utilized adhering to the principles of ALARA. COMPARISON STUDY: CT abdomen 05/18/2022, 05/13/2022 FINDINGS: Trace pleural effusions. No pneumatosis or pneumoperitoneum. Unremarkable spleen, and adrenal glands. Hepatic steatosis. Patency of the hepatic and portal veins. Postoperative changes suggestive of prior Whipple procedure redemonstrated. Findings a mild acute pancreatitis are redemonstrated with improving interstitial and peripancreatic inflammation. No acute [place] creatic fluid collection or pancreatic ductal dilation. Unremarkable right kidney. 4 mm nonobstructing calculus of the lateral interpolar left kidney with a punctate nonobstructing calculus inferiorly. No ureteral calculus or hydronephrosis. Unremarkable urinary bladder. Hysterectomy. Mild atherosclerosis of the aorta without aneurysm. No lymphadenopathy. No bowel obstruction or bowel wall thickening. Mild colonic fecal retention. Normal appendix. Postoperative changes of the intra-abdominal wall. No acute fracture. IMPRESSION: 1. Mildly improved findings of acute pancreatitis compared to the 05/18/2022 study. No evidence of pancreatic necrosis or acute peripancreatic fluid collection. 2. No bowel obstruction or bowel wall thickening. 3. Left nephrolithiasis. 4. Trace pleural effusions. 5. Hepatic steatosis. ACT 112: Negative or not required by law. The above report was generated using voice recognition software. It may contain grammatical, syntax or spelling errors. Electronically signed by: Obed Snow M.D. 05/25/2022 8:09 PM Chest X-Ray 05/25/22 17:07 XR chest 1V portable HISTORY: 46 years-old Female abdominal pain acute chest and abdominal pain COMPARISON: CT abdomen 05/18/2022 TECHNIQUE: AP view of the chest FINDINGS: Cardiomediastinal and hilar silhouettes are within normal limits. Probable trace pleural effusions. No pneumothorax, airspace consolidation or overt pulmonary edema. The bones appear grossly intact. IMPRESSION: 1. Trace pleural effusions are redemonstrated. 2. No airspace consolidation. ACT 112: Negative or not required by law. The above report was generated using voice recognition software. It may contain grammatical, syntax or spelling errors. Electronically signed by: Obed Snow M.D. 05/25/2022 6:02 PM
[2022-05-25] MEDS ORDERED: ACETAMINOPHEN 325 MG TAB PO PRN (23:09)
[2022-05-25 23:13] LABS: Magnesium 1.9 mg/dl (1.7-2.4)
[2022-05-26 00:19] LABS: Appearance Urine Clear (Clear); Bilirubin Urine Negative (Negative); Blood Urine Negative (Negative); Color Urine Yellow; Glucose Urine UA Negative (Negative); Ketones Urine Negative (Negative); Leukocyte Esterase Urine Negative (Negative); Nitrite Urine Negative (Negative); Protein Urine Negative (Negative); Specific Gravity Urine > 1.045 (1.000-1.030); Urobilinogen Urine Negative (Negative); pH Urine 6.5 (4.5-7.5)
--- NOTE | 2022-05-26 01:09 | History & Physical Report ---
Date of Service May 26, 2022 Assessment & Plan (1) Pancreatitis: Plan: History recurrent pancreatitis Patient not fully comfortable following recent confinement. Patient nontoxic. hx TIA on aspirin prophylaxis hypertension, BP stable hx pancreatic neuroendocrine tumor status post Whipple procedure DM2 insulin requiring, suboptimal control as of recent hemoglobin A1c of 7.7 last April 2022 anxiety/mood disorder, at baseline chronic anemia, hemoglobin better than baseline secondary to hemoconcentration. GMF Analgesia, IVF Clear liquid diet for now GI consult Re: Recurrent pancreatitis Basal bolus insulin adjusted for clear liquid diet, ISS BG goal 1 10-1 40, carb count coverage DVT prophylaxis per Lovenox subcu Full code Text document was generated using [employer] voice recognition software. It may contain grammatical or spelling errors. Kindly contact undersigned for clarification of any documentation item in question. History of Present Illness Chief Complaint: Normal pain, pancreatitis Primary Care Provider: Mady Sanders MD History obtained from patient, family, and records. 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 Last confinement 2 weeks ago for idiopathic pancreatitis. On and off achy abdominal discomfort nausea symptoms at home. Occasional back radiation. Symptoms worse yesterday. Patient trying to comply with bland diet. No recent EtOH intake. Patient unable to eat. No fever, no chills, no chest pain. Some shortness of breath attributed to discomfort. Patient seen at PCP's office. Directed to ER for evaluation. 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 Allergies Allergy/AdvReac Type Severity Reaction Status Date / Time clindamycin Allergy Intermediate itchy, Verified 05/25/22 22:23 diarrhea metoprolol Allergy Intermediate Chest Pain Verified 05/25/22 22:23 tamsulosin [From Flomax] AdvReac Mild nausea/vomi Verified 05/25/22 22:23 ting Home Medications Medication Instructions Recorded Confirmed Type aspirin 81 mg chewable tablet 81 mg PO QAM 04/15/22 05/25/22 History (Aspirin Childrens) atorvastatin 40 mg tablet 40 mg PO DAILY 04/15/22 05/25/22 History insulin aspart U-100 100 unit/mL 1 sliding scale dose subcut 04/15/22 05/25/22 History (3 mL) subcutaneous pen (Novolog USEASDIRECTD FlexPen U-100 Insulin aspart) insulin glargine 100 unit/mL (3 14 unit subcut HS 04/15/22 05/25/22 History mL) subcutaneous pen (Lantus Solostar U-100 Insulin) metformin 500 mg tablet,extended 500 mg PO BID 04/15/22 05/25/22 History release 24 hr nadolol 40 mg tablet 40 mg PO QAM 04/15/22 05/25/22 History ondansetron HCl 4 mg tablet 4 mg PO Q6H PRN Nausea 04/15/22 05/25/22 History venlafaxine 75 mg tablet,extended 75 mg PO QAM 04/15/22 05/25/22 History release 24 hr fenofibrate nanocrystallized 145 145 mg PO QAM 05/13/22 05/25/22 History mg tablet omeprazole 20 mg capsule,delayed 20 mg PO QAM 05/13/22 05/25/22 History release magnesium oxide 400 mg (241.3 mg 400 mg PO QAM #14 tabs 05/19/22 05/25/22 Rx magnesium) tablet Past Med/Surg History Medical History Anxiety Diabetes mellitus, type 2 History of COVID-19 beginning of 2021--mild symptoms, no symptoms now Hyperlipidemia Hypertension History of - per cardio records 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--had Whipple procedure done Pancreatitis recent admission at [facility] for this POTS (postural orthostatic tachycardia syndrome) Per cardio records Tachycardia Hx of--reason for Nadolol, per pt HR runs 85-99 with med "Inappropriate sinus tachycardia" per cardio records Transient ischemic attack (TIA) 2014--unknown cause--no deficits, on 81mg aspirin daily Surgical History History of abdominoplasty History of section History of colonoscopy History of esophagogastroduodenoscopy (EGD) History of hysterectomy History of Whipple procedure (~2013) with gallbladder removal History of wisdom tooth extraction Family History Other No family history of adverse response to anesthesia Social History Smoking Status: Never smoker Second Hand Exposure: No; Do You Dip or Chew Tobacco: No; Tobacco Cessation Education Requested by Patient: No Hx Alcohol Use: Yes Alcohol type: beer Hx Substance Use: No Preferred Language: Sammarinese Communication Ability: Effective Collet Gluer Required: No Beliefs That Will Affect Care: None Current Living Situation: Spouse Other Information That Helps Us Care for You: No Feels Safe at Home: Yes Safety Concerns: Feels Safe At This Time Assistive Devices: None Review of Systems Review of Systems: As per HPI, all other systems reviewed and negative Physical Exam Physical Exam: GENERAL: Comfortable, pleasant, no respiratory distress SKIN: Normal color, warm HEENT: Warm [place] palpebral conjunctivae, no ptosis, dry buccal mucosa NECK : Supple, no tenderness CHEST : CTA, no tenderness HEART : RRR, no obvious murmurs ABDOMEN: Some distention, epigastric tenderness EXTREMITIES : No LE swelling/tenderness, no other conspicuous deformities noted NEUROLOGIC : Coherent, no facial asymmetry, no other gross focality Results & Data Results & Data Vital Signs (Past 12 Hours) Vital Signs Temp Pulse Pulse Resp BP BP Pulse Ox 05/25/22 23:25 76 18 118/76 100 05/25/22 20:18 69 16 118/77 100 05/25/22 20:04 76 18 118/77 100 05/25/22 19:23 60 18 113/78 97 05/25/22 17:03 36.5 C 81 20 118/83 100 O2 Del Method 05/25/22 23:25 Room Air 05/25/22 20:18 Room Air 05/25/22 20:04 Room Air 05/25/22 19:23 Room Air 05/25/22 17:03 Room Air Laboratory Results Laboratory Results WBC 6.84 K/ul (4.8-10.8) 05/25/22 18:16 RBC 4.09 M/uL (4.20-5.40) L 05/25/22 18:16 Hgb 13.0 g/dl (12.0-16.0) 05/25/22 18:16 Hct 38.9 % (37.0-47.0) 05/25/22 18:16 MCV 95.1 fL (80.0-100.0) 05/25/22 18:16 MCH 31.8 pg (25.0-34.0) 05/25/22 18:16 MCHC 33.4 g/dL (32.0-36.0) 05/25/22 18:16 RDW Std Deviation 43.1 fL (36.4-46.3) 05/25/22 18:16 RDW Coeff of [place] 12.4 % (11.5-14.5) 05/25/22 18:16 Plt Count 425 K/uL (130-400) H 05/25/22 18:16 MPV 10.3 fL (9.4-12.4) 05/25/22 18:16 Immature Gran % (Auto) 0.4 % 05/25/22 18:16 Neut % (Auto) 52.6 % 05/25/22 18:16 Lymph % (Auto) 36.1 % 05/25/22 18:16 [place] % (Auto) 9.2 % 05/25/22 18:16 Eos % (Auto) 1.0 % 05/25/22 18:16 Baso % (Auto) 0.7 % 05/25/22 18:16 Neut # (Auto) 3.59 K/uL (1.40-6.50) 05/25/22 18:16 Lymph # (Auto) 2.47 K/uL (1.2-3.4) 05/25/22 18:16 [place] # (Auto) 0.63 K/uL (0.11-0.59) H 05/25/22 18:16 Eos # (Auto) 0.07 K/uL (0-0.50) 05/25/22 18:16 Baso # (Auto) 0.05 K/uL (0-0.2) 05/25/22 18:16 Immature Gran # (Auto) 0.03 K/uL (0.01-0.20) 05/25/22 18:16 PT 10.9 Seconds (9.0-12.0) 05/25/22 18:16 INR 1.0 (0.9-1.1) 05/25/22 18:16 Sodium 137 mmol/L (136-145) 05/25/22 18:16 Potassium 4.1 mmol/L (3.5-5.1) 05/25/22 18:16 Chloride 102 mmol/L (98-107) 05/25/22 18:16 Carbon Dioxide 27 mmol/L (21-32) 05/25/22 18:16 Anion Gap 8 (3-11) 05/25/22 18:16 BUN 16 mg/dl (6-23) 05/25/22 18:16 Creatinine 0.89 mg/dl (0.6-1.2) 05/25/22 18:16 Est Cr Clr Drug Dosing 89.8 ml/min 05/25/22 18:16 Est GFR ( Amer) 91.4 ml/min 05/25/22 18:16 Est GFR (Non-Af Amer) 78.8 ml/min 05/25/22 18:16 BUN/Creatinine Ratio 18.0 (10-20) 05/25/22 18:16 Glucose 112 mg/dl (70-99(Fasting)) H 05/25/22 18:16 Calcium 10.2 mg/dl (8.6-10.3) 05/25/22 18:16 Magnesium 1.9 mg/dl (1.7-2.4) 05/25/22 18:16 Total Bilirubin 0.3 mg/dl (0.2-1.0) 05/25/22 18:16 AST 24 U/L (13-39) 05/25/22 18:16 ALT 30 U/L (7-52) 05/25/22 18:16 Alkaline Phosphatase 73 U/L (34-104) 05/25/22 18:16 Troponin I High Sens 3.3 pg/ml (0-14) 05/25/22 18:16 Total Protein 7.9 gm/dl (6.0-8.3) 05/25/22 18:16 Albumin 4.6 gm/dl (3.4-5.0) 05/25/22 18:16 Globulin 3.3 gm/dl (2.5-4.0) 05/25/22 18:16 Albumin/Globulin Ratio 1.4 (0.9-2) 05/25/22 18:16 Triglycerides 190 mg/dl (0-150) H 05/25/22 18:16 Lipase 70 U/L (11-82) 05/25/22 18:16 Urine Color Yellow 05/25/22 23:57 Urine Appearance Clear (Clear) 05/25/22 23:57 Urine pH 6.5 (4.5-7.5) 05/25/22 23:57 Ur Specific [place] > 1.045 (1.000-1.030) H 05/25/22 23:57 Urine Protein Negative (Negative) 05/25/22 23:57 Urine Glucose (UA) Negative (Negative) 05/25/22 23:57 Urine Ketones Negative (Negative) 05/25/22 23:57 Urine Blood Negative (Negative) 05/25/22 23:57 Urine Nitrite Negative (Negative) 05/25/22 23:57 Urine Bilirubin Negative (Negative) 05/25/22 23:57 Urine Urobilinogen Negative (Negative) 05/25/22 23:57 Ur Leukocyte Esterase Negative (Negative) 05/25/22 23:57 SARS-CoV-2, RNA, NAAT NEGATIVE (NEGATIVE) 05/25/22 22:45 Impressions Abdomen/Pelvis CT 05/25/22 17:[address] WITH IV CONTRAST CT DOSE: 518.36 mGy.cm HISTORY: Acute left upper quadrant abdominal pain LUQ pain, h/o pancreatitis TECHNIQUE: Multiaxial CT images of the abdomen and pelvis were performed following the IV administration of 89 cc of Optiray, A dose lowering technique was utilized adhering to the principles of ALARA. COMPARISON STUDY: CT abdomen 05/18/2022, 05/13/2022 FINDINGS: Trace pleural effusions. No pneumatosis or pneumoperitoneum. Unremarkable spleen, and adrenal glands. Hepatic steatosis. Patency of the hepatic and portal veins. Postoperative changes suggestive of prior Whipple procedure redemonstrated. Findings a mild acute pancreatitis are redemonstrated with improving interstitial and peripancreatic inflammation. No acute peripancreatic fluid collection or pancreatic ductal dilation. Unremarkable right kidney. 4 mm nonobstructing calculus of the lateral interpolar left kidney with a punctate nonobstructing calculus inferiorly. No ureteral calculus or hydronephrosis. Unremarkable urinary bladder. Hysterectomy. Mild atherosclerosis of the aorta without aneurysm. No lymphadenopathy. No bowel obstruction or bowel wall thickening. Mild colonic fecal retention. Normal appendix. Postoperative changes of the intra-abdominal wall. No acute fracture. IMPRESSION: 1. Mildly improved findings of acute pancreatitis compared to the 05/18/2022 study. No evidence of pancreatic necrosis or acute peripancreatic fluid collection. 2. No bowel obstruction or bowel wall thickening. 3. Left nephrolithiasis. 4. Trace pleural effusions. 5. Hepatic steatosis. ACT 112: Negative or not required by law. The above report was generated using voice recognition software. It may contain grammatical, syntax or spelling errors. Electronically signed by: Obed Snow M.D. 05/25/2022 8:09 PM Chest X-Ray 05/25/22 17:07 XR chest 1V portable HISTORY: 46 years-old Female abdominal pain acute chest and abdominal pain COMPARISON: CT abdomen 05/18/2022 TECHNIQUE: AP view of the chest FINDINGS: Cardiomediastinal and hilar silhouettes are within normal limits. Probable trace pleural effusions. No pneumothorax, airspace consolidation or overt pulmonary edema. The bones appear grossly intact. IMPRESSION: 1. Trace pleural effusions are redemonstrated. 2. No airspace consolidation. ACT 112: Negative or not required by law. The above report was generated using voice recognition software. It may contain grammatical, syntax or spelling errors. Electronically signed by: Obed Snow M.D. 05/25/2022 6:02 PM
[2022-05-26] MEDS ORDERED: LACTATED RINGER'S 1,000 ML IV ONE (01:35)
[2022-05-26] MEDS ORDERED: ACETAMINOPHEN 325 MG TAB PO PRN (02:30)
[2022-05-26] MEDS ORDERED: CARBOHYDRATES FOR HYPOGLYCEMIA PO PRN (02:30)
[2022-05-26] MEDS ORDERED: GLUCOSE 40% GEL 15 GM TUBE PO PRN (02:30)
[2022-05-26] MEDS ORDERED: GLUCOSE 10 TAB/TUBE PO PRN (02:30)
[2022-05-26] MEDS ORDERED: GLUCAGON FOR INJ 1 MG VIAL SQ PRN (02:30)
[2022-05-26] MEDS ORDERED: DEXTROSE 50% 50 ML SYRINGE IV PRN (02:30)
[2022-05-26] MEDS: INSULIN ASPART PER UNIT CHARGE SC SCH ×5 (02:58→21:00)
[2022-05-26] MEDS: LACTATED RINGER'S 1,000 ML IV SCH ×4 (07:28→23:42)
[2022-05-26 07:33] LABS: Basophils # (auto) 0.05 K/uL (0-0.2); Eosinophils # (auto) 0.07 K/uL (0-0.50); Eosinophils % (auto) 1.5 %; Hematocrit (blood only) 35.7 % (37.0-47.0); Hemoglobin 11.6 g/dl (12.0-16.0); Immature Granulocytes # (auto) 0.02 K/uL (0.01-0.20); Immature Granulocytes % (auto) 0.4 %; Lymphocytes # (auto) 2.15 K/uL (1.2-3.4); Lymphocytes % (auto) 45.1 %; Mean Corpuscular Hemoglobin 31.7 pg (25.0-34.0); Mean Corpuscular Hgb Conc 32.5 g/dL (32.0-36.0); Mean Corpuscular Volume 97.5 fL (80.0-100.0); Mean Platelet Volume 10.2 fL (9.4-12.4); Monocytes # (auto) 0.54 K/uL (0.11-0.59); Monocytes % (auto) 11.3 %; Neutrophils # (auto) 1.94 K/uL (1.40-6.50); Neutrophils % (auto) 40.7 %; Platelet Count 348 K/uL (130-400); RDW Coefficient of Variation 12.1 % (11.5-14.5); RDW Standard Deviation 43.8 fL (36.4-46.3); Red Blood Count 3.66 M/uL (4.20-5.40); White Blood Count 4.77 K/ul (4.8-10.8)
[2022-05-26 08:14] LABS: Albumin Globulin Ratio 1.4 (0.9-2); Albumin Level 3.7 gm/dl (3.4-5.0); BUN Creatinine Ratio 15.9 (10-20); Bilirubin,Total 0.3 mg/dl (0.2-1.0); Creatinine Clr Calc Pharmacy 91.1 ml/min; Est GFR (African American) 92.6 ml/min; Est GFR (Non-African American) 79.9 ml/min; Globulin 2.7 gm/dl (2.5-4.0); Potassium 3.8 mmol/L (3.5-5.1); Total Protein 6.4 gm/dl (6.0-8.3)
[2022-05-26] MEDS: VENLAFAXINE HCL XR 75 MG CAPXR PO SCH (09:30)
[2022-05-26] MEDS: PANTOprazole 40 MG TAB PO SCH (09:30)
[2022-05-26] MEDS: ASPIRIN 81 MG ECTAB PO SCH (09:30)
[2022-05-26] MEDS: ENOXAPARIN INJ 40 MG/0.4 ML SYR SQ SCH (09:31)
[2022-05-26] MEDS: nadoloL 40 MG TAB PO SCH (09:31)
[2022-05-26] MEDS: oxyCODONE HCL IR 5 MG TAB (IMMEDIATE RELEASE) PO PRN ×2 (09:34→17:00)
--- NOTE | 2022-05-26 10:22 | Gastrointestinal Consultation ---
Date of Consultation May 26, 2022 Assessment & Plan (1) Pancreatitis: -Agree with Alis CARRINGTON's recommendations from last admission--consider Creon before meals and snacks when patient resumes a diet. -Agree with supportive measures of IV fluids & pain medications. -Advance diet as able. -Consider EUS/tertiary eval as an outpatient given recurrent pancreatitis s/p Whipple. Her Whipple was performed at [facility]. -Add Miralax 17 gm daily as she does note abdominal distention and constipation issues. History of Present Illness Reason for Consultation: Recurrent pancreatitis Attending Physician: Bridger Marcano MD History of Present Illness Patient is a 46 yo female with history of neuroendocrine tumor s/p Whipple in 2013. She has been admitted repeatedly in 2022 for pancreatitis. She was recently admitted and seen by Alis CARRINGTON & Dr. Zamudio on 05/15/2022 for pancreatitis. At the time, she had CT findings and elevated lipase consistent with pancreatitis. Recommendations were made for consideration of Creon initiation upon discharge. She notes she does not believe she was discharged wit h this medication. She notes that she began eating at home and was okay at first. Then she felt that she began experiencing abdominal distention, epigastric pain, with radiation to the back. She ntoes that she went to her PCP and it was advised that she present to the ED. CT upon admission on 05/25 indicated: 1. Mildly improved findings of acute pancreatitis compared to the 05/18/2022 [place] dy. No evidence of pancreatic necrosis or acute peripancreatic fluid collection. 2. No bowel obstruction or bowel wall thickening. 3. Left nephrolithiasis. 4. Trace pleural effusions. 5. Hepatic steatosis. Lipase was unremarkable. She notes improvement of the pain with IV narcotics, but notes that her abdominal distention remains. She notes she does have a tendency towards constipation. Last BM was 05/24/22. No further new issues reported at present. Allergies Allergy/AdvReac Type Severity Reaction Status Date / Time clindamycin Allergy Intermediate itchy, Verified 05/25/22 22:23 diarrhea metoprolol Allergy Intermediate Chest Pain Verified 05/25/22 22:23 tamsulosin [From Flomax] AdvReac Mild nausea/vomi Verified 05/25/22 22:23 ting Home Medications Medication Instructions Recorded Confirmed Type aspirin 81 mg chewable tablet 81 mg PO QAM 04/15/22 05/25/22 History (Aspirin Childrens) atorvastatin 40 mg tablet 40 mg PO DAILY 04/15/22 05/25/22 History insulin aspart U-100 100 unit/mL 1 sliding scale dose subcut 04/15/22 05/25/22 History (3 mL) subcutaneous pen (Novolog USEASDIRECTD FlexPen U-100 Insulin aspart) insulin glargine 100 unit/mL (3 14 unit subcut HS 04/15/22 05/25/22 History mL) subcutaneous pen (Lantus Solostar U-100 Insulin) metformin 500 mg tablet,extended 500 mg PO BID 04/15/22 05/25/22 History release 24 hr nadolol 40 mg tablet 40 mg PO QAM 04/15/22 05/25/22 History ondansetron HCl 4 mg tablet 4 mg PO Q6H PRN Nausea 04/15/22 05/25/22 History venlafaxine 75 mg tablet,extended 75 mg PO QAM 04/15/22 05/25/22 History release 24 hr fenofibrate nanocrystallized 145 145 mg PO QAM 05/13/22 05/25/22 History mg tablet omeprazole 20 mg capsule,delayed 20 mg PO QAM 05/13/22 05/25/22 History release magnesium oxide 400 mg (241.3 mg 400 mg PO QAM #14 tabs 05/19/22 05/25/22 Rx magnesium) tablet Patient History Medical History Anxiety Diabetes mellitus, type 2 History of COVID-19 beginning of 2021--mild symptoms, no symptoms now Hyperlipidemia Hypertension History of - per cardio records 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--had Whipple procedure done Pancreatitis recent admission at [facility] for this POTS (postural orthostatic tachycardia syndrome) Per cardio records Tachycardia Hx of--reason for Nadolol, per pt HR runs 85-99 with med "Inappropriate sinus tachycardia" per cardio records Transient ischemic attack (TIA) 2014--unknown cause--no deficits, on 81mg aspirin daily Surgical History History of abdominoplasty History of section History of colonoscopy History of esophagogastroduodenoscopy (EGD) History of hysterectomy History of Whipple procedure (~2013) with gallbladder removal History of wisdom tooth extraction Family History Other No family history of adverse response to anesthesia Social History Smoking Status: Never smoker Second Hand Exposure: No; Do You Dip or Chew Tobacco: No; Tobacco Cessation Education Requested by Patient: No Hx Alcohol Use: Yes Alcohol type: beer Hx Substance Use: No Preferred Language: Ukrainian Communication Ability: Effective Leather Flesher Required: No Beliefs That Will Affect Care: None Current Living Situation: Spouse Other Information That Helps Us Care for You: No Feels Safe at Home: Yes Safety Concerns: Feels Safe At This Time Assistive Devices: None Review of Systems Constitutional: no fever and no chills Respiratory: no cough and no dyspnea Cardiovascular: no chest pain Gastrointestinal: + abdominal pain and + constipation Physical Exam Constitutional: well developed Respiratory: normal respiratory effort Cardiovascular: Rate/Rhythm: regular rate Gastrointestinal (Abdomen): normal bowel sounds, soft, nontender, no hepatosplenomegaly Musculoskeletal: Head/Neck/Chest: normocephalic Psychiatric: Orientation: alert and oriented x 3 Results & Data Vital Signs (Past 12 Hours) Vital Signs Temp Pulse Resp BP Pulse Ox O2 Del Method 05/26/22 07:28 36.5 C 62 16 109/70 99 Room Air 05/26/22 02:30 36.6 C 72 18 134/85 100 Room Air 05/26/22 01:30 64 14 118/78 98 05/26/22 01:45 61 14 105/71 98 Room Air 05/25/22 23:25 76 18 118/76 100 Room Air PG Care Time/CCT Total # of Minutes Spent Total Time Spent with Patient: Total time spent is greater than 50% in coordination of care (as documented) at patient's floor/unit and/or counseling patient: Coding Level of Care Code 34932 IN/OBS CONSULT LVL 4,60M Diagnoses Pancreatitis K85.90
[2022-05-26] MEDS: POLYETHYLENE (MIRALAX) 17 GM PACK PO SCH (10:43)
[2022-05-26] MEDS: KETOROLAC TROMETHAMINE 15 MG/ML VIAL IV PRN ×2 (12:29→19:51)
[2022-05-26] MEDS ORDERED: ONDANSETRON INJ 2 MG/ML 2 ML VIAL IV PRN (12:49)
--- NOTE | 2022-05-26 12:54 | Electrocardiogram Report ---
Test Reason : Blood Pressure : / mmHG Vent. Rate : 072 BPM Atrial Rate : 072 BPM P-R Int : 142 ms QRS Dur : 080 ms QT Int : 408 ms P-R-T Axes : 026 072 037 degrees QTc Int : 446 ms Normal sinus rhythm Poor R wave progression, consider anterior SD vs. lead placement vs. LVH Nonspecific T wave abnormality Abnormal ECG When compared with ECG of 17-MAY-2022 12:39, Questionable change in QRS axis Nonspecific T wave abnormality has replaced inverted T waves in Inferior leads Nonspecific T wave abnormality now evident in Anterior leads Confirmed by Raj Prater ([id number]) on 05/26/2022 12:53:42 PM Referred By: Mady Sanders Confirmed By:Raj Prater
--- NOTE | 2022-05-26 16:02 | Hospitalist Progress Note ---
Date of Service May 26, 2022 Assessment & Plan (1) Pancreatitis: Plan: Recurrent pancreatitis H/O pancreatic neuroendocrine tumor S/P Whipple Constipation --CTA:Mildly improved findings of acute pancreatitis compared to the 05/18/2022 study. No evidence of pancreatic necrosis or acute peripancreatic fluid collection. No bowel obstruction or bowel wall thickening. Left nephrolithiasis. Trace pleural effusions. Hepatic steatosis. -- Clear liquid diet, advance as tolerated Continue IV fluids, pain control Added Creon Outpatient endoscopic ultrasound/Tertiary facility evaluation for recurrent pancreatitis Added MiraLAX Appreciate GI input H/O TIA on aspirin Hypertension BP stable Monitor DM II HbA1C 7.07 Apr 2022 Continue Insulin Monitor BGs Anxiety/mood disorder Continue home meds DVT Px: Lovenox SQ Code Status Full code Admission and Anticipated Discharge Date Admission Date: May 26, 2022 Subjective Patient is seen and examined at bedside States having abdominal pain associated with nausea Denies any chest pain, shortness of breath, dizziness No other complaints Review of Systems Review of Systems: All systems reviewed & are unremarkable except as noted in Subjective Physical Exam Physical Exam: Physical Exam: Vitals signs as noted above General Appearance:Moderately built and nourished, no apparent distress Head: normocephalic, Atraumatic Eyes: normal inspection, EOMI Neck: supple, Trachea midline Respiratory/Chest: Normal breath sounds, CTA, No accessory muscle use Cardiovascular: S1, S2, No murmur Abdomen/GI:Soft, Epigastric tender, Bowel sounds present Extremities/Musculoskeletal:normal inspection, no edema Neurologic/Psych:AAOX3, grossly no focal neurological deficits Skin: normal color, warm Results & Data Results & Data Vital Signs (Past 12 Hours) Vital Signs Temp Pulse Resp BP Pulse Ox O2 Del Method 05/26/22 15:22 36.8 C 73 16 110/71 99 Room Air 05/26/22 07:28 36.5 C 62 16 109/70 99 Room Air Laboratory Results Short CBC 05/25/22 05/26/22 Range/Units 18:16 06:43 WBC 6.84 4.77 L (4.8-10.8) K/ul Hgb 13.0 11.6 L (12.0-16.0) g/dl Hct 38.9 35.7 L (37.0-47.0) % Plt Count 425 H 348 (130-400) K/uL BMP 05/25/22 05/26/22 18:16 06:43 Sodium 137 140 Potassium 4.1 3.8 Chloride 102 105 Carbon Dioxide 27 28 BUN 16 14 Creatinine 0.89 0.88 Glucose 112 H 92 Calcium 10.2 9.0 Liver Function 05/25/22 05/26/22 Range/Units 18:16 06:43 Total Bilirubin 0.3 0.3 (0.2-1.0) mg/dl AST 24 25 (13-39) U/L ALT 30 24 (7-52) U/L Alkaline Phosphatase 73 62 (34-104) U/L Albumin 4.6 3.7 (3.4-5.0) gm/dl Urine 05/25/22 Range/Units 23:57 Urine Color Yellow Urine Appearance Clear (Clear) Urine pH 6.5 (4.5-7.5) Ur Specific [place] > 1.045 H (1.000-1.030) Urine Protein Negative (Negative) Urine Glucose (UA) Negative (Negative)
[2022-05-26] MEDS: PANCREAZE (LIPASE 10,500U) CAP PO SCH (16:58)
[2022-05-26] MEDS ORDERED: oxyCODONE HCL IR 5 MG TAB (IMMEDIATE RELEASE) PO PRN (19:38)
[2022-05-26] MEDS ORDERED: KETOROLAC 30 MG/ML VIAL IV ONE (20:00)
[2022-05-26] MEDS ORDERED: KETOROLAC TROMETHAMINE 15 MG/ML VIAL IV ONE (20:00)
[2022-05-26] MEDS ORDERED: LANTUS PER UNIT CHARGE SQ SCH (21:00)
[2022-05-26] MEDS ORDERED: HYDROmorphone INJ 0.5 MG/0.5 ML SYR IV PRN ×2 (21:02→22:55)
[2022-05-26] MEDS ORDERED: OPTIRAY 350 100ml IV ONE (21:49)
--- NOTE | 2022-05-26 22:04 | CT Scan Report ---
Exam(s): CT ABDOMEN + PELVIS With Contrast IV Amt: 84 ml optiray 350 EXAM: CT Abdomen and Pelvis With Intravenous Contrast CLINICAL HISTORY: Reason for exam: worsening abd pain. TECHNIQUE: Axial computed tomography images of the abdomen and pelvis with intravenous contrast. Automated exposure control was utilized for the study. A dose lowering technique was utilized adhering to the principles of ALARA. CONTRAST: Patient received 84 ml optiray 350 of IV contrast COMPARISON: No relevant prior studies available. FINDINGS: Lung bases: Unremarkable. No mass. No consolidation. Pleural space: Trace bilateral pleural effusions. ABDOMEN: Liver: Unremarkable. No mass. Gallbladder and bile ducts: Cholecystectomy. No ductal dilation. Pancreas: Unremarkable. No mass. No ductal dilation. Spleen: Unremarkable. No splenomegaly. Adrenals: Unremarkable. No mass. Kidneys and ureters: Nonobstructing 2 mm left midpole renal calculus. No hydronephrosis or delayed nephrogram. Stomach and bowel: Unremarkable. No acute diverticulitis. No small bowel obstruction. No free intraperitoneal air. PELVIS: Appendix: No secondary signs of acute appendicitis. Bladder: Decompressed urinary bladder. Reproductive: Hysterectomy. ABDOMEN and PELVIS: Intraperitoneal space: Unremarkable. No free air. No significant fluid collection. Bones/joints: Degenerative changes of the spine. No acute fracture. No dislocation. Soft tissues: Unremarkable. Vasculature: Atherosclerotic changes of the aorta. No abdominal aortic aneurysm. Lymph nodes: Unremarkable. No enlarged lymph nodes. IMPRESSION: 1. No acute diverticulitis. No small bowel obstruction. No free intraperitoneal air. 2. Cholecystectomy. 3. Hysterectomy. 4. Nonobstructing 2 mm left midpole renal calculus. Electronically signed by: Sergey Burton MD 05/26/22 22:03 PM
[2022-05-27] MEDS: LACTATED RINGER'S 1,000 ML IV SCH ×2 (04:33→10:33)
[2022-05-27 08:35] LABS: Hematocrit (blood only) 37.1 % (37.0-47.0); Hemoglobin 12.6 g/dl (12.0-16.0); Mean Corpuscular Hemoglobin 32.2 pg (25.0-34.0); Mean Corpuscular Volume 94.9 fL (80.0-100.0); Mean Platelet Volume 10.1 fL (9.4-12.4); Platelet Count 359 K/uL (130-400); RDW Coefficient of Variation 11.9 % (11.5-14.5); RDW Standard Deviation 41.2 fL (36.4-46.3); Red Blood Count 3.91 M/uL (4.20-5.40); White Blood Count 4.27 K/ul (4.8-10.8)
[2022-05-27] MEDS: ENOXAPARIN INJ 40 MG/0.4 ML SYR SQ SCH (09:03)
[2022-05-27] MEDS: PANTOprazole 40 MG TAB PO SCH (09:03)
[2022-05-27] MEDS: ASPIRIN 81 MG ECTAB PO SCH (09:03)
[2022-05-27] MEDS: nadoloL 40 MG TAB PO SCH (09:03)
[2022-05-27] MEDS: VENLAFAXINE HCL XR 75 MG CAPXR PO SCH (09:03)
[2022-05-27] MEDS: PANCREAZE (LIPASE 10,500U) CAP PO SCH ×2 (09:04→12:15)
[2022-05-27] MEDS: POLYETHYLENE (MIRALAX) 17 GM PACK PO SCH (09:05)
[2022-05-27] MEDS: INSULIN ASPART PER UNIT CHARGE SC SCH ×2 (09:05→12:46)
[2022-05-27 09:31] LABS: BUN Creatinine Ratio 9.4 (10-20); Calcium 9.1 mg/dl (8.6-10.3); Creatinine Clr Calc Pharmacy 94.3 ml/min; Est GFR (African American) 96.6 ml/min; Est GFR (Non-African American) 83.3 ml/min; Magnesium 1.6 mg/dl (1.7-2.4); Potassium 3.7 mmol/L (3.5-5.1)
[2022-05-27] MEDS ORDERED: MAGNESIUM CHLORIDE W/CALCIUM 64MG DELAYED REL TAB PO SCH (09:45)
--- NOTE | 2022-05-27 13:42 | Ultrasound Report ---
RENAL ULTRASOUND HISTORY: Left flank pain. left midpole renal calculus COMPARISON: Abdomen and pelvis CT 05/26/2022. FINDINGS: Right kidney: 11.3 cm. No hydronephrosis. Normal corticomedullary differentiation and cortical thickn ess. Left kidney: 11.3 cm. A 4 mm nonobstructing stone seen within the interpolar region. This remains sta ble. No hydronephrosis. Normal corticomedullary differentiation and cortical thickness. Bladder: No bladder wall thickening. The bilateral ureteral jets were identified. IMPRESSION: Stable left-sided nephrolithiasis. No hydronephrosis. ACT 112: Negative or not required by law. Electronically signed by: Marco Martell M.D. 05/27/2022 1:41 PM
--- NOTE | 2022-05-27 14:07 | Hospitalist Progress Note ---
Date of Service May 27, 2022 Assessment & Plan (1) Pancreatitis: Plan: Recurrent pancreatitis H/O pancreatic neuroendocrine tumor S/P Whipple Constipation --CTA:Mildly improved findings of acute pancreatitis compared to the 05/18/2022 study. No evidence of pancreatic necrosis or acute peripancreatic fluid collection. No bowel obstruction or bowel wall thickening. Left nephrolithiasis. Trace pleural effusions. Hepatic steatosis. -- Clear liquid diet, advance as tolerated Continue IV fluids, pain control Added Creon Outpatient endoscopic ultrasound/Tertiary facility evaluation for recurrent pancreatitis Added MiraLAX Appreciate GI input Clinically improved Tolerated low-fat diet Needs follow-up with GI upon discharge Nephrolithiasis Renal USD:Stable left-sided nephrolithiasis. No hydronephrosis. Denies any dysuria, hematuria Advised to follow-up as needed H/O TIA on aspirin Hypertension BP stable Monitor DM II HbA1C 7.07 Apr 2022 Continue Insulin Monitor BGs Anxiety/mood disorder Continue home meds Chronic hypomagnesemia Continue magnesium supplements DVT Px: Lovenox SQ Code Status Full code Admission and Anticipated Discharge Date Admission Date: May 26, 2022 Subjective Patient is seen and examined at bedside Abdominal pain much improved Tolerated low-fat diet States having mild left flank discomfort Nausea resolved Denies any chest pain, shortness of breath, dizziness, dysuria, hematuria Plan to discharge home today Review of Systems Review of Systems: All systems reviewed & are unremarkable except as noted in Subjective Physical Exam Physical Exam: Physical Exam: Vitals signs as noted above General Appearance:Moderately built and nourished, no apparent distress Head: normocephalic, Atraumatic Eyes: normal inspection, EOMI Neck: supple, Trachea midline Respiratory/Chest: Normal breath sounds, CTA, No accessory muscle use Cardiovascular: S1, S2, No murmur Abdomen/GI:Soft, non tender, Bowel sounds present Extremities/Musculoskeletal:normal inspection, no edema Neurologic/Psych:AAOX3, grossly no focal neurological deficits Skin: normal color, warm Results & Data Results & Data Vital Signs (Past 12 Hours) Vital Signs Temp Pulse Resp BP Pulse Ox O2 Del Method 05/27/22 07:57 36.4 C L 78 17 134/85 99 Room Air Laboratory Results Short CBC 05/27/22 Range/Units 07:58 WBC 4.27 L (4.8-10.8) K/ul Hgb 12.6 (12.0-16.0) g/dl Hct 37.1 (37.0-47.0) % Plt Count 359 (130-400) K/uL BMP 05/27/22 07:58 Sodium 139 Potassium 3.7 Chloride 104 Carbon Dioxide 30 BUN 8 Creatinine 0.85 Glucose 116 H Calcium 9.1
--- NOTE | 2022-05-27 14:35 | Discharge Summary ---
Date of Service May 27, 2022 Admission HPI Per Admitting Provider History obtained from patient, family, and records. 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 Last confinement 2 weeks ago for idiopathic pancreatitis. On and off achy abdominal discomfort nausea symptoms at home. Occasional back radiation. Symptoms worse yesterday. Patient trying to comply with bland diet. No recent EtOH intake. Patient unable to eat. No fever, no chills, no chest pain. Some shortness of breath attributed to discomfort. Patient seen at PCP's office. Directed to ER for evaluation. 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 Admission Exam Per Admitting Provider GENERAL: Comfortable, pleasant, no respiratory distress SKIN: Normal color, warm HEENT: [place] palpebral conjunctivae, no ptosis, dry buccal mucosa NECK : Supple, no tenderness CHEST : CTA, no tenderness HEART : RRR, no obvious murmurs ABDOMEN: Some distention, epigastric tenderness EXTREMITIES : No LE swelling/tenderness, no other conspicuous deformities noted NEUROLOGIC : Coherent, no facial asymmetry, no other gross focality Principal Diagnosis Recurrent pancreatitis Nephrolithiasis Discharge Data Allergies Allergy/AdvReac Type Severity Reaction Status Date / Time clindamycin Allergy Intermediate itchy, Verified 05/25/22 22:23 diarrhea metoprolol Allergy Intermediate Chest Pain Verified 05/25/22 22:23 tamsulosin [From Flomax] AdvReac Mild nausea/vomi Verified 05/25/22 22:23 ting Consultations 05/25/22 21:41 ED Decision to Admit Stat 05/26/22 02:30 Consult Gastroenterology Routine Procedures Performed Laboratory Results WBC 4.27 K/ul (4.8-10.8) L 05/27/22 07:58 RBC 3.91 M/uL (4.20-5.40) L 05/27/22 07:58 Hgb 12.6 g/dl (12.0-16.0) 05/27/22 07:58 Hct 37.1 % (37.0-47.0) 05/27/22 07:58 MCV 94.9 fL (80.0-100.0) 05/27/22 07:58 MCH 32.2 pg (25.0-34.0) 05/27/22 07:58 MCHC 34.0 g/dL (32.0-36.0) 05/27/22 07:58 RDW Std Deviation 41.2 fL (36.4-46.3) 05/27/22 07:58 RDW Coeff of [place] 11.9 % (11.5-14.5) 05/27/22 07:58 Plt Count 359 K/uL (130-400) 05/27/22 07:58 MPV 10.1 fL (9.4-12.4) 05/27/22 07:58 Immature Gran % (Auto) 0.4 % 05/26/22 06:43 Neut % (Auto) 40.7 % 05/26/22 06:43 Lymph % (Auto) 45.1 % 05/26/22 06:43 [place] % (Auto) 11.3 % 05/26/22 06:43 Eos % (Auto) 1.5 % 05/26/22 06:43 Baso % (Auto) 1.0 % 05/26/22 06:43 Neut # (Auto) 1.94 K/uL (1.40-6.50) 05/26/22 06:43 Lymph # (Auto) 2.15 K/uL (1.2-3.4) 05/26/22 06:43 [place] # (Auto) 0.54 K/uL (0.11-0.59) 05/26/22 06:43 Eos # (Auto) 0.07 K/uL (0-0.50) 05/26/22 06:43 Baso # (Auto) 0.05 K/uL (0-0.2) 05/26/22 06:43 Immature Gran # (Auto) 0.02 K/uL (0.01-0.20) 05/26/22 06:43 PT 10.9 Seconds (9.0-12.0) 05/25/22 18:16 INR 1.0 (0.9-1.1) 05/25/22 18:16 Sodium 139 mmol/L (136-145) 05/27/22 07:58 Potassium 3.7 mmol/L (3.5-5.1) 05/27/22 07:58 Chloride 104 mmol/L (98-107) 05/27/22 07:58 Carbon Dioxide 30 mmol/L (21-32) 05/27/22 07:58 Anion Gap 5 (3-11) 05/27/22 07:58 BUN 8 mg/dl (6-23) 05/27/22 07:58 Creatinine 0.85 mg/dl (0.6-1.2) 05/27/22 07:58 Est Cr Clr Drug Dosing 94.3 ml/min 05/27/22 07:58 Est GFR ( Amer) 96.6 ml/min 05/27/22 07:58 Est GFR (Non-Af Amer) 83.3 ml/min 05/27/22 07:58 BUN/Creatinine Ratio 9.4 (10-20) L 05/27/22 07:58 Glucose 116 mg/dl (70-99(Fasting)) H 05/27/22 07:58 POC Glucose 133 mg/dl (70-99) H 05/27/22 12:28 Calcium 9.1 mg/dl (8.6-10.3) 05/27/22 07:58 Magnesium 1.6 mg/dl (1.7-2.4) L 05/27/22 07:58 Total Bilirubin 0.3 mg/dl (0.2-1.0) 05/26/22 06:43 AST 25 U/L (13-39) 05/26/22 06:43 ALT 24 U/L (7-52) 05/26/22 06:43 Alkaline Phosphatase 62 U/L (34-104) 05/26/22 06:43 Troponin I High Sens 3.3 pg/ml (0-14) 05/25/22 18:16 B-Natriuretic Peptide 13 pg/ml (0-100) 05/26/22 00:39 Total Protein 6.4 gm/dl (6.0-8.3) 05/26/22 06:43 Albumin 3.7 gm/dl (3.4-5.0) 05/26/22 06:43 Globulin 2.7 gm/dl (2.5-4.0) 05/26/22 06:43 Albumin/Globulin Ratio 1.4 (0.9-2) 05/26/22 06:43 Triglycerides 190 mg/dl (0-150) H 05/25/22 18:16 Lipase 70 U/L (11-82) 05/25/22 18:16 Urine Color Yellow 05/25/22 23:57 Urine Appearance Clear (Clear) 05/25/22 23:57 Urine pH 6.5 (4.5-7.5) 05/25/22 23:57 Ur Specific [place] > 1.045 (1.000-1.030) H 05/25/22 23:57 Urine Protein Negative (Negative) 05/25/22 23:57 Urine Glucose (UA) Negative (Negative) 05/25/22 23:57 Urine Ketones Negative (Negative) 05/25/22 23:57 Urine Blood Negative (Negative) 05/25/22 23:57 Urine Nitrite Negative (Negative) 05/25/22 23:57 Urine Bilirubin Negative (Negative) 05/25/22 23:57 Urine Urobilinogen Negative (Negative) 05/25/22 23:57 Ur Leukocyte Esterase Negative (Negative) 05/25/22 23:57 SARS-CoV-2, RNA, NAAT NEGATIVE (NEGATIVE) 05/25/22 22:45 Impressions Chest X-Ray 05/25/22 17:07 XR chest 1V portable HISTORY: 46 years-old Female abdominal pain acute chest and abdominal pain COMPARISON: CT abdomen 05/18/2022 TECHNIQUE: AP view of the chest FINDINGS: Cardiomediastinal and hilar silhouettes are within normal limits. Probable trace pleural effusions. No pneumothorax, airspace consolidation or overt pulmonary edema. The bones appear grossly intact. IMPRESSION: 1. Trace pleural effusions are redemonstrated. 2. No airspace consolidation. ACT 112: Negative or not required by law. The above report was generated using voice recognition software. It may contain grammatical, syntax or spelling errors. Electronically signed by: Obed Snow M.D. 05/25/2022 6:02 PM Abdomen/Pelvis CT 05/26/22 21:02 Exam(s): CT ABDOMEN + PELVIS With Contrast IV Amt: 84 ml optiray 350 EXAM: CT Abdomen and Pelvis With Intravenous Contrast CLINICAL HISTORY: Reason for exam: worsening abd pain. TECHNIQUE: Axial computed tomography images of the abdomen and pelvis with intravenous contrast. Automated exposure control was utilized for the study. A dose lowering technique was utilized adhering to the principles of ALARA. CONTRAST: Patient received 84 ml optiray 350 of IV contrast COMPARISON: No relevant prior studies available. FINDINGS: Lung bases: Unremarkable. No mass. No consolidation. Pleural space: Trace bilateral pleural effusions. ABDOMEN: Liver: Unremarkable. No mass. Gallbladder and bile ducts: Cholecystectomy. No ductal dilation. Pancreas: Unremarkable. No mass. No ductal dilation. Spleen: Unremarkable. No splenomegaly. Adrenals: Unremarkable. No mass. Kidneys and ureters: Nonobstructing 2 mm left midpole renal calculus. No hydronephrosis or delayed nephrogram. Stomach and bowel: Unremarkable. No acute diverticulitis. No small bowel obstruction. No free intraperitoneal air. PELVIS: Appendix: No secondary signs of acute appendicitis. Bladder: Decompressed urinary bladder. Reproductive: Hysterectomy. ABDOMEN and PELVIS: Intraperitoneal space: Unremarkable. No free air. No significant fluid collection. Bones/joints: Degenerative changes of the spine. No acute fracture. No dislocation. Soft tissues: Unremarkable. Vasculature: Atherosclerotic changes of the aorta. No abdominal aortic aneurysm. Lymph nodes: Unremarkable. No enlarged lymph nodes. IMPRESSION: 1. No acute diverticulitis. No small bowel obstruction. No free intraperitoneal air. 2. Cholecystectomy. 3. Hysterectomy. 4. Nonobstructing 2 mm left midpole renal calculus. Electronically signed by: Sergey Burton MD 05/26/22 22:03 PM Renal Ultrasound 05/27/22 11:31 RENAL ULTRASOUND HISTORY: Left flank pain. left midpole renal calculus COMPARISON: Abdomen and pelvis CT 05/26/2022. FINDINGS: Right kidney: 11.3 cm. No hydronephrosis. Normal corticomedullary di fferentiation and cortical thickness. Left kidney: 11.3 cm. A 4 mm nonobstructing stone seen within the interpolar region. This remains stable. No hydronephrosis. Normal corticomedullary differentiation and cortical thickness. Bladder: No bladder wall thickening. The bilateral ureteral jets were identified. IMPRESSION: Stable left-sided nephrolithiasis. No hydronephrosis. ACT 112: Negative or not required by law. Electronically signed by: Marco Martell M.D. 05/27/2022 1:41 PM Ordered Studies 03/27/23 17:06 CT abd pelvis IV con only Stat 05/26/22 21:02 CT abd pelvis IV con only Urgent 05/27/22 11:31 US Renal Bladder [US renal/blad retro comp] Urgent Hospital Course (1) Pancreatitis: Recurrent pancreatitis H/O pancreatic neuroendocrine tumor S/P Whipple Constipation --CTA:Mildly improved findings of acute pancreatitis compared to the 05/18/2022 study. No evidence of pancreatic necrosis or acute peripancreatic fluid collection. No bowel obstruction or bowel wall thickening. Left nephrolithiasis. Trace pleural effusions. Hepatic steatosis. -- Clear liquid diet, advance as tolerated Continue IV fluids, pain control Added Creon Outpatient endoscopic ultrasound/Tertiary facility evaluation for recurrent panc reatitis Added MiraLAX Appreciate GI input Clinically improved Tolerated low-fat diet Needs follow-up with GI upon discharge Nephrolithiasis Renal USD:Stable left-sided nephrolithiasis. No hydronephrosis. Denies any dysuria, hematuria Advised to follow-up as needed H/O TIA on aspirin Hypertension BP stable Monitor DM II HbA1C 7.07 Apr 2022 Continue Insulin Monitor BGs Anxiety/mood disorder Continue home meds Chronic hypomagnesemia Continue magnesium supplements DVT Px: Lovenox SQ Code Status Full code Total Time Total Time Spent Total Time Spent (In Minutes): 54 minutes Discharge Plan Discharge Items Patient Disposition: Home - Self-Care Reason For Visit: PANCREATITIS Discharge Diagnosis: Recurrent pancreatitis Nephrolithiasis Activity: Per Instructions section Exercise/Sports: Gradually increase as tolerated Non-emergency contact: Primary Care Provider and 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 Sanders on 06/01/2022 11:00 AM Follow-up with your electronic tester in 2-3 weeks Follow-up with your urologist for further evaluation of kidney stones --- Get outpatient endoscopic ultrasound as recommended by your electronic tester for further evaluation of recurrent pancreatitis. Seek immediate medical attention if your symptoms reoccur or worsen Please take all medications as instructed on discharge list below. Please call if you have any questions or problems. You can reach a [facility] hospitalist on duty at [facility] 24 hours a day by calling [phone] Pending Studies at Discharge: No Stand-Alone Forms: [facility] Health, Smoking Cessation Medications and DC Order Prescriptions: New polyethylene glycol 3350 [Miralax] 17 gram Powder In Packet 17 g PO DAILY Qty: 30 1RF Creon 36,000-114,000- 180,000 unit Capsule,Delayed Release(Dr/Ec) 1 cap PO AC Qty: 90 1RF Continued atorvastatin 40 mg Tablet 40 mg PO DAILY ondansetron HCl 4 mg Tablet 4 mg PO Q6H PRN (Reason: Nausea) aspirin [Aspirin Childrens] 81 mg Tablet,Chewable 81 mg PO QAM nadolol 40 mg Tablet 40 mg PO QAM metformin 500 mg Tablet Extended Release 24 Hr 500 mg PO BID insulin aspart U-100 [Novolog FlexPen U-100 Insulin] 100 unit/mL (3 mL) Insulin Pen 1 sliding scale dose SUBCUT USEASDIRECTD insulin glargine [Lantus Solostar U-100 Insulin] 100 unit/mL (3 mL) Insulin Pen 14 unit SUBCUT HS venlafaxine 75 mg Tablet Extended Release 24hr 75 mg PO QAM omeprazole 20 mg capsule,delayed release(DR/EC) 20 mg PO QAM fenofibrate nanocrystallized 145 mg tablet 145 mg PO QAM magnesium oxide 400 mg (241.3 mg magnesium) Tablet 400 mg PO QAM Qty: 14 0RF Discharge Orders: Discharge Order (Routine); Ordered 05/27/22 Ordered By: Bridger Marcano Admission Data Admit Date/Time: 05/26/22 01:35 Attending Provider: Bridger Marcano Admit Provider: John Posey Primary Care Provider: Mady Sanders Other Providers: Antonette Lopez ; Roldan Le ; Alis Funez ; Lyudmila Silvestre ; Jossy Mccartney ; Lubna Ricketts ; Kvng Zamudio ; Kemal Burk ; Wing Sierra ; Carlos Renner ; Rishi Dueñas ; Grace Tee ; Nancy Jordan ; Jody Johnson ; Leann Rhodes ; Yu Nguyen ; Christiano Eugene ; Blaze Jules ; Latanya Abdi ; Gen Bautista Jr ; John Posey
== END 2022-05-27 15:09 | disposition home or self-care (01) ==
LOC: ED 16:21 → INTOOBSV 05-26 01:35 → 3N 05-26 01:35